=== PATIENT | male | born 1930 | race Caucasian/White ===

== ENCOUNTER 2017-04-10 03:25 | Observation (INO) | payer MEDICARE, OTHER ==
[2017-04-10] VITALS (13 sets, daily range): BP systolic 131–196; BP diastolic 67–93; PULSE 64–81; RESP 16–18; TEMP 97.5–98.6; O2SAT 95–99
[~2017-04-10] VITALS: Ht 165.1 cm; Wt 75.0 kg
[~2017-04-10 03:25] MED LIST: BISA5TAB5 PO; BYST10TA2 PO; CALC250 PO; DEXI60CA3 PO; DIOV320T PO; FISHCAP; HYDR-3580 PO; LEVO.1 PO; SINE25100 PO; TAB-TAB PO; WALKER ROLLING; WHEELCHAIR RENTAL RA
[2017-04-10] MEDS ORDERED: SODIUM CHLORIDE 0.9% FLUSH 10 ML FLUSH IVF PRN (03:45)
[2017-04-10] MEDS ORDERED: NITROGLYCERIN 0.4 MG SL 25 TABS/BTL SL ONE (03:45)
[2017-04-10] MEDS ORDERED: NITROGLYCERIN 2% OINT 1 GM PACKET TOP ONE (03:45)
[2017-04-10] MEDS ORDERED: ASPIRIN 81 MG CHEW TAB PO ONE (03:45)
[2017-04-10] MEDS ORDERED: DIOV320T PO (03:48)
[2017-04-10] MEDS ORDERED: BYST10TA2 PO (03:48)
--- NOTE | 2017-04-10 03:56 | PD ---
HPI Chief Complaint: Chest Pain Time Seen by Provider: 03:34 Travel History International Travel<30 days: No Contact w/Intl Traveler<30days: No Traveled to known affect area: No History of Present Illness HPI The patient is an 86 year old male who presents to the [facility] emergency department with a history of chest pain and dyspnea with exertion that began approximately 2 weeks ago. It became worse today. The chest pain occurs with exertion. The pain is in the left side of his chest. The pain is sharp in character. It was a 6/10 in severity. It radiated to the left arm. The patient denies ever having problems with chest pain in the past. He denies any prior history of coronary artery disease, however he does report having a history of a heart murmur. The patient reports that he last had a stress test done 2 years ago. He denies having any diaphoresis with the chest pain today. He reports that he has had some increased sweating when he rides a stationary bike , however he is newly recently riding a stationary bike. The patient denies having any nausea. On review of systems otherwise, the patient denies any recent fevers, cough, congestion, neck pain, abdominal pain, vomiting, diarrhea , urinary symptoms, or new neurologic symptoms. FOR[facility]LY [facility], [facility] Past Medical History Narrative Medical The patient's past medical history is significant forGERD- causes cough at time , hiatal hernia, hypertension, Parkinson's disease, chronic numbness to the left anterior thigh since having back surgery, and hypothyroid. PCP: Dr. Rena Craft. Arthritis: Yes Asthma: No Heart Rhythm Problems: No Cancer: Yes (SKIN CA) Cardiovascular Problems: No High Cholesterol: No Chest Pain: No Congestive Heart Failure: No COPD: No Cerebrovascular Accident: No Diabetes: No Diminished Hearing: Yes (BILAT HEARING AIDS) Endocrine: Yes GERD: Yes Genitourinary: No Hepatitis: No Hiatal Hernia: Yes Hypertension: Yes Immune Disorder: No Inguinal Hernia: Yes (left side) Implanted Vascular Access Dvce: Yes Kidney Stones: No Musculoskeletal: Yes (RIGHT SHOULDER ARTHRITIS) Neurologic: Yes (PARKINSONS) Parkinson's Disease: Yes Psychiatric: No Reproductive: No Respiratory: No Migraines: No Renal Failure: No Seizures: No Sleep Apnea: No Thyroid Disease: Yes (HYPO) Ulcer: No Tetanus Vaccination: < 5 Years Past Surgical History Narrative Surgical The patient's past surgical history is significant for right shoulder replacement, left inguinal hernia repair, eye surgery, skin cancer resection, bilateral hip replacement. Abdominal Surgery: Yes (LEFT INGUINAL HERNIA REPAIR) AICD: No Body Medical Devices: SCREW TO L3, PENILE IMPLANT, MESH TO LEFT GROIN Cardiac Surgery: No Ear Surgery: No Endocrine Surgery: No Eye Surgery: Yes (BILAT CATARACTS REMOVED & LENS IMPLANTS) Genitourinary Surgery: Yes (TURP) Gynecologic Surgery: No Joint Replacement: Yes (BILAT HIPS) Neurologic Surgery: Yes (L3,4,5 , SCREW IN L3) Oral Surgery: Yes (SKIN GRAFTING IN MOUTH) Pacemaker: No Thoracic Surgery: No Tonsillectomy: Yes Other Surgery: Yes Social History Alcohol Use: Yes (DAILY-1 GLASS OF WINE OR MARTINI) Tobacco Use: No (hx if cigars) Substance Use: No Allergies-Medications (Allergen,Severity, Reaction): Coded Allergies: No Known Allergies (Unverified , 04/10/17) Reported Meds & Prescriptions Reported Meds & Active Scripts Active Reported Synthroid (Levothyroxine Sodium) 100 Mcg Tab 100 Mcg PO DAILY Diovan (Valsartan) 320 Mg Tab 320 Mg PO DAILY Bystolic (Nebivolol) 10 Mg Tab 10 Mg PO BID Review of Systems Except as stated in HPI: all other systems reviewed are Neg General / Constitutional: No: Fever Eyes: No: Visual changes HENT: No: Headaches, Rhinorrhea, Congestion Cardiovascular: Positive: Chest Pain or Discomfort, Dyspnea on exertion Respiratory: Positive: Shortness of Breath, No: Cough Gastrointestinal: No: Nausea, Vomiting, Diarrhea, Abdominal Pain, Changes in Bowel Habits, Indigestion, Loss of Appetite Genitourinary: No: Dysuria Musculoskeletal: No: Pain Skin: No Rash Neurologic: No: Weakness, Focal Abnormalities, Change in Mentation, Slurred Speech, Sensory Disturbance Psychiatric: No: Depression Endocrine: No: Polydipsia Hematologic/Lymphatic: No: Easy Bruising Physical Exam Narrative General: The patient is a well-developed and nourished male in no acute distress. Head and Neck exam: Head is normocephalic atraumatic. Eyes: EOMI, pupils are equal round and reactive to light. Nose: Midline septum with pink mucous membranes Mouth: Dentition unremarkable. Moist mucus membranes. Posterior oropharynx is not erythematous. No tonsillar hypertrophy. Uvula midline. Airway patent. Neck: No palpable lymphadenopathy. No nuchal rigidity. No thyromegaly. Cardiovascular: Irregularly irregular with occasional premature supraventricular complexes noted on telemetry with a 2/6 systolic murmur audible. No murmur is best audible along the left lateral anterior axillary line. Lungs: Clear to auscultation bilaterally. No wheezes, rhonchi, or rales. Abdomen: Soft, without tenderness to palpation in all 4 quadrants of the abdomen. No guarding, rebound, or rigidity. Normal bowel sounds are audible. No tenderness on palpation of McBurney's point. Extremities: No clubbing, cyanosis, or edema. 2+ pulses in all 4 extremities. Back: No spinous process tenderness to palpation. No costovertebral angle tenderness to palpation. Neurologic Exam: Grossly nonfocal. Skin Exam: No rash noted. Intact skin that is warm and dry. Data Data Last Documented VS Vital Signs Date Time Temp Pulse Resp B/P (MAP) Pulse Ox O2 Delivery O2 Flow Rate FiO2 04/10/17 06:22 98.5 77 18 179/89 (119) 99 Nasal Cannula 2.00 Orders Orders Electrocardiogram (04/10/17 03:34) B-Type Natriuretic Peptide (04/10/17 03:34) Ckmb (Isoenzyme) Profile (04/10/17 03:34) Complete Blood Count With Diff (04/10/17 03:34) Comprehensive Metabolic Panel (04/10/17 03:34) Magnesium (Mg) (04/10/17 03:34) Prothrombin Time / Inr (Pt) (04/10/17 03:34) Act Partial Throm Time (Ptt) (04/10/17 03:34) Troponin I (04/10/17 03:34) Lipase (04/10/17 03:34) Chest, Single Ap (04/10/17 03:34) Ecg Monitoring (04/10/17 03:34) Bilateral Bp Monitoring (04/10/17 03:34) Iv Access Insert/Monitor (04/10/17 03:34) Oximetry (04/10/17 03:34) Oxygen Administration (04/10/17 03:34) Aspirin Chew (Aspirin Chew) (04/10/17 03:45) Nitroglycerin 2% Oint (Nitroglycerin 2% (04/10/17 03:45) Sodium Chloride 0.9% Flush (Ns Flush) (04/10/17 03:45) Nitroglycerin Sl (Nitrostat Sl) (04/10/17 03:45) Cta Thor Abd Aorta W Iv C W3d (04/10/17 06:20) CKMB (04/10/17 05:34) CKMB% (04/10/17 05:34) Labs Laboratory Tests Test 04/10/17 03:45 04/10/17 05:34 White Blood Count 7.3 TH/MM3 Red Blood Count 4.32 MIL/MM3 Hemoglobin 13.7 GM/DL Hematocrit 40.8 % Mean Corpuscular Volume 94.3 FL Mean Corpuscular Hemoglobin 31.8 PG Mean Corpuscular Hemoglobin Concent 33.7 % Red Cell Distribution Width 13.9 % Platelet Count 186 TH/MM3 Mean Platelet Volume 9.5 FL Neutrophils (%) (Auto) 70.9 % Lymphocytes (%) (Auto) 16.2 % Monocytes (%) (Auto) 9.4 % Eosinophils (%) (Auto) 2.8 % Basophils (%) (Auto) 0.7 % Neutrophils # (Auto) 5.2 TH/MM3 Lymphocytes # (Auto) 1.2 TH/MM3 Monocytes # (Auto) 0.7 TH/MM3 Eosinophils # (Auto) 0.2 TH/MM3 Basophils # (Auto) 0.1 TH/MM3 CBC Comment DIFF FINAL Differential Comment Prothrombin Time 10.8 SEC Prothromb Time International Ratio 1.0 RATIO Activated Partial Thromboplast Time 25.0 SEC B-Type Natriuretic Peptide 360 PG/ML Blood Urea Nitrogen 31 MG/DL Creatinine 1.17 MG/DL Random Glucose 98 MG/DL Total Protein 6.7 GM/DL Albumin 3.5 GM/DL Calcium Level 8.9 MG/DL Alkaline Phosphatase 84 U/L Aspartate Amino Transf (AST/SGOT) 26 U/L Alanine Aminotransferase (ALT/SGPT) 9 U/L Total Bilirubin 0.6 MG/DL Sodium Level 139 MEQ/L Potassium Level 4.2 MEQ/L Chloride Level 105 MEQ/L Carbon Dioxide Level 24.5 MEQ/L Anion Gap 10 MEQ/L Estimat Glomerular Filtration Rate 59 ML/MIN Total Creatine Kinase 147 U/L Troponin I 0.03 NG/ML Lipase 127 U/L [facility] Medical Decision Making Medical Screen Exam Complete: Yes Emergency Medical Condition: Yes Medical Record Reviewed: Yes Interpretation(s) Last Impressions Chest X-Ray 04/10/17 0334 Signed Impressions: Service Date/Time: Monday, April 10, 2017 03:40 - CONCLUSION: 1. Reticular nodular interstitial densities in the upper lobes. 2. Cardiomegaly and retrocardiac density. This could represent hiatal hernia but descending thoracic aortic aneurysm cannot be excluded. Contrasted CT chest recommended. Robbi Lobato MD Differential Diagnosis Aortic dissection, versus pneumonia, versus new-onset congestive heart failure, versus acute coronary syndrome Narrative Course During the course of the patients emergency department visit, the patients history, examination, and differential diagnosis were reviewed with the patient. The patient was placed on a barrel bung remover and dumper with oximetry and frequent blood pressure monitoring. The patient had [-] IV access obtained and blood work sent for analysis. The patient had an EKG done on arrival. The patient's ECG reveals a sinus rhythm with frequent supraventricular premature complexes, QRS duration is 107 ms, QTc is 433 ms. The patient has no acute ST segment elevation noted. The patient was given 162 mg of aspirin by mouth by ambulance services and nitroglycerin sublingual 1. The patient had written nitroglycerin sublingual by mouth 1 when necessary recurrent chest pain, nitroglycerin 1 inch to the chest wall. The patients laboratory studies were reviewed and remarkable for white count of 7.3, hemoglobin 13.7, platelets 186 with 70.9 neutrophils, 9.4 monocytes, CMP is remarkable for a GFR 59, ALT 9, CPK 147, troponin I 0.03, BNP 360, PT PTT within normal limits. Radiology studies were reviewed and remarkable for a chest x-ray that shows reticular nodular interstitial densities in the upper lobes, cardiomegaly and retrocardiac density. This could represent a hiatal hernia but descending thoracic aortic aneurysm cannot be excluded. Contrasted CT of the chest is recommended. This was ordered. The patient's results are pending at the conclusion of my shift. The patient was noted to be hypertensive. The patient had his hypertension treated with labetalol. Aparna Wan MD Apr 10, 2017 03:56
[2017-04-10 04:07] LABS: AUTOMATED NEUTROPHIL # 5.2 TH/MM3 (1.8-7.7); BASOPHIL # 0.1 TH/MM3 (0-0.2); BASOPHIL % 0.7 % (0.0-2.0); EOSINOPHIL # 0.2 TH/MM3 (0-0.4); EOSINOPHIL % 2.8 % (0.0-4.0); HEMATOCRIT 40.8 % (39.0-51.0); HEMOGLOBIN 13.7 GM/DL (13.0-17.0); LYMPH % 16.2 % (9.0-44.0); LYMPHOCYTE # 1.2 TH/MM3 (1.0-4.8); MEAN CELL VOLUME 94.3 FL (80.0-100.0); MEAN CORPUSCULAR HEMOGLOBIN 31.8 PG (27.0-34.0); MEAN CORPUSCULAR HGB CONC 33.7 % (32.0-36.0); MEAN PLATELET VOLUME 9.5 FL (7.0-11.0); MONO % 9.4 % (0.0-8.0); MONOCYTE # 0.7 TH/MM3 (0-0.9); NEUT % 70.9 % (16.0-70.0); PLATELET COUNT 186 TH/MM3 (150-450); RED BLOOD COUNT 4.32 MIL/MM3 (4.50-5.90); RED CELL DISTRIBUTION WIDTH 13.9 % (11.6-17.2); WHITE BLOOD COUNT 7.3 TH/MM3 (4.0-11.0)
[2017-04-10 04:17] LABS: PROTHROMBIN TIME - PATIENT 10.8 SEC (9.8-11.6)
[2017-04-10] MEDS ORDERED: LEVO.1 PO (04:40)
--- NOTE | 2017-04-10 06:13 | RADRPT ---
EXAM DATE/TIME: 04/10/2017 03:40 [facility] COMPARISON: CHEST PA & LAT, December 23, 2014, 14:36. INDICATIONS : Chest pain MEDICAL HISTORY : Hypertension. Gastroesophageal reflux disease. Parkinson's disease, hypothyroid, skin cancer SURGICAL HISTORY : Tonsillectomy. Pacemaker. Bilateral hip replacement, ENCOUNTER: Initial ACUITY: 1 day PAIN SCORE: 6/10 LOCATION: Bilateral chest FINDINGS: A single view of the chest demonstrates minimal left basilar density. Reticular nodular interstitial disease. No consolidation. Heart enlarged. Retrocardiac density. The cardiomediastinal contours are u nremarkable. Osseous structures are intact. CONCLUSION: 1. Reticular nodular interstitial densities in the upper lobes. 2. Cardiomegaly and retrocardiac density. This could represent hiatal hernia but descending thoracic aortic aneurysm cannot be excluded. Contrasted CT chest recommended. Robbi Lobato MD on April 10, 2017 at 6:09 Board Certified Radiologist. This report was verified electronically.
[2017-04-10 06:34] LABS: ALBUMIN 3.5 GM/DL (3.4-5.0); BLOOD UREA NITROGEN 31 MG/DL (7-18); CALCIUM 8.9 MG/DL (8.5-10.1); CREATININE 1.17 MG/DL (0.60-1.30); GLOMERULAR FILTRATION RATE 59 ML/MIN (>89); GLUCOSE,RANDOM 98 MG/DL (74-106); TOTAL PROTEIN 6.7 GM/DL (6.4-8.2)
[2017-04-10 06:35] LABS: ALKALINE PHOSPHATASE 84 U/L (45-117); ALT (GPT) 9 U/L (12-78); AST (GOT) 26 U/L (15-37); CHLORIDE 105 MEQ/L (98-107); SODIUM (NA) 139 MEQ/L (136-145); TOTAL BILIRUBIN ADULT 0.6 MG/DL (0.2-1.0)
[2017-04-10 06:36] LABS: BICARBONATE 24.5 MEQ/L (21.0-32.0); LIPASE 127 U/L (73-393); TROPONIN I 0.03 NG/ML (0.02-0.05)
[2017-04-10] MEDS ORDERED: LABETALOL HCL 100 MG/20 ML VIAL IV PUSH ONE (07:00)
[2017-04-10 07:21] LABS: MAGNESIUM 2.1 MG/DL (1.5-2.5)
[2017-04-10] MEDS ORDERED: IOHEXOL 350 MG/ML 10 ML VIAL (for RAD DIAG) IVCONTRAST ONE (08:34)
--- NOTE | 2017-04-10 09:26 | RADRPT ---
EXAM DATE/TIME: 04/10/2017 08:28 [facility] COMPARISON: CHEST SINGLE AP, April 10, 2017, 3:40. INDICATIONS : Chest pain and dyspnea on exertion for two weeks. IV CONTRAST: 90 cc Omnipaque 350 (iohexol) IV RADIATION DOSE: 16.25 CTDIvol (mGy) MEDICAL HISTORY : Gastroesophageal reflux disease. Hypertension. SURGICAL HISTORY : TURP, lumbar fusion ENCOUNTER: Initial ACUITY: 1 day PAIN SCALE: 5/10 LOCATION: chest TECHNIQUE: Volumetric scanning was performed using a multi-row detector CT scanner. The data was post processed with a variety of visualization algorithms including full volume maximum intensity projection, multi -planar sliding thin slab reformation, curved planar reformation, and surface rendering techniques. Using automated exposure control and adjustment of the mA and/or kV according to patient size, radiat ion dose was kept as low as reasonably achievable to obtain optimal diagnostic quality images. DICOM format image data is available electronically for review and comparison. FINDINGS: LUNGS: Intralobular septal thickening and patchy adjacent 3 mm and 4 mm nodules in the anterior right upper lobe. 6 mm nodule in the superior segment of the right lower lobe. groundglass opacities in the poste rior upper lobes and lower lobes bilaterally. MEDIASTINUM: Dense coronary artery calcifications. Right hilar nodes measuring up to 1.2 cm subcentimeter mediasti nal nodes are not meet CT size criteria. Heart is mildly enlarged without significant pericardial eff usion. ABDOMEN: Large hiatal hernia. The liver and spleen are free of focal defects. The gallbladder and pancreas dem onstrate no abnormality. Mild adreniform enlargement of the adrenal glands with 1.1 cm nodule in the right medial limb. The kidneys demonstrate no evidence of solid renal mass or hydronephrosis. No free fluid or abdominal masses are identified. No para-aortic adenopathy is seen. PELVIS: No evidence of free fluid or pelvic mass. No abnormally enlarged inguinal or retroperitoneal lymph no melisa are present. Prosthesis in place. The bladder is unremarkable. Bilateral hip arthroplasties in pl [place]. THORACIC AORTA: The ascending thoracic aorta is ectatic measuring up to 3.9 cm. There is stent a 3 vessel arch anatom y. Thoracic arch and descending thoracic aorta demonstrates scattered calcified plaque without eviden ce for aneurysm or dissection. There is no evidence of aneurysm or dissection. There is tortuosity of the distal blastic aorta at the hiatus. ABDOMINAL AORTA: The aorta is normal in caliber without aneurysm or dissection. The renal arteries are patent bilater ally. The proximal celiac and superior mesenteric arteries are patent and normal in diameter. PELVIC VESSELS: The internal iliac and external iliac vessels are patent without aneurysm or stenosis. CONCLUSION: 1. Ectatic ascending thoracic aorta measuring up to 3.9 cm. Otherwise, no evidence for aortic dissect ion or aneurysm. Abnormality on radiograph corresponds to large hiatal hernia. 2. Mild intralobular septal thickening and patchy groundglass opacities which may reflect mild positi ve fluid balance. 3. At least 3 distinct pulmonary nodules measuring up to 6 mm. Followup examination may be performed in 12 months particularly if patient is high risk, per 2017 Fleischner criteria. 4. 1.1 cm right adrenal mass. This is not fully characterized due to single phase contrast examinatio n. Further characterization may be performed with noncontrast CT or adrenal mass protocol CT/MRI exam if clinically warranted. 5. Dense coronary artery calcifications. 6. Nonspecific minimal right hilar adenopathy. Enmanuel Samson MD on April 10, 2017 at 9:02 Board Certified Radiologist. This report was verified electronically.
--- NOTE | 2017-04-10 10:09 | PD ---
Data Data Last Documented VS Vital Signs Date Time Temp Pulse Resp B/P (MAP) Pulse Ox O2 Delivery O2 Flow Rate FiO2 04/10/17 09:43 68 18 185/89 (121) 98 Nasal Cannula 2.00 04/10/17 06:22 98.5 Orders Orders Electrocardiogram (04/10/17 03:34) B-Type Natriuretic Peptide (04/10/17 03:34) Ckmb (Isoenzyme) Profile (04/10/17 03:34) Complete Blood Count With Diff (04/10/17 03:34) Comprehensive Metabolic Panel (04/10/17 03:34) Magnesium (Mg) (04/10/17 03:34) Prothrombin Time / Inr (Pt) (04/10/17 03:34) Act Partial Throm Time (Ptt) (04/10/17 03:34) Troponin I (04/10/17 03:34) Lipase (04/10/17 03:34) Chest, Single Ap (04/10/17 03:34) Ecg Monitoring (04/10/17 03:34) Bilateral Bp Monitoring (04/10/17 03:34) Iv Access Insert/Monitor (04/10/17 03:34) Oximetry (04/10/17 03:34) Oxygen Administration (04/10/17 03:34) Aspirin Chew (Aspirin Chew) (04/10/17 03:45) Nitroglycerin 2% Oint (Nitroglycerin 2% (04/10/17 03:45) Sodium Chloride 0.9% Flush (Ns Flush) (04/10/17 03:45) Nitroglycerin Sl (Nitrostat Sl) (04/10/17 03:45) Cta Thor Abd Aorta W Iv C W3d (04/10/17 06:20) CKMB (04/10/17 05:34) CKMB% (04/10/17 05:34) Labetalol Inj (Trandate Inj) (04/10/17 07:00) Iohexol 350 Inj (Omnipaque 350 Inj) (04/10/17 08:34) Furosemide Inj (Lasix Inj) (04/10/17 10:15) Admit Order (Ed Use Only) (04/10/17 ) Rehab Manager / Telemetry ALFONSO.Q8H (04/10/17 10:07) Vital Signs (Adult) Q4H (04/10/17 10:07) Diet Heart Healthy (04/10/17 Lunch) Activity Oob With Assistance (04/10/17 10:07) Notify Dr: Other (04/10/17 10:07) Labs Laboratory Tests Test 04/10/17 03:45 04/10/17 05:34 White Blood Count 7.3 TH/MM3 Red Blood Count 4.32 MIL/MM3 Hemoglobin 13.7 GM/DL Hematocrit 40.8 % Mean Corpuscular Volume 94.3 FL Mean Corpuscular Hemoglobin 31.8 PG Mean Corpuscular Hemoglobin Concent 33.7 % Red Cell Distribution Width 13.9 % Platelet Count 186 TH/MM3 Mean Platelet Volume 9.5 FL Neutrophils (%) (Auto) 70.9 % Lymphocytes (%) (Auto) 16.2 % Monocytes (%) (Auto) 9.4 % Eosinophils (%) (Auto) 2.8 % Basophils (%) (Auto) 0.7 % Neutrophils # (Auto) 5.2 TH/MM3 Lymphocytes # (Auto) 1.2 TH/MM3 Monocytes # (Auto) 0.7 TH/MM3 Eosinophils # (Auto) 0.2 TH/MM3 Basophils # (Auto) 0.1 TH/MM3 CBC Comment DIFF FINAL Differential Comment Prothrombin Time 10.8 SEC Prothromb Time International Ratio 1.0 RATIO Activated Partial Thromboplast Time 25.0 SEC B-Type Natriuretic Peptide 360 PG/ML Blood Urea Nitrogen 31 MG/DL Creatinine 1.17 MG/DL Random Glucose 98 MG/DL Total Protein 6.7 GM/DL Albumin 3.5 GM/DL Calcium Level 8.9 MG/DL Magnesium Level 2.1 MG/DL Alkaline Phosphatase 84 U/L Aspartate Amino Transf (AST/SGOT) 26 U/L Alanine Aminotransferase (ALT/SGPT) 9 U/L Total Bilirubin 0.6 MG/DL Sodium Level 139 MEQ/L Potassium Level 4.2 MEQ/L Chloride Level 105 MEQ/L Carbon Dioxide Level 24.5 MEQ/L Anion Gap 10 MEQ/L Estimat Glomerular Filtration Rate 59 ML/MIN Total Creatine Kinase 147 U/L Creatine Kinase MB 4.2 NG/ML Troponin I 0.03 NG/ML Lipase 127 U/L [facility] Medical Record Reviewed: Yes Supervised Visit with EBONY: No Narrative Course CBC & BMP Diagram 04/10/17 03:45 04/10/17 05:34 Total Protein 6.7, Albumin 3.5, Calcium Level 8.9, Magnesium Level 2.1, Alkaline Phosphatase 84, Aspartate Amino Transf (AST/SGOT) 26, Alanine Aminotransferase (ALT/SGPT) 9 L, Total Bilirubin 0.6 Troponin 0.03 BNP 360 Lasix given pain resolved after prior provided gave nitro d/w Dr [place] Diagnosis Primary Impression: Pulmonary edema Additional Impression: Chest pain Admitting Information Admitting Physician Requests: Observation Hiren Lion MD Apr 10, 2017 10:09
[2017-04-10] MEDS ORDERED: ONDANSETRON HCL 4 MG/2 ML VIAL IVP PRN (10:15)
[2017-04-10] MEDS ORDERED: FUROSEMIDE 40 MG/4 ML VIAL IV PUSH ONE (10:15)
[2017-04-10] MEDS ORDERED: SODIUM CHLORIDE 0.9% FLUSH 10 ML FLUSH IV FLUSH PRN (10:15)
[2017-04-10] MEDS ORDERED: NALOXONE HCL 0.4 MG/ML AMP IV PUSH PRN (10:15)
[2017-04-10] MEDS ORDERED: BISACODYL 10 MG SUPP RECTAL PRN (10:15)
[2017-04-10] MEDS ORDERED: MAGNESIUM HYDROXIDE SUSP 30 ML CUP PO PRN (10:15)
--- NOTE | 2017-04-10 10:31 | EKG ---
Date Performed: 04/10/2017 Time Performed: 03:35:14 PTAGE: 86 years EKG: Sinus rhythm WITH FREQUENT SUPRAVENTRICULAR PREMATURE COMPLEXES LEFT VENTRICULAR HYPERTROPHY AND ST-T CHANGE ABNO RMAL ECG Compared to PREVIOUS TRACING frequent ectopy is new PREVIOUS TRACIN03/07/2016 11.29 DOCTOR: Piter Truong Interpretating Date/Time 04/10/2017 10:29:01
[2017-04-10] MEDS: HEPARIN SODIUM - SQ 10,000 UNITS/ML VIAL SQ SCH ×2 (11:06→23:42)
[2017-04-10] MEDS: hydrALAZINE HCL 50 MG TAB PO PRN ×2 (11:39→15:41)
[2017-04-10 12:41] LABS: TROPONIN I 0.05 NG/ML (0.02-0.05)
[2017-04-10] MEDS ORDERED: SINE25TA PO (13:30)
--- NOTE | 2017-04-10 15:50 | MB ---
cc: DIMITRI POWELL DO DATE OF CONSULTATION: April 10, 2017 REASON FOR CONSULTATION Chest pain/shortness of breath. HISTORY OF PRESENT ILLNESS Bishop Ayala is a pleasant 86-year-old male who presented to [facility] Emergency Room on April 10, 2017 due to chest pain and shortness of breath. He states that the chest pain and shortness of breath started around 2 weeks ago but has been becoming worse over the past 2 days. Apparently, his chest pain occurs with exertion and is on the left side of his chest. Overall, it is sharp and stabbing in nature and seems to only last a few seconds when he does get it. His main concern is shortness of breath with any type of exertion. He denies any history of chest pain or shortness of breath. He previously had a stress test done around [id number] years ago by he believes Dr. Rodríguez in the office, although he is unsure. He denies any other symptoms at this time. In seeing him he is currently resting comfortably without chest pain or shortness of breath. PAST MEDICAL HISTORY 1. Gastroesophageal reflux disease. 2. Hiatal hernia. 3. Hypertension. 4. Parkinson's disease. 5. Chronic numbness of the left anterior thigh since back surgery. 6. Hypothyroidism. PAST SURGICAL HISTORY 1. Right shoulder replacement. 2. Left inguinal hernia repair. 3. Eye surgery. 4. Skin cancer resection. 5. Bilateral hip replacement. ALLERGIES NO KNOWN DRUG ALLERGIES. MEDICATIONS 1. Bystolic 10 mg b.i.d. 2. Diovan 320 mg daily. 3. Sinemet 25/100 every 8 hours. 4. Synthroid 100 mcg daily. FAMILY HISTORY Denies premature coronary artery disease or sudden cardiac within the family. SOCIAL HISTORY The patient drinks 1 glass of wine or a Martini at night. He denies current tobacco abuse but previously smoked cigars. Denies drug abuse. REVIEW OF SYSTEMS A 14-systems were reviewed including osteopathic pertinent positives and negatives above, otherwise negative. PHYSICAL EXAMINATION VITAL SIGNS: Temperature 97.6, heart rate 69, blood pressure 196/93, respirations 16, pulse ox 95% on 2 liters. GENERAL: The patient appears well, in no acute distress, alert awake and oriented x3. HEENT: Extraocular muscles intact. Mucous membranes moist. NECK: Supple. No JVD at 45 degrees. No carotid bruits heard bilaterally. Carotid upstroke is brisk in nature. HEART: Regular rate and rhythm. Positive first and second heart sounds with a 1/6 crescendo-decrescendo murmur to the right sternal border. LUNGS: Lungs have decreased breath sounds bilaterally but no overt wheezes, rales or rhonchi. ABDOMEN: Abdomen is soft, nontender, nondistended. No organomegaly noted. EXTREMITIES: Show no clubbing, cyanosis or edema. Femoral and distal pulses intact bilaterally. NEUROLOGIC: Neurologically no focal deficits. SKIN: Skin warm, dry and intact. OSTEOPATHIC: No kyphoscoliosis, lordosis or paraspinal tender points. LABORATORY FINDINGS Hemoglobin 13.7, hematocrit 40.8, platelets 186. Potassium 4.2, BUN 31, creatinine 1.17. Troponin 0.05. BNP 360. ELECTROCARDIOGRAM Electrocardiogram (April 10, 2017 at 0335) sinus rhythm with frequent supraventricular complexes, LVH with secondary ST-T wave changes. IMPRESSION 1. Acute heart failure, unsure at this time if systolic versus diastolic. 2. Atypical chest pain for coronary insufficiency. 3. Hypertension. 4. Most likely mild aortic stenosis. RECOMMENDATIONS 1. Mr. Ayala appears to be presenting with atypical chest pain which does not appear to be acute coronary syndrome. We will await echo results and then possibly further work this up with an ischemic evaluation. 2. He also appears to have acute heart failure and this may be due to his elevated hypertension and diastolic heart failure versus new-onset systolic heart failure. 3. Will check an echo to look at his overall left ventricular function, cardiac structure and possible valvulopathies. 4. He will need further blood pressure management and control. 5. He will need to be diuresed gently. 6. Further recommendations will be made based on the hospital course. Thank you for allowing me to see Bishop Ayala, if there are any questions, please do not hesitate to call. Dimitri Powell DO VGP/TLL /2:36 PM /3:25 PM
[2017-04-10] MEDS: VALSARTAN 160 MG TAB PO SCH (17:01)
[2017-04-10] MEDS: LEVOTHYROXINE SODIUM 100 MCG TAB PO SCH (17:02)
[2017-04-10] MEDS ORDERED: CARBIDOPA/LEVODOPA 25 MG/100 MG TAB PO SCH (18:00)
[2017-04-10] MEDS: CARBIDOPA/LEVODOPA 25 MG/100 MG TAB PO SCH ×2 (18:38→21:16)
[2017-04-10] MEDS: SPIRONOLACTONE 25 MG TAB PO SCH (18:38)
[2017-04-10] MEDS: FUROSEMIDE 40 MG/4 ML VIAL IV PUSH SCH (18:38)
[2017-04-10 19:41] LABS: TROPONIN I 0.03 NG/ML (0.02-0.05)
[2017-04-10] MEDS: DOCUSATE SODIUM 50 MG/SENNA 8.6 MG TAB PO SCH (21:16)
[2017-04-10] MEDS: NEBIVOLOL 10 MG TAB PO SCH (21:16)
[2017-04-10] MEDS: SODIUM CHLORIDE 0.9% FLUSH 10 ML FLUSH IV FLUSH SCH (21:16)
[2017-04-11] VITALS (15 sets, daily range): BP systolic 103–179; BP diastolic 55–81; PULSE 51–68; RESP 16–17; TEMP 97.6–98.8; O2SAT 97–100
[2017-04-11] MEDS: CARBIDOPA/LEVODOPA 25 MG/100 MG TAB PO SCH ×5 (05:27→22:09)
[2017-04-11] MEDS: LEVOTHYROXINE SODIUM 100 MCG TAB PO SCH (05:27)
[2017-04-11] MEDS: hydrALAZINE HCL 50 MG TAB PO PRN (05:52)
[2017-04-11] MEDS: SODIUM CHLORIDE 0.9% FLUSH 10 ML FLUSH IV FLUSH SCH ×2 (08:47→22:09)
[2017-04-11] MEDS: ASPIRIN 81 MG CHEW TAB CHEW SCH (08:47)
[2017-04-11] MEDS: DOCUSATE SODIUM 50 MG/SENNA 8.6 MG TAB PO SCH ×2 (08:48→22:09)
[2017-04-11] MEDS: FUROSEMIDE 40 MG/4 ML VIAL IV PUSH SCH (08:48)
[2017-04-11] MEDS: NEBIVOLOL 10 MG TAB PO SCH ×2 (08:48→22:09)
[2017-04-11] MEDS: VALSARTAN 160 MG TAB PO SCH (08:49)
[2017-04-11] MEDS: SPIRONOLACTONE 25 MG TAB PO SCH ×2 (08:49→18:11)
[2017-04-11 10:21] LABS: AUTOMATED NEUTROPHIL # 5.6 TH/MM3 (1.8-7.7); BASOPHIL % 0.6 % (0.0-2.0); EOSINOPHIL # 0.2 TH/MM3 (0-0.4); EOSINOPHIL % 2.2 % (0.0-4.0); LYMPH % 14.7 % (9.0-44.0); LYMPHOCYTE # 1.1 TH/MM3 (1.0-4.8); MEAN CELL VOLUME 93.9 FL (80.0-100.0); MEAN CORPUSCULAR HGB CONC 34.1 % (32.0-36.0); MEAN PLATELET VOLUME 9.4 FL (7.0-11.0); MONO % 7.3 % (0.0-8.0); MONOCYTE # 0.5 TH/MM3 (0-0.9); NEUT % 75.2 % (16.0-70.0); PLATELET COUNT 203 TH/MM3 (150-450); RED BLOOD COUNT 4.36 MIL/MM3 (4.50-5.90); RED CELL DISTRIBUTION WIDTH 13.8 % (11.6-17.2); WHITE BLOOD COUNT 7.4 TH/MM3 (4.0-11.0)
[2017-04-11 11:12] LABS: BICARBONATE 26.3 MEQ/L (21.0-32.0); CALCIUM 8.9 MG/DL (8.5-10.1); CREATININE 1.38 MG/DL (0.60-1.30)
[2017-04-11] MEDS: HEPARIN SODIUM - SQ 10,000 UNITS/ML VIAL SQ SCH ×2 (12:08→22:10)
--- NOTE | 2017-04-11 12:10 | HHI.HP ---
[facility] Rena Craft MD Admission Diagnosis Chest Pain; CHF Diagnoses: Travel History International Travel<30 Days: No Contact w/Intl Traveler <30 Da: No Traveled to Known Affected Are: No History of Present Illness This document reflects an encounter with this patient on 04/10/17, this is a belated dictation There is a very pleasant 86-year-old gentleman who unfortunately is a very poor historian secondary to poor memory. He was brought into the emergency department at [facility] In the early hours of 04/10/17 with chest pain and difficulty breathing. This apparently has been going on for 2 weeks. It became worse the day prior to the admission. The pain is sharp in character, substernal in location, 6/10 in intensity, radiated to the left upper extremity. The patient was seen by the undersigned in room 91 in the H Pod at the emergency department. He is alert oriented but having serious problems with recent events. He denied any syncope , no diaphoresis, he does have some swelling in the ankles, he also has been progressively less able to perform his activities of daily living because of exertional dyspnea. Chronic cough because of reflux disease. No fever. Review of Systems Other 10 systems reviewed and otherwise negative Past Family Social History Past Medical History Arthritis Skin cancer Cardiac murmur Coronary disease Hearing loss Hiatal hernia Hypertension Left inguinal hernia Right shoulder pain Parkinson's disease Hypothyroid Past Surgical History Left inguinal hernia repair Penile implant Left groin mesh Screw to L3 Bilateral cataract removal Bilateral lens implant TURP Bilateral hip replacement Had to receive some grafting in his mouth Tonsillectomy Right shoulder replacement Reported Medications Reported Meds & Active Scripts Active Reported Sinemet (Carbidopa-Levodopa) 25-100 Mg Tab 1 Tab PO 5 TIMES A DAY Synthroid (Levothyroxine Sodium) 100 Mcg Tab 100 Mcg PO DAILY Diovan (Valsartan) 320 Mg Tab 320 Mg PO DAILY Bystolic (Nebivolol) 10 Mg Tab 10 Mg PO BID Allergies: Coded Allergies: No Known Allergies (Unverified , 04/10/17) Family History Reviewed but noncontributory Social History No smoking, he drinks 1 alcoholic drink a day, mostly Martini, no illicit drug use Physical Exam Vital Signs Vital Signs Date Time Temp Pulse Resp B/P (MAP) Pulse Ox O2 Delivery O2 Flow Rate FiO2 04/11/17 08:43 98.6 57 16 125/60 (81) 98 04/11/17 08:27 97.9 54 16 103/55 (71) 97 04/11/17 08:00 54 04/11/17 06:36 165/79 (107) 97 04/11/17 05:51 68 04/11/17 05:24 52 179/81 (113) 04/11/17 04:09 98.6 58 17 174/77 (109) 97 04/11/17 03:58 60 04/11/17 00:00 60 04/10/17 23:39 98.4 81 17 134/71 (92) 96 04/10/17 20:07 98.3 79 17 131/69 (89) 04/10/17 20:04 76 04/10/17 16:57 98.6 73 16 135/67 (89) 96 04/10/17 16:05 97.5 73 16 153/70 (97) 98 04/10/17 15:20 73 04/10/17 12:13 97.6 69 16 196/93 (127) 95 Physical Exam GENERAL: This is a well-nourished, well-developed patient, in no apparent distress. SKIN: No rashes, ecchymoses or lesions. Cool and dry. HEAD: Atraumatic. Normocephalic. No temporal or scalp tenderness. EYES: Pupils equal round and reactive. Extraocular motions intact. No scleral icterus. No injection or drainage. ENT: Nose without bleeding, purulent drainage or septal hematoma. Throat without erythema, tonsillar hypertrophy or exudate. Uvula midline. Airway patent. NECK: Trachea midline. JVD at 6 cm, no lymphadenopathy. Supple, nontender, no meningeal signs. CARDIOVASCULAR: Regular rate and rhythm , systolic murmur present RESPIRATORY: Bilateral fine crackles GASTROINTESTINAL: Abdomen soft, non-tender, nondistended. No hepato-splenomegaly , or palpable masses. No guarding. MUSCULOSKELETAL: Extremities without clubbing, cyanosis, or edema. No joint tenderness, effusion, or edema noted. No calf tenderness. NEUROLOGICAL: Awake and alert. Cranial nerves II through XII intact. Motor and sensory grossly within normal limits. Normal speech. Laboratory Laboratory Tests Test 04/10/17 18:56 04/11/17 09:56 Total Creatine Kinase 219 Troponin I 0.03 White Blood Count 7.4 Red Blood Count 4.36 Hemoglobin 14.0 Hematocrit 41.0 Mean Corpuscular Volume 93.9 Mean Corpuscular Hemoglobin 32.0 Mean Corpuscular Hemoglobin Concent 34.1 Red Cell Distribution Width 13.8 Platelet Count 203 Mean Platelet Volume 9.4 Neutrophils (%) (Auto) 75.2 Lymphocytes (%) (Auto) 14.7 Monocytes (%) (Auto) 7.3 Eosinophils (%) (Auto) 2.2 Basophils (%) (Auto) 0.6 Neutrophils # (Auto) 5.6 Lymphocytes # (Auto) 1.1 Monocytes # (Auto) 0.5 Eosinophils # (Auto) 0.2 Basophils # (Auto) 0.0 CBC Comment DIFF FINAL Differential Comment Blood Urea Nitrogen 30 Creatinine 1.38 Random Glucose 138 Calcium Level 8.9 Sodium Level 139 Potassium Level 3.8 Chloride Level 105 Carbon Dioxide Level 26.3 Anion Gap 8 Estimat Glomerular Filtration Rate 49 Result Diagram: 04/11/17 0956 04/11/17 0956 Imaging Last Impressions Aorta CTA 04/10/17 0620 Signed Impressions: Service Date/Time: Monday, April 10, 2017 08:28 - CONCLUSION: 1. Ectatic ascending thoracic aorta measuring up to 3.9 cm. Otherwise, no evidence for aortic dissection or aneurysm. Abnormality on radiograph corresponds to large hiatal hernia. 2. Mild intralobular septal thickening and patchy groundglass opacities which may reflect mild positive fluid balance. 3. At least 3 distinct pulmonary nodules measuring up to 6 mm. Followup examination may be performed in 12 months particularly if patient is high risk, per 2017 Fleischner criteria. 4. 1.1 cm right adrenal mass. This is not fully characterized due to single phase contrast examination. Further characterization may be performed with noncontrast CT or adrenal mass protocol CT/MRI exam if clinically warranted. 5. Dense coronary artery calcifications. 6. Nonspecific minimal right hilar adenopathy. Enmanuel Samson MD Chest X-Ray 04/10/17 0334 Signed Impressions: Service Date/Time: Monday, April 10, 2017 03:40 - CONCLUSION: 1. Reticular nodular interstitial densities in the upper lobes. 2. Cardiomegaly and retrocardiac density. This could represent hiatal hernia but descending thoracic aortic aneurysm cannot be excluded. Contrasted CT chest recommended. MD Jessica Herring VTE Risk Assessment Caprinrena VTE Risk Assessment: Mod/High Risk (score >= 2) Caprini Risk Assessment Model Point Value = 1 Point Value = 2 Point Value = 3 Point Value = 5 Age 41-60 Minor surgery BMI > 25 kg/m2 Swollen legs Varicose veins or History of unexplained or recurrent spontaneous Oral contraceptives or hormone replacement Sepsis (< 1 month) Serious lung disease, including pneumonia (< 1 month) Abnormal pulmonary function Acute myocardial infarction Congestive heart failure (< 1 month) History of inflammatory bowel disease Medical patient at bed rest Age 61-74 Arthroscopic surgery Major open surgery (> 45 min) Laparoscopic surgery (> 45 min) Malignancy Confined to bed (> 72 hours) Immobilizing plaster cast Central venous access Age >= 75 History of VTE Family history of VTE Factor V Leiden Prothrombin [id number] Lupus anticoagulant Anticardiolipin antibodies Elevated serum homocysteine Heparin-induced thrombocytopenia Other congenital or acquired thrombophilia Stroke (< 1 month) Elective arthroplasty Hip, pelvis, or leg fracture Acute spinal cord injury (< 1 month) Prophylaxis Regimen Total Risk Factor Score Risk Level Prophylaxis Regimen 0-1 Low Early ambulation 2 Moderate Order ONE of the following: *Sequential Compression Device (SCD) *Heparin 5000 units SQ BID 3-4 Higher Order ONE of the following medications: *Heparin 5000 units SQ TID *Enoxaparin/Lovenox 40 mg SQ daily (WT < 150 kg, CrCl > 30 mL/min) *Enoxaparin/Lovenox 30 mg SQ daily (WT < 150 kg, CrCl > 10-29 mL/min) *Enoxaparin/Lovenox 30 mg SQ BID (WT < 150 kg, CrCl > 30 mL/min) AND/OR *Sequential Compression Device (SCD) 5 or more Highest Order ONE of the following medications: *Heparin 5000 units SQ TID (Preferred with Epidurals) *Enoxaparin/Lovenox 40 mg SQ daily (WT < 150 kg, CrCl > 30 mL/min) *Enoxaparin/Lovenox 30 mg SQ daily (WT < 150 kg, CrCl > 10-29 mL/min) *Enoxaparin/Lovenox 30 mg SQ BID (WT < 150 kg, CrCl > 30 mL/min) AND *Sequential Compression Device (SCD) Assessment and Plan Assessment and Plan Assessment Chest pain, rule out acute coronary event Possible heart failure, type unclear Poor memory 3.9 cm ascending aorta History pulmonary nodules 1.1 cm right adrenal mass Coronary calcification Right hilar lymphadenopathy Retrocardiac density Hiatal hernia Cardiac murmur Management The patient has been placed on observation Telemetry Serial CKs and troponin Continue home medications Cardiology consultation 2-D echocardiogram ordered Lasix 40 mg IV every 12 hours ordered Fasting lipid profile Discussed with patient Discussed with nurse Discussed with emergency physician 40 minutes This is a belated dictation, it reflects an encounter with this patient on 04/10 April Canada MD Apr 11, 2017 12:10
--- NOTE | 2017-04-11 12:28 | PD.CARD.PN ---
Subjective Subjective Remarks No events overnight No chest pain SOB is much better Objective Medications Current Medications Medications (Trade) Dose Ordered Sig/Ariel Route Start Time Stop Time Status Last Admin (NS Flush) 2 ml UNSCH PRN IV FLUSH 04/10/17 10:15 (NS Flush) 2 ml BID IV FLUSH 04/10/17 21:00 04/11/17 08:47 (Zofran Inj) 4 mg Q6H PRN IVP 04/10/17 10:15 (Heparin Inj) 5,000 units Q12H SQ 04/10/17 11:00 04/11/17 12:08 (Narcan Inj) 0.4 mg UNSCH PRN IV PUSH 04/10/17 10:15 (Taylor-Colace) 1 tab BID PO 04/10/17 21:00 04/11/17 08:48 (Milk Of Magnesia Liq) 30 ml Q12H PRN PO 04/10/17 10:15 (Dulcolax Supp) 10 mg DAILY PRN RECTAL 04/10/17 10:15 (Lasix Inj) 40 mg BID@18 IV PUSH 04/10/17 18:00 04/11/17 08:48 (Apresoline) 50 mg Q4H PRN PO 04/10/17 10:15 04/11/17 05:52 (Aldactone) 25 mg BID@18 PO 04/10/17 18:00 04/11/17 08:49 (Aspirin Chew) 81 mg DAILY CHEW 04/11/17 09:00 04/11/17 08:47 (Synthroid) 100 mcg DAILY@0600 PO 04/10/17 17:00 04/11/17 05:27 (Bystolic) 10 mg BID PO 04/10/17 21:00 04/11/17 08:48 (Diovan) 320 mg DAILY PO 04/10/17 16:30 04/11/17 08:49 (Sinemet 25-100 Mg) 2 tab BID@1630,2100 PO 04/10/17 16:30 04/10/17 21:16 (Sinemet 25-100 Mg) 1 tab DAILY@0600 PO 04/11/17 06:00 04/11/17 05:27 (Sinemet 25-100 Mg) 3 tab BID@0930,1300 PO 04/11/17 09:30 04/11/17 12:06 Vital Signs / I&O Vital Signs Date Time Temp Pulse Resp B/P (MAP) Pulse Ox O2 Delivery O2 Flow Rate FiO2 04/11/17 12:22 97.6 51 16 128/60 (82) 99 04/11/17 08:43 98.6 57 16 125/60 (81) 98 04/11/17 08:27 97.9 54 16 103/55 (71) 97 04/11/17 08:00 54 04/11/17 06:36 165/79 (107) 97 04/11/17 05:51 68 04/11/17 05:24 52 179/81 (113) 04/11/17 04:09 98.6 58 17 174/77 (109) 97 04/11/17 03:58 60 04/11/17 00:00 60 04/10/17 23:39 98.4 81 17 134/71 (92) 96 04/10/17 20:07 98.3 79 17 131/69 (89) 04/10/17 20:04 76 04/10/17 16:57 98.6 73 16 135/67 (89) 96 04/10/17 16:05 97.5 73 16 153/70 (97) 98 04/10/17 15:20 73 I/O 04/10/17 04/10/17 04/10/17 04/11/17 04/11/17 04/11/17 07:00 15:00 23:00 07:00 15:00 23:00 Intake Total 240 ml Output Total 200 ml 100 ml Balance -200 ml -100 ml 240 ml Intake Oral 240 ml Output Urine Total 200 ml 100 ml Physical Exam GENERAL: NAD, AAOx3 SKIN: Warm and dry. HEAD: Atraumatic. Normocephalic. EYES: Pupils equal and round. No scleral icterus. No injection or drainage. ENT: No nasal bleeding or discharge. Mucous membranes pink and moist. NECK: Trachea midline. No JVD. CARDIOVASCULAR: Regular rate and rhythm. RESPIRATORY: No accessory muscle use. Clear to auscultation. Breath sounds equal bilaterally. GASTROINTESTINAL: Abdomen soft, non-tender, nondistended. Hepatic and splenic margins not palpable. MUSCULOSKELETAL: Extremities without clubbing, cyanosis, or edema. No obvious deformities. NEUROLOGICAL: Awake and alert. No obvious cranial nerve deficits. Motor grossly within normal limits. Five out of 5 muscle strength in the arms and legs. Normal speech. PSYCHIATRIC: Appropriate mood and affect; insight and judgment normal. Laboratory Laboratory Tests Test 04/10/17 18:56 04/11/17 09:56 Total Creatine Kinase 219 U/L Troponin I 0.03 NG/ML White Blood Count 7.4 TH/MM3 Red Blood Count 4.36 MIL/MM3 Hemoglobin 14.0 GM/DL Hematocrit 41.0 % Mean Corpuscular Volume 93.9 FL Mean Corpuscular Hemoglobin 32.0 PG Mean Corpuscular Hemoglobin Concent 34.1 % Red Cell Distribution Width 13.8 % Platelet Count 203 TH/MM3 Mean Platelet Volume 9.4 FL Neutrophils (%) (Auto) 75.2 % Lymphocytes (%) (Auto) 14.7 % Monocytes (%) (Auto) 7.3 % Eosinophils (%) (Auto) 2.2 % Basophils (%) (Auto) 0.6 % Neutrophils # (Auto) 5.6 TH/MM3 Lymphocytes # (Auto) 1.1 TH/MM3 Monocytes # (Auto) 0.5 TH/MM3 Eosinophils # (Auto) 0.2 TH/MM3 Basophils # (Auto) 0.0 TH/MM3 CBC Comment DIFF FINAL Differential Comment Blood Urea Nitrogen 30 MG/DL Creatinine 1.38 MG/DL Random Glucose 138 MG/DL Calcium Level 8.9 MG/DL Sodium Level 139 MEQ/L Potassium Level 3.8 MEQ/L Chloride Level 105 MEQ/L Carbon Dioxide Level 26.3 MEQ/L Anion Gap 8 MEQ/L Estimat Glomerular Filtration Rate 49 ML/MIN Assessment and Plan Problem List: (1) CHF (congestive heart failure) ICD Codes: I50.9 - Heart failure, unspecified (2) SOB (shortness of breath) on exertion ICD Codes: R06.02 - Shortness of breath (3) Chest pain ICD Codes: R07.9 - Chest pain, unspecified Status: Acute Assessment and Plan 1) Acute CHF Appears better compensated Unsure if diastolic with accelerated HTN vs new onset systolic HF 2) 2D echo pending 3) Atypical chest pain Plan for stress test tomorrow morning Dimitri Lion DO Apr 11, 2017 12:27
--- NOTE | 2017-04-11 14:22 | HHI.PR ---
Subjective Interval History Alert, oriented, breathing better, wants to go home, no chest pain Review of Systems Constitutional Constitutional Remarks 10 systems reviewed and negative except for the above Vitals/Results Intake & Output 04/11/17 04/11/17 04/12/17 15:00 23:00 07:00 Intake Total 240 ml Balance 240 ml Intake Oral 240 ml Vital Signs Vital Signs Date Time Temp Pulse Resp B/P (MAP) Pulse Ox O2 Delivery O2 Flow Rate FiO2 04/11/17 12:22 97.6 51 16 128/60 (82) 99 04/11/17 08:43 98.6 57 16 125/60 (81) 98 04/11/17 08:27 97.9 54 16 103/55 (71) 97 04/11/17 08:00 54 04/11/17 06:36 165/79 (107) 97 04/11/17 05:51 68 04/11/17 05:24 52 179/81 (113) 04/11/17 04:09 98.6 58 17 174/77 (109) 97 04/11/17 03:58 60 04/11/17 00:00 60 04/10/17 23:39 98.4 81 17 134/71 (92) 96 04/10/17 20:07 98.3 79 17 131/69 (89) 04/10/17 20:04 76 04/10/17 16:57 98.6 73 16 135/67 (89) 96 04/10/17 16:05 97.5 73 16 153/70 (97) 98 04/10/17 15:20 73 CBC/BMP: 04/11/17 0956 04/11/17 0956 Lab Results Laboratory Tests Test 04/10/17 18:56 04/11/17 09:56 Total Creatine Kinase 219 U/L Troponin I 0.03 NG/ML White Blood Count 7.4 TH/MM3 Red Blood Count 4.36 MIL/MM3 Hemoglobin 14.0 GM/DL Hematocrit 41.0 % Mean Corpuscular Volume 93.9 FL Mean Corpuscular Hemoglobin 32.0 PG Mean Corpuscular Hemoglobin Concent 34.1 % Red Cell Distribution Width 13.8 % Platelet Count 203 TH/MM3 Mean Platelet Volume 9.4 FL Neutrophils (%) (Auto) 75.2 % Lymphocytes (%) (Auto) 14.7 % Monocytes (%) (Auto) 7.3 % Eosinophils (%) (Auto) 2.2 % Basophils (%) (Auto) 0.6 % Neutrophils # (Auto) 5.6 TH/MM3 Lymphocytes # (Auto) 1.1 TH/MM3 Monocytes # (Auto) 0.5 TH/MM3 Eosinophils # (Auto) 0.2 TH/MM3 Basophils # (Auto) 0.0 TH/MM3 CBC Comment DIFF FINAL Differential Comment Blood Urea Nitrogen 30 MG/DL Creatinine 1.38 MG/DL Random Glucose 138 MG/DL Calcium Level 8.9 MG/DL Sodium Level 139 MEQ/L Potassium Level 3.8 MEQ/L Chloride Level 105 MEQ/L Carbon Dioxide Level 26.3 MEQ/L Anion Gap 8 MEQ/L Estimat Glomerular Filtration Rate 49 ML/MIN Physical Exam General General Appearance: Well Developed, No Acute Distress, Comfortable Eyes Eye Exam: Pupils Reactive Ears & Nose Ears & Nose Exam: Nasal Mucosa [place] Throat Throat Exam: Oral Mucosa [place] & Moist Neck Neck Exam: Trachea Midline Pulmonary Resp Exam: Breath Sounds Equal Resp Remarks Occasional crackles Cardiology CV Exam: Irregular, Murmur Gastrointestinal/Abdomen GI Exam: Non-Tender, Bowel Sounds Present Musculoskeletal MS Exam: Normal Tone, Good Strength Integumentary Skin Exam: Warm, Dry Neurologic Neuro Exam: Alert, Awake, Speech Clear, Moving All Extremities, Portrait Painter Equal, No Focal Deficits Neuro Remarks Oriented 2 but forgetful Psychiatric Psych Exam: Appropriate Responses VTE Prophylaxis VTE Prophylaxis Meds: Heparin Assessment/Plan Assessment/Plan Assessment Chest pain, no evidence of acute coronary event Possible heart failure, type unclear, echo pending Poor memory 3.9 cm ascending aorta 3 pulmonary nodules 1.1 cm right adrenal mass Coronary calcification Right hilar lymphadenopathy Retrocardiac density Hiatal hernia Cardiac murmur Management Telemetry Stress test tomorrow Discussed with Cardiology Follow 2-D echocardiogram report Lasix 40 mg IV every 12 hours Fasting lipid profile Follow Renal indices Follow electrolytes and replace as needed Discussed with patient Discussed with nurse April Canada MD Apr 11, 2017 14:22
[2017-04-11] MEDS ORDERED: FUROSEMIDE 40 MG/4 ML VIAL IV PUSH SCH (18:00)
--- NOTE | 2017-04-11 18:39 | ECHRPT ---
Indication: hEART FAILURE CONCLUSIONS The left ventricular systolic function is phcoezlm-ap-jczesiy reduced with an estimated ejection fra ction in the range of 35-40%. Normal left ventricular size. Wall thickness is measured at the upper limits of normal. No regional wall motion abnormalities are present. Aortic valve sclerosis is present. Mild to moderate aortic valve regurgitation. There is mild tricuspid valve regurgitation. The estimated pulmonary arterial pressure is 49.4 mmHg. BP: 185 / 89 HR: 68 Rhythm: Sinus MEASUREMENTS (Male / Female) Normal Values Technical Quality:Good 2D ECHO LV Diastolic Diameter PLAX 4.4 cm 4.2 - 5.9 / 3.9 - 5.3 cm LV Systolic Diameter PLAX 3.8 cm IVS Diastolic Thickness 1.2 cm 0.6 - 1.0 / 0.6 - 0.9 cm LVPW Diastolic Thickness 1.2 cm 0.6 - 1.0 / 0.6 - 0.9 cm LV Relative Wall Thickness 0.5 LVOT Diameter 2.7 cm Aortic Root Diameter 3.8 cm LA Systolic Diameter LX 3.7 cm 3.0 - 4.0 / 2.7 - 3.8 cm DOPPLER AV Peak Velocity 247.0 cm/s AV Peak Gradient 24.4 mmHg AV Mean Gradient 13.0 mmHg AV Velocity Time Integral 52.1 cm AI Peak Velocity 398.0 cm/s AI Peak Gradient 63.4 mmHg AI Pressure Half Time 545.0 ms LVOT Peak Velocity 131.0 cm/s LVOT Peak Gradient 6.9 mmHg LVOT Velocity Time Integral 29.2 cm AV Area Cont Eq vti 3.2 cm AV Area Cont Eq pk 3.0 cm Mitral E Point Velocity 84.4 cm/s Mitral A Point Velocity 92.3 cm/s Mitral E to A Ratio 0.9 LV E' Lateral Velocity 4.3 cm/s Mitral E to LV E' Lateral Ratio 19.7 LV E' Septal Velocity 4.6 cm/s Mitral E to LV E' Septal Ratio 18.4 TR Peak Velocity 314.0 cm/s TR Peak Gradient 39.4 mmHg Right Atrial Pressure 10.0 mmHg Pulmonary Artery Systolic Pressu 49.4 mmHg Right Ventricular Systolic Press 49.4 mmHg PV Peak Velocity 69.9 cm/s PV Peak Gradient 2.0 mmHg FINDINGS LEFT VENTRICLE The left ventricular systolic function is enebaqhq-bh-zvxovmh reduced with an estimated ejection fra ction in the range of 35-40%. Normal left ventricular size. Wall thickness is measured at the upper limits of normal. No regional wall motion abnormalities are present. RIGHT VENTRICLE Normal right ventricular size and systolic function. LEFT ATRIUM The left atrial size is normal. RIGHT ATRIUM The right atrial size is normal. ATRIAL SEPTUM Normal atrial septal thickness without atrial level shunting by limited color doppler interrogation. AORTA The aortic root and proximal ascending aorta are normal in size on limited imaging. MITRAL VALVE Structurally normal mitral valve. No mitral valve stenosis or regurgitation. AORTIC VALVE Trileaflet aortic valve. Aortic valve sclerosis is present. Mild aortic valve regurgitation. TRICUSPID VALVE Structurally normal tricuspid valve. There is mild tricuspid valve regurgitation. The estimated pulmonary arterial pressure is 49.4 mmHg. PULMONARY VALVE No pulmonary valve regurgitation or stenosis. VESSELS The inferior vena cava is normal in size. PERICARDIUM No pericardial effusion. Antonio Pham MD, FACC, [facility] [place] (Electronically Signed) Final Date:11 April 2017 18:37
--- NOTE | 2017-04-11 18:39 | ECHRPT ---
Indication: hEART FAILURE CONCLUSIONS The left ventricular systolic function is zdoxfsvu-yv-znhjxes reduced with an estimated ejection fra ction in the range of 35-40%. Normal left ventricular size. Wall thickness is measured at the upper limits of normal. No regional wall motion abnormalities are present. Aortic valve sclerosis is present. Mild to moderate aortic valve regurgitation. There is mild tricuspid valve regurgitation. The estimated pulmonary arterial pressure is 49.4 mmHg. BP: 185 / 89 HR: 68 Rhythm: Sinus MEASUREMENTS (Male / Female) Normal Values Technical Quality:Good 2D ECHO LV Diastolic Diameter PLAX 4.4 cm 4.2 - 5.9 / 3.9 - 5.3 cm LV Systolic Diameter PLAX 3.8 cm IVS Diastolic Thickness 1.2 cm 0.6 - 1.0 / 0.6 - 0.9 cm LVPW Diastolic Thickness 1.2 cm 0.6 - 1.0 / 0.6 - 0.9 cm LV Relative Wall Thickness 0.5 LVOT Diameter 2.7 cm Aortic Root Diameter 3.8 cm LA Systolic Diameter LX 3.7 cm 3.0 - 4.0 / 2.7 - 3.8 cm DOPPLER AV Peak Velocity 247.0 cm/s AV Peak Gradient 24.4 mmHg AV Mean Gradient 13.0 mmHg AV Velocity Time Integral 52.1 cm AI Peak Velocity 398.0 cm/s AI Peak Gradient 63.4 mmHg AI Pressure Half Time 545.0 ms LVOT Peak Velocity 131.0 cm/s LVOT Peak Gradient 6.9 mmHg LVOT Velocity Time Integral 29.2 cm AV Area Cont Eq vti 3.2 cm AV Area Cont Eq pk 3.0 cm Mitral E Point Velocity 84.4 cm/s Mitral A Point Velocity 92.3 cm/s Mitral E to A Ratio 0.9 LV E' Lateral Velocity 4.3 cm/s Mitral E to LV E' Lateral Ratio 19.7 LV E' Septal Velocity 4.6 cm/s Mitral E to LV E' Septal Ratio 18.4 TR Peak Velocity 314.0 cm/s TR Peak Gradient 39.4 mmHg Right Atrial Pressure 10.0 mmHg Pulmonary Artery Systolic Pressu 49.4 mmHg Right Ventricular Systolic Press 49.4 mmHg PV Peak Velocity 69.9 cm/s PV Peak Gradient 2.0 mmHg FINDINGS LEFT VENTRICLE The left ventricular systolic function is avioquga-er-zibqycb reduced with an estimated ejection fra ction in the range of 35-40%. Normal left ventricular size. Wall thickness is measured at the upper limits of normal. No regional wall motion abnormalities are present. RIGHT VENTRICLE Normal right ventricular size and systolic function. LEFT ATRIUM The left atrial size is normal. RIGHT ATRIUM The right atrial size is normal. ATRIAL SEPTUM Normal atrial septal thickness without atrial level shunting by limited color doppler interrogation. AORTA The aortic root and proximal ascending aorta are normal in size on limited imaging. MITRAL VALVE Structurally normal mitral valve. No mitral valve stenosis or regurgitation. AORTIC VALVE Trileaflet aortic valve. Aortic valve sclerosis is present. Mild aortic valve regurgitation. TRICUSPID VALVE Structurally normal tricuspid valve. There is mild tricuspid valve regurgitation. The estimated pulmonary arterial pressure is 49.4 mmHg. PULMONARY VALVE No pulmonary valve regurgitation or stenosis. VESSELS The inferior vena cava is normal in size. PERICARDIUM No pericardial effusion. Antonio Pham MD, FACC, [facility] (Electronically Signed) Final Date:11 April 2017 18:37
--- NOTE | 2017-04-11 18:39 | ECHRPT ---
Indication: hEART FAILURE CONCLUSIONS The left ventricular systolic function is [id number] reduced with an estimated ejection fra ction in the range of 35-40%. Normal left ventricular size. Wall thickness is measured at the upper limits of normal. No regional wall motion abnormalities are present. Aortic valve sclerosis is present. Mild to moderate aortic valve regurgitation. There is mild tricuspid valve regurgitation. The estimated pulmonary arterial pressure is 49.4 mmHg. BP: 185 / 89 HR: 68 Rhythm: Sinus MEASUREMENTS (Male / Female) Normal Values Technical Quality:Good 2D ECHO LV Diastolic Diameter PLAX 4.4 cm 4.2 - 5.9 / 3.9 - 5.3 cm LV Systolic Diameter PLAX 3.8 cm IVS Diastolic Thickness 1.2 cm 0.6 - 1.0 / 0.6 - 0.9 cm LVPW Diastolic Thickness 1.2 cm 0.6 - 1.0 / 0.6 - 0.9 cm LV Relative Wall Thickness 0.5 LVOT Diameter 2.7 cm Aortic Root Diameter 3.8 cm LA Systolic Diameter LX 3.7 cm 3.0 - 4.0 / 2.7 - 3.8 cm DOPPLER AV Peak Velocity 247.0 cm/s AV Peak Gradient 24.4 mmHg AV Mean Gradient 13.0 mmHg AV Velocity Time Integral 52.1 cm AI Peak Velocity 398.0 cm/s AI Peak Gradient 63.4 mmHg AI Pressure Half Time 545.0 ms LVOT Peak Velocity 131.0 cm/s LVOT Peak Gradient 6.9 mmHg LVOT Velocity Time Integral 29.2 cm AV Area Cont Eq vti 3.2 cm AV Area Cont Eq pk 3.0 cm Mitral E Point Velocity 84.4 cm/s Mitral A Point Velocity 92.3 cm/s Mitral E to A Ratio 0.9 LV E' Lateral Velocity 4.3 cm/s Mitral E to LV E' Lateral Ratio 19.7 LV E' Septal Velocity 4.6 cm/s Mitral E to LV E' Septal Ratio 18.4 TR Peak Velocity 314.0 cm/s TR Peak Gradient 39.4 mmHg Right Atrial Pressure 10.0 mmHg Pulmonary Artery Systolic Pressu 49.4 mmHg Right Ventricular Systolic Press 49.4 mmHg PV Peak Velocity 69.9 cm/s PV Peak Gradient 2.0 mmHg FINDINGS LEFT VENTRICLE The left ventricular systolic function is uriokwxx-nu-hfofmsq reduced with an estimated ejection fra ction in the range of 35-40%. Normal left ventricular size. Wall thickness is measured at the upper limits of normal. No regional wall motion abnormalities are present. RIGHT VENTRICLE Normal right ventricular size and systolic function. LEFT ATRIUM The left atrial size is normal. RIGHT ATRIUM The right atrial size is normal. ATRIAL SEPTUM Normal atrial septal thickness without atrial level shunting by limited color doppler interrogation. AORTA The aortic root and proximal ascending aorta are normal in size on limited imaging. MITRAL VALVE Structurally normal mitral valve. No mitral valve stenosis or regurgitation. AORTIC VALVE Trileaflet aortic valve. Aortic valve sclerosis is present. Mild aortic valve regurgitation. TRICUSPID VALVE Structurally normal tricuspid valve. There is mild tricuspid valve regurgitation. The estimated pulmonary arterial pressure is 49.4 mmHg. PULMONARY VALVE No pulmonary valve regurgitation or stenosis. VESSELS The inferior vena cava is normal in size. PERICARDIUM No pericardial effusion. Antonio Pham MD, FACC, [facility] [place] (Electronically Signed) Final Date:11 April 2017 18:37
[2017-04-12] VITALS (8 sets, daily range): BP systolic 91–154; BP diastolic 53–72; PULSE 53–73; RESP 17–21; TEMP 97.7–98.5; O2SAT 95–100
[2017-04-12] MEDS: LEVOTHYROXINE SODIUM 100 MCG TAB PO SCH (05:41)
[2017-04-12] MEDS: CARBIDOPA/LEVODOPA 25 MG/100 MG TAB PO SCH ×5 (05:41→21:12)
--- NOTE | 2017-04-12 08:15 | HHI.PR ---
Subjective History of Present Illness Patient is seen and examined/chart reviewed Labs and images reviewed Resting in bed/feels well Denies chest pain No shortness of breath No Cough or sputum production No Fever or chills No nausea or vomiting Good appetite Offers no other complaint Vitals/Results Vital Signs Vital Signs Date Time Temp Pulse Resp B/P (MAP) Pulse Ox O2 Delivery O2 Flow Rate FiO2 04/12/17 07:58 98.5 60 20 116/61 (79) 95 04/12/17 03:45 65 04/12/17 03:38 98.4 57 17 135/72 (93) 100 04/12/17 00:23 98.5 54 17 138/61 (86) 97 04/12/17 00:00 58 04/11/17 22:07 65 152/70 (97) 04/11/17 20:31 98.8 63 17 137/60 (85) 100 04/11/17 20:00 66 04/11/17 16:19 98.0 59 16 129/58 (81) 99 04/11/17 15:04 64 04/11/17 12:22 97.6 51 16 128/60 (82) 99 04/11/17 08:43 98.6 57 16 125/60 (81) 98 04/11/17 08:27 97.9 54 16 103/55 (71) 97 CBC/BMP: 04/11/17 0956 04/11/17 0956 Lab Results Laboratory Tests Test 04/11/17 09:56 04/12/17 07:30 White Blood Count 7.4 TH/MM3 Red Blood Count 4.36 MIL/MM3 Hemoglobin 14.0 GM/DL Hematocrit 41.0 % Mean Corpuscular Volume 93.9 FL Mean Corpuscular Hemoglobin 32.0 PG Mean Corpuscular Hemoglobin Concent 34.1 % Red Cell Distribution Width 13.8 % Platelet Count 203 TH/MM3 Mean Platelet Volume 9.4 FL Neutrophils (%) (Auto) 75.2 % Lymphocytes (%) (Auto) 14.7 % Monocytes (%) (Auto) 7.3 % Eosinophils (%) (Auto) 2.2 % Basophils (%) (Auto) 0.6 % Neutrophils # (Auto) 5.6 TH/MM3 Lymphocytes # (Auto) 1.1 TH/MM3 Monocytes # (Auto) 0.5 TH/MM3 Eosinophils # (Auto) 0.2 TH/MM3 Basophils # (Auto) 0.0 TH/MM3 CBC Comment DIFF FINAL Differential Comment Blood Urea Nitrogen 30 MG/DL Creatinine 1.38 MG/DL Random Glucose 138 MG/DL Calcium Level 8.9 MG/DL Sodium Level 139 MEQ/L Potassium Level 3.8 MEQ/L Chloride Level 105 MEQ/L Carbon Dioxide Level 26.3 MEQ/L Anion Gap 8 MEQ/L Estimat Glomerular Filtration Rate 49 ML/MIN Physical Exam General General Appearance: Well Developed, No Acute Distress, Comfortable Appearance Remarks Elderly male, NAD Eyes Eye Exam: Pupils Reactive, Sclera White Ears & Nose Ears & Nose Exam: Nasal Mucosa [place] Throat Throat Exam: Oral Mucosa [place] & Moist Neck Neck Exam: Neck Supple, Trachea Midline Pulmonary Resp Exam: Clear Bilaterally, Breath Sounds Equal Cardiology CV Exam: Irregular, Murmur Gastrointestinal/Abdomen GI Exam: Non-Tender, Bowel Sounds Present Musculoskeletal MS Exam: Normal Tone, Good Strength Integumentary Skin Exam: Warm, Dry Neurologic Neuro Exam: Alert, Awake, Speech Clear, Moving All Extremities, No Focal Deficits Neuro Remarks Mild tremors/hard of hearing, no significant rigidity noted Psychiatric Psych Exam: Appropriate Responses VTE Prophylaxis VTE Prophylaxis Meds: Heparin Assessment/Plan Assessment/Plan Assessment Chest pain, no evidence of acute coronary syndrome Congestive heart failure, acute systolic 3.9 cm ascending aorta 3 pulmonary nodules ? Significance Right hilar adenopathy 1.1 cm right adrenal mass, incidental finding ? Adenoma Coronary calcification Hiatal hernia Cardiac murmur due to aortic regurgitation Hypertension CKD stage III Parkinsonism Dementia Degenerative joint disease Management Telemetry Oxygen Fluid restriction Continue Lasix, CHF is fully compensated at this time Beta anirudh Continue angiotensin receptor anirudh Continue Aldactone Follow up renal function slightly elevated due to overdiuresis Follow 2-D echocardiogram Decreased LV function, 35% Mild to moderate AR Aortic sclerosis For stress test Add low-dose statin Fasting lipid profile Continue Sinemet Follow electrolytes and replace as needed Patient ambulated outside of the room with a rolling walker short distance independently Discussed with patient, explained him his condition answered all his questions He verbalizes understanding. I also called and spoke with patient's daughter over the phone, discussed finding and the details Answered all of her questions also. If patient passed stress test will DC him home with home health care. He has a friend, who is a OPEN HEAR[employer] WORKER taking care of him on daily basis, his daughter also assist in his care. Patient may need long-term placement in near future Consider repeating CT chest in 6-9 months by PCP, the patient is frail and elderly and it but also be okay to not pursueit, If patient and his daughter desire. Discussed with nursing home social worker See Robert De La Torre MD Apr 12, 2017 08:15
[2017-04-12 08:34] LABS: AUTOMATED NEUTROPHIL # 5.3 TH/MM3 (1.8-7.7); BASOPHIL % 0.7 % (0.0-2.0); EOSINOPHIL # 0.2 TH/MM3 (0-0.4); EOSINOPHIL % 2.9 % (0.0-4.0); HEMATOCRIT 43.5 % (39.0-51.0); LYMPH % 17.2 % (9.0-44.0); LYMPHOCYTE # 1.3 TH/MM3 (1.0-4.8); MEAN CELL VOLUME 93.6 FL (80.0-100.0); MEAN CORPUSCULAR HEMOGLOBIN 32.2 PG (27.0-34.0); MEAN CORPUSCULAR HGB CONC 34.5 % (32.0-36.0); MEAN PLATELET VOLUME 9.3 FL (7.0-11.0); MONO % 8.6 % (0.0-8.0); MONOCYTE # 0.6 TH/MM3 (0-0.9); NEUT % 70.6 % (16.0-70.0); PLATELET COUNT 212 TH/MM3 (150-450); RED BLOOD COUNT 4.65 MIL/MM3 (4.50-5.90); RED CELL DISTRIBUTION WIDTH 13.9 % (11.6-17.2); WHITE BLOOD COUNT 7.5 TH/MM3 (4.0-11.0)
[2017-04-12 08:51] LABS: BICARBONATE 25.6 MEQ/L (21.0-32.0); CALCIUM 9.1 MG/DL (8.5-10.1); CREATININE 1.48 MG/DL (0.60-1.30); MAGNESIUM 2.2 MG/DL (1.5-2.5)
--- NOTE | 2017-04-12 08:57 | HHI.FF ---
Face to Face Verification Diagnosis: (1) Parkinson disease (2) Impaired mobility and activities of daily living (3) Hypertension (4) CHF (congestive heart failure) (5) SOB (shortness of breath) on exertion (6) Acquired spondylolisthesis (7) Osteoarthritis of right glenohumeral joint Physical Therapy Order: Evaluate and Treat, Improve ambulation, Strength and gait training Occupational Therapy Order: Evaluate and Treat, Gross motor coordination, Fine motor coordination Home Health Nursing Order: Medical education Signs/symptoms of disease process CHF education I have seen patient Bishop Franki Ayala on 04/12/17. My clinical findings support the need for the requested home health care services because: Ltd mobility - disease progression Patient has SOB Deconditioned w/ increased weakness Limited ability to care for self High risk of falls I certify that my clinical findings support that this patient is homebound because: Impaired cognitive ability/safety Unsafe to leave home unassisted Robert Rahman MD Apr 12, 2017 08:57
[2017-04-12] MEDS: NEBIVOLOL 10 MG TAB PO SCH ×2 (09:19→20:33)
[2017-04-12] MEDS: VALSARTAN 160 MG TAB PO SCH (09:19)
[2017-04-12] MEDS: SPIRONOLACTONE 25 MG TAB PO SCH ×2 (09:19→18:52)
[2017-04-12] MEDS: ASPIRIN 81 MG CHEW TAB CHEW SCH (09:20)
[2017-04-12] MEDS: DOCUSATE SODIUM 50 MG/SENNA 8.6 MG TAB PO SCH ×2 (09:20→20:33)
[2017-04-12] MEDS: SODIUM CHLORIDE 0.9% FLUSH 10 ML FLUSH IV FLUSH SCH ×2 (09:21→20:37)
[2017-04-12] MEDS ORDERED: PRAV10TA PO (11:08)
[2017-04-12] MEDS ORDERED: ASPI81CH25 CHEW (11:08)
[2017-04-12] MEDS ORDERED: REGADENOSON INJ 0.4 MG/5 ML SYR ONE (12:46)
--- NOTE | 2017-04-12 15:10 | RADRPT ---
EXAM DATE/TIME: 04/12/2017 12:18 [place] COMPARISON: No previous studies available for comparison. INDICATIONS : Chest pain for 1 day. Angina. Congestive heart failure. DOSE: 25.5 mCi Tc99m Myoview at stress. 8.5 mCi Tc99m Myoview at rest. 0.4 mg Lexiscan STRESS SYMPTOMS: None. EJECTION FRACTION: 52% MEDICAL HISTORY : Parkinson's. Hypertension. Hypothyroidism. Skin cancer. SURGICAL HISTORY : Back and hip surgery. ENCOUNTER: Initial ACUITY: 1 day PAIN SCALE: 4/10 LOCATION: Bilateral chest TECHNIQUE: The patient underwent pharmacologic stress with infusion of prescribed dose. Continuous ECG tracing was monitored during stress. Gated SPECT imaging was performed after stress and conventional SPECT i maging was performed at rest. The examination was performed on a SPECT/CT scanner, both attenuation and non-corrected datasets were reviewed. FINDINGS: DISTRIBUTION: The maximum perfused segment at stress is in the septal wall. There is attenuation artifact in the f ar lateral wall which appears different when reviewing the raw data between the stress and rest image s. The differential attenuation defects to create a apparent decrease in activity in the basal later al wall on stress images. PERFUSION STUDY: There is 50% decrease in activity in the posterior basal segment which demonstrates redistribution on the resting injection scan. This change in relative activity is also discernible on review of the r aw data images. Uptake throughout the remainder of the left ventricle is within normal limits withou t evidence of redistribution when taking into account attenuation effects. Summed stress score is 5 in the posterior basal region. GATED STUDY: There is intact wall motion and thickening without hypokinetic or dyskinetic segments. CONCLUSION: 1. Evidence of stress-induced ischemia involving the posterior basal wall with a small size, moderate severity reversible perfusion defects. 2. Intact wall motion with 50% ejection fraction. RISK CATEGORY: Intermediate (1-3% Annual Mortality Rate) Efrain Lay MD on April 12, 2017 at 14:51 Board Certified Radiologist. This report was verified electronically.
[2017-04-12] MEDS: HEPARIN SODIUM - SQ 10,000 UNITS/ML VIAL SQ SCH ×2 (15:37→22:43)
--- NOTE | 2017-04-12 17:41 | HHI.DS ---
Discharge Summary Admission Date Apr 10, 2017 at 10:09 Discharge Date: Apr 12, 2017 Admitting Diagnosis Chest Pain; CHF (1) Chest pain ICD Codes: R07.9 - Chest pain, unspecified Status: Acute (2) Parkinson disease ICD Codes: G20 - Parkinson's disease Status: Chronic (3) Hypertension ICD Codes: I10 - Hypertension Status: Chronic (4) BPH (benign prostatic hyperplasia) ICD Codes: N40.0 - Benign prostatic hyperplasia Status: Chronic (5) Hypothyroid ICD Codes: E03.9 - Hypothyroid Status: Chronic (6) Cardiomyopathy ICD Codes: I42.9 - Cardiomyopathy, unspecified Status: Chronic (7) CHF (congestive heart failure) ICD Codes: I50.9 - Heart failure, unspecified Status: Acute Brief History CBC/BMP: 04/12/17 0730 04/12/17 0730 Significant Findings Laboratory Tests Test 04/10/17 03:45 04/10/17 05:34 04/10/17 11:30 04/10/17 18:56 Red Blood Count 4.32 MIL/MM3 (4.50-5.90) Neutrophils (%) (Auto) 70.9 % (16.0-70.0) Monocytes (%) (Auto) 9.4 % (0.0-8.0) B-Type Natriuretic Peptide 360 PG/ML (0-100) Blood Urea Nitrogen 31 MG/DL (7-18) Alanine Aminotransferase (ALT/SGPT) 9 U/L (12-78) Estimat Glomerular Filtration Rate 59 ML/MIN (>89) Creatine Kinase MB 4.2 NG/ML (0.5-3.6) Test 04/11/17 09:56 04/12/17 07:30 Red Blood Count 4.36 MIL/MM3 (4.50-5.90) Neutrophils (%) (Auto) 75.2 % (16.0-70.0) 70.6 % (16.0-70.0) Blood Urea Nitrogen 30 MG/DL (7-18) 33 MG/DL (7-18) Creatinine 1.38 MG/DL (0.60-1.30) 1.48 MG/DL (0.60-1.30) Random Glucose 138 MG/DL (74-106) Estimat Glomerular Filtration Rate 49 ML/MIN (>89) 45 ML/MIN (>89) Monocytes (%) (Auto) 8.6 % (0.0-8.0) Imaging Last Impressions Myocardial Perfusion Scan Nuc Med 04/12/17 0000 Signed Impressions: Service Date/Time: Wednesday, April 12, 2017 12:18 - CONCLUSION: 1. Evidence of stress-induced ischemia involving the posterior basal wall with a small size , moderate severity reversible perfusion defects. 2. Intact wall motion with 50% % ejection fraction. RISK CATEGORY: Intermediate (1-3%% Annual Mortality Rate) Efrain Lay MD Aorta CTA 04/10/17 0620 Signed Impressions: Service Date/Time: Monday, April 10, 2017 08:28 - CONCLUSION: 1. Ectatic ascending thoracic aorta measuring up to 3.9 cm. Otherwise, no evidence for aortic dissection or aneurysm. Abnormality on radiograph corresponds to large hiatal hernia. 2. Mild intralobular septal thickening and patchy groundglass opacities which may reflect mild positive fluid balance. 3. At least 3 distinct pulmonary nodules measuring up to 6 mm. Followup examination may be performed in 12 months particularly if patient is high risk, per 2017 Fleischner criteria. 4. 1.1 cm right adrenal mass. This is not fully characterized due to single phase contrast examination. Further characterization may be performed with noncontrast CT or adrenal mass protocol CT/MRI exam if clinically warranted. 5. Dense coronary artery calcifications. 6. Nonspecific minimal right hilar adenopathy. Enmanuel Samson MD Chest X-Ray 04/10/17 0334 Signed Impressions: Service Date/Time: Monday, April 10, 2017 03:40 - CONCLUSION: 1. Reticular nodular interstitial densities in the upper lobes. 2. Cardiomegaly and retrocardiac density. This could represent hiatal hernia but descending thoracic aortic aneurysm cannot be excluded. Contrasted CT chest recommended. Robbi Lobato MD Hospital Course This is a very pleasant 86-year-old gentleman who unfortunately is a very poor historian secondary to poor memory. He was brought into the emergency department at [facility] In the early hours of 04/10/17 with chest pain and difficulty breathing. This apparently has been going on for 2 weeks. It became worse the day prior to the admission. The pain is sharp in character, substernal in location, 6/10 in intensity, radiated to the left upper extremity. The patient was seen by the undersigned in room 91 in the H Pod at the emergency department. He was alert oriented but having serious problems with recent events. He denied any syncope, no diaphoresis, he does have some swelling in the ankles, he also has been progressively less able to perform his activities of daily living because of exertional dyspnea. Chronic cough because of reflux disease. No fever. Pt. evaluated in the ED. Trop negative. Pt. was admitted for: Chest pain, no evidence of acute coronary syndrome Congestive heart failure, acute systolic 3.9 cm ascending aorta 3 pulmonary nodules ? Significance Right hilar adenopathy 1.1 cm right adrenal mass, incidental finding ? Adenoma Coronary calcification Hiatal hernia Cardiac murmur due to aortic regurgitation Hypertension CKD stage III Parkinsonism Dementia Degenerative joint disease During the course of the hospitalization, the following took place: Pt. admitted, serial trop ordered. Put on Telemetry Put on Oxygen and Fluid restriction Continue Lasix, CHF was fully compensated at this time Beta anirudh and angiotensin receptor anirudh continued Continued Aldactone Follow up renal function slightly elevated due to overdiuresis Follow 2-D echocardiogram -Decreased LV function, 35%/Mild to moderate AR/ Aortic sclerosis cardiology recommended STT. Completed, with results as noted above. Added low-dose statin Fasting lipid profile done Continued Sinemet Followed electrolytes and replace as needed Patient ambulated outside of the room with a rolling walker short distance independently Discussed with patient, explained him his condition answered all his questions He verbalizes understanding. Attending also called and spoke with patient's daughter over the phone, discussed finding and the details Answered all of her questions also. Pt. had a friend, who was a STEAMING MACHINE OPERATOR taking care of him on daily basis, his daughter also assisted in his care. Patient may need long-term placement in near future Consider repeating CT chest in 6-9 months by PCP, the patient is frail and elderly and it but also be okay to not pursuit If patient and his daughter desire. CM consult for [facility] Pt. stable, no cp Discharged home in stable condition F/U cardiology Diet-heart healthy Activity-as tolerated Pt Condition on Discharge: Stable Discharge Disposition: Disch w/ Home Health Serv Discharge Instructions DIET: Follow Instructions for: Heart Healthy Diet Fluid Restrictions: 1500cc/d Activities you can perform: Weight Bearing as Rigoberto Other Activity Instructions: Fall precautions Follow up Referrals: Cardiology - 2 Weeks PCP Follow-up - 1 Week New Medications: Pravastatin (Pravastatin) 10 Mg Tab 10 MG PO DAILY for Cholesterol Management, #30 TAB 0 Refills Aspirin (Aspirin Low Strength) 81 Mg Chew 81 MG CHEW DAILY for blood thinner for 30 Days, #30 EA Spironolactone (Aldactone) 25 Mg Tab 25 MG PO BID@09,18 for CHF for 30 Days, #60 TAB Continued Medications: Carbidopa-Levodopa (Sinemet) 25-100 Mg Tab 1 TAB PO 5 TIMES A DAY for Parkinson Disease Mgmt, #90 TAB 0 Refills Levothyroxine (Synthroid) 100 Mcg Tab 100 MCG PO DAILY for Thyroid, #30 TAB 0 Refills Nebivolol (Bystolic) 10 Mg Tab 10 MG PO BID for Blood Pressure Management, #30 TAB 0 Refills Valsartan (Diovan) 320 Mg Tab 320 MG PO DAILY, #30 TAB 0 Refills Narda Brandon Apr 12, 2017 17:41
--- NOTE | 2017-04-12 22:49 | PD.CARD.PN ---
Subjective Subjective Remarks Patient seen around 6pm No events overnight No chest pain SOB is much better Objective Medications Current Medications Medications (Trade) Dose Ordered Sig/Ariel Route Start Time Stop Time Status Last Admin (NS Flush) 2 ml UNSCH PRN IV FLUSH 04/10/17 10:15 (NS Flush) 2 ml BID IV FLUSH 04/10/17 21:00 04/12/17 20:37 (Zofran Inj) 4 mg Q6H PRN IVP 04/10/17 10:15 (Heparin Inj) 5,000 units Q12H SQ 04/10/17 11:00 04/12/17 22:43 (Narcan Inj) 0.4 mg UNSCH PRN IV PUSH 04/10/17 10:15 (Taylor-Colace) 1 tab BID PO 04/10/17 21:00 04/12/17 20:33 (Milk Of Magnesia Liq) 30 ml Q12H PRN PO 04/10/17 10:15 (Dulcolax Supp) 10 mg DAILY PRN RECTAL 04/10/17 10:15 (Apresoline) 50 mg Q4H PRN PO 04/10/17 10:15 04/11/17 05:52 (Aldactone) 25 mg BID@09,18 PO 04/10/17 18:00 04/12/17 18:52 (Aspirin Chew) 81 mg DAILY CHEW 04/11/17 09:00 04/12/17 09:20 (Synthroid) 100 mcg DAILY@0600 PO 04/10/17 17:00 04/12/17 05:41 (Bystolic) 10 mg BID PO 04/10/17 21:00 04/12/17 20:33 (Diovan) 320 mg DAILY PO 04/10/17 16:30 04/12/17 09:19 (Sinemet 25-100 Mg) 2 tab BID@1630,2100 PO 04/10/17 16:30 04/12/17 21:12 (Sinemet 25-100 Mg) 1 tab DAILY@0600 PO 04/11/17 06:00 04/12/17 05:41 (Sinemet 25-100 Mg) 3 tab BID@0930,1300 PO 04/11/17 09:30 04/12/17 09:20 Vital Signs / I&O Vital Signs Date Time Temp Pulse Resp B/P (MAP) Pulse Ox O2 Delivery O2 Flow Rate FiO2 04/12/17 21:15 97.9 67 18 126/58 (80) 99 04/12/17 16:14 97.7 73 21 154/67 (96) 98 04/12/17 11:23 97.7 53 20 91/53 (66) 95 04/12/17 07:58 98.5 60 20 116/61 (79) 95 04/12/17 03:45 65 04/12/17 03:38 98.4 57 17 135/72 (93) 100 04/12/17 00:23 98.5 54 17 138/61 (86) 97 04/12/17 00:00 58 I/O 04/11/17 04/11/17 04/11/17 04/12/17 04/12/17 04/12/17 07:00 15:00 23:00 07:00 15:00 23:00 Intake Total 240 ml Output Total 100 ml Balance 240 ml -100 ml Intake Oral 240 ml Output Urine Total 100 ml Physical Exam GENERAL: NAD, AAOx3 SKIN: Warm and dry. HEAD: Atraumatic. Normocephalic. EYES: Pupils equal and round. No scleral icterus. No injection or drainage. ENT: No nasal bleeding or discharge. Mucous membranes pink and moist. NECK: Trachea midline. No JVD. CARDIOVASCULAR: Regular rate and rhythm. RESPIRATORY: No accessory muscle use. Clear to auscultation. Breath sounds equal bilaterally. GASTROINTESTINAL: Abdomen soft, non-tender, nondistended. Hepatic and splenic margins not palpable. MUSCULOSKELETAL: Extremities without clubbing, cyanosis, or edema. No obvious deformities. NEUROLOGICAL: Awake and alert. No obvious cranial nerve deficits. Motor grossly within normal limits. Five out of 5 muscle strength in the arms and legs. Normal speech. PSYCHIATRIC: Appropriate mood and affect; insight and judgment normal. Laboratory Laboratory Tests Test 04/12/17 07:30 White Blood Count 7.5 TH/MM3 Red Blood Count 4.65 MIL/MM3 Hemoglobin 15.0 GM/DL Hematocrit 43.5 % Mean Corpuscular Volume 93.6 FL Mean Corpuscular Hemoglobin 32.2 PG Mean Corpuscular Hemoglobin Concent 34.5 % Red Cell Distribution Width 13.9 % Platelet Count 212 TH/MM3 Mean Platelet Volume 9.3 FL Neutrophils (%) (Auto) 70.6 % Lymphocytes (%) (Auto) 17.2 % Monocytes (%) (Auto) 8.6 % Eosinophils (%) (Auto) 2.9 % Basophils (%) (Auto) 0.7 % Neutrophils # (Auto) 5.3 TH/MM3 Lymphocytes # (Auto) 1.3 TH/MM3 Monocytes # (Auto) 0.6 TH/MM3 Eosinophils # (Auto) 0.2 TH/MM3 Basophils # (Auto) 0.0 TH/MM3 CBC Comment DIFF FINAL Differential Comment Blood Urea Nitrogen 33 MG/DL Creatinine 1.48 MG/DL Random Glucose 102 MG/DL Calcium Level 9.1 MG/DL Magnesium Level 2.2 MG/DL Sodium Level 138 MEQ/L Potassium Level 4.1 MEQ/L Chloride Level 104 MEQ/L Carbon Dioxide Level 25.6 MEQ/L Anion Gap 8 MEQ/L Estimat Glomerular Filtration Rate 45 ML/MIN Imaging Last 24 hours Impressions Myocardial Perfusion Scan Nuc Med 04/12/17 0000 Signed Impressions: Service Date/Time: Wednesday, April 12, 2017 12:18 - CONCLUSION: 1. Evidence of stress-induced ischemia involving the posterior basal wall with a small size , moderate severity reversible perfusion defects. 2. Intact wall motion with 50% % ejection fraction. RISK CATEGORY: Intermediate (1-3%% Annual Mortality Rate) Efrain Lay MD Assessment and Plan Problem List: (1) CHF (congestive heart failure) ICD Codes: I50.9 - Heart failure, unspecified Status: Acute (2) SOB (shortness of breath) on exertion ICD Codes: R06.02 - Shortness of breath (3) Chest pain ICD Codes: R07.9 - Chest pain, unspecified Status: Acute Assessment and Plan 1) Acute CHF Appears better compensated New onset systolic heart failure, EF 35-40%, mild to moderate AR Unable to tolerate metoprolol/Coreg due to heart rates in the 50-60s Con't Bystolic Con't Diovan, started on spirolactone Discussed salt intake and watching his weight 2) Atypical chest pain Abnormal stress test Discussed with the patient and his daughter, offered cardiac catheterization, at his age they would like to continue on medical management ASA/Statin therapy 3) Plan for discharge in the morning Dimitri Lion DO Apr 12, 2017 22:48
[2017-04-13 00:09] VITALS: BP 118/55; PULSE 70; RESP 15; TEMP 98; O2SAT 94
[2017-04-13 04:03] VITALS: BP 136/63; PULSE 63; RESP 17; TEMP 98.4; O2SAT 95
[2017-04-13] MEDS: LEVOTHYROXINE SODIUM 100 MCG TAB PO SCH (05:55)
[2017-04-13] MEDS: CARBIDOPA/LEVODOPA 25 MG/100 MG TAB PO SCH ×2 (05:55→10:13)
[2017-04-13 06:11] VITALS: PULSE 62
[2017-04-13 07:40] LABS: CALCIUM 8.9 MG/DL (8.5-10.1); CREATININE 1.6 MG/DL (0.60-1.30)
[2017-04-13 07:56] VITALS: BP 131/74; PULSE 57; RESP 24; TEMP 98.6; O2SAT 97
--- NOTE | 2017-04-13 08:27 | HHI.PR ---
Subjective History of Present Illness Patient had positive stress test yesterday Discharge was withheld Architectural Design Lecturer came and spoke with him late at night , offered him heart cardiac catheterization Patient refused cardiac catheterization Sitting up in bed all dressed up/ready to go home I should note stated last night I'm fine No chest pain or shortness of breath No Cough or sputum production No Fever or chills No nausea or vomiting Good appetite Offers no other complaint Vitals/Results Intake & Output 04/13/17 04/13/17 04/14/17 15:00 23:00 07:00 Output Total 200 ml Balance -200 ml Output Urine Total 200 ml Vital Signs Vital Signs Date Time Temp Pulse Resp B/P (MAP) Pulse Ox O2 Delivery O2 Flow Rate FiO2 04/13/17 07:56 98.6 57 24 131/74 (93) 97 04/13/17 06:11 62 04/13/17 04:03 98.4 63 17 136/63 (87) 95 04/13/17 00:09 98.0 70 15 118/55 (76) 94 04/12/17 21:15 97.9 67 18 126/58 (80) 99 04/12/17 16:14 97.7 73 21 154/67 (96) 98 04/12/17 11:23 97.7 53 20 91/53 (66) 95 CBC/BMP: 04/12/17 0730 04/13/17 0610 Lab Results Laboratory Tests Test 04/13/17 06:10 Blood Urea Nitrogen 43 MG/DL Creatinine 1.60 MG/DL Random Glucose 76 MG/DL Calcium Level 8.9 MG/DL Sodium Level 134 MEQ/L Potassium Level 4.7 MEQ/L Chloride Level 106 MEQ/L Carbon Dioxide Level 17.0 MEQ/L Anion Gap 11 MEQ/L Estimat Glomerular Filtration Rate 41 ML/MIN Physical Exam General General Appearance: Well Developed, No Acute Distress, Comfortable Appearance Remarks Elderly male, NAD Eyes Eye Exam: Pupils Reactive, Sclera White Ears & Nose Ears & Nose Exam: Nasal Mucosa Kittrell Throat Throat Exam: Oral Mucosa Kittrell & Moist Neck Neck Exam: Neck Supple, Trachea Midline Pulmonary Resp Exam: Clear Bilaterally, Breath Sounds Equal Cardiology CV Exam: Irregular, Murmur Gastrointestinal/Abdomen GI Exam: Non-Tender, Bowel Sounds Present Musculoskeletal MS Exam: Normal Tone, Good Strength Integumentary Skin Exam: Warm, Dry Neurologic Neuro Exam: Alert, Awake, Speech Clear, Moving All Extremities, No Focal Deficits Neuro Remarks Mild tremors/hard of hearing, no significant rigidity noted Psychiatric Psych Exam: Appropriate Responses VTE Prophylaxis VTE Prophylaxis Meds: Heparin Assessment/Plan Assessment/Plan Assessment s/p Chest pain, possible angina s/p acute Congestive heart failure, acute systolic, stable Positive stress test/suspect underlying coronary artery disease Mild AI 3.9 cm ascending aorta 3 pulmonary nodules ? Significance Right hilar adenopathy 1.1 cm right adrenal mass, incidental finding ? Adenoma Hiatal hernia Hypertension CKD stage III Parkinsonism Dementia Degenerative joint disease Management Telemetry Fluid restriction Discontinue Lasix, CHF is fully compensated at this time Beta anirudh Continue angiotensin receptor anirudh Continue Aldactone ASA statin Follow up renal function slightly elevated due to overdiuresis Follow 2-D echocardiogram Decreased LV function, 35% Mild to moderate AR Aortic sclerosis Cardiology input appreciated/patient refused cardiac intervention , risk and benefits explained to the patient He said "I am 86 years old and I am going to some day". Continue Sinemet Creatinine slightly higher, encourage by mouth fluids and food days Recommend repeat BMP in 1 week by PCP. She is refusing to stay in the hospital, adamant about going home today Patient may need long-term placement in near future Consider repeating CT chest in 6-9 months by PCP, the patient is frail and elderly and it but also be okay to not pursue it, If patient and his daughter desire. Discussed with social media project manager See Robert De La Torre MD Apr 13, 2017 08:27
[2017-04-13] MEDS ORDERED: SPIR25 PO (08:32)
[2017-04-13] MEDS: DOCUSATE SODIUM 50 MG/SENNA 8.6 MG TAB PO SCH (09:00)
[2017-04-13] MEDS: SPIRONOLACTONE 25 MG TAB PO SCH (10:12)
[2017-04-13] MEDS: SODIUM CHLORIDE 0.9% FLUSH 10 ML FLUSH IV FLUSH SCH (10:14)
[2017-04-13] MEDS: NEBIVOLOL 10 MG TAB PO SCH (10:14)
[2017-04-13] MEDS: VALSARTAN 160 MG TAB PO SCH (10:14)
[2017-04-13] MEDS: ASPIRIN 81 MG CHEW TAB CHEW SCH (10:14)
== END 2017-04-13 12:29 | disposition home or self-care (01) ==
LOC: NEPC 03:25 → NEDA 10:09 → NEPHCDU 11:53
PROVIDERS: ADMIT Specialist; ATTEND Specialist
DX: I50.21 Acute systolic (congestive) heart failure (principal); I13.0 Hypertensive heart and chronic kidney disease with heart failure and stage 1 through stage 4 chronic kidney disease, or unspecified chronic kidney disease; N18.3 Chronic kidney disease, stage 3 (moderate); E03.9 Hypothyroidism, unspecified; N40.0 Benign prostatic hyperplasia without lower urinary tract symptoms; G20 Parkinson's disease; I49.3 Ventricular premature depolarization; K21.9 Gastro-esophageal reflux disease without esophagitis; M19.011 Primary osteoarthritis, right shoulder; I42.9 Cardiomyopathy, unspecified; Z87.891 Personal history of nicotine dependence; Z85.828 Personal history of other malignant neoplasm of skin; Z79.899 Other long term (current) drug therapy; R07.89 Other chest pain; F03.90 Unspecified dementia, unspecified severity, without behavioral disturbance, psychotic disturbance, mood disturbance, and anxiety; E27.8 Other specified disorders of adrenal gland; K44.9 Diaphragmatic hernia without obstruction or gangrene; R91.8 Other nonspecific abnormal finding of lung field
CPT/HCPCS: 71010; 71275; 74174; 78452; 80048; 80053; 82550; 82552; 83690; 83735; 83880; 84484; 85025; 85610; 85730; 93005; 93017; 93306; 96372; 96374; 96375; 96376; 99285; A9502; G0378; J1644; J1940; J2785; Q9967

== ENCOUNTER 2017-05-01 20:03 | Inpatient (IN) | payer MEDICARE, OTHER ==
[2017-05-01] VITALS (8 sets, daily range): BP systolic 125–204; BP diastolic 64–111; PULSE 59–77; RESP 16–20; TEMP 98.2–98.6; O2SAT 94–100
[~2017-05-01] VITALS: Ht 165.1 cm; Wt 60.4 kg
[~2017-05-01 20:03] MED LIST changes: +ASPI81CH25 CHEW; -BISA5TAB5 PO; -CALC250 PO; -DEXI60CA3 PO; -FISHCAP; -HYDR-3580 PO; +PRAV10TA PO; -SINE25100 PO; +SINE25TA PO; +SPIR25 PO; -TAB-TAB PO; -WALKER ROLLING; -WHEELCHAIR RENTAL RA
[2017-05-01] MEDS ORDERED: SODIUM CHLORIDE 0.9% FLUSH 10 ML FLUSH IVF PRN (20:15)
--- NOTE | 2017-05-01 20:37 | PD ---
HPI Chief Complaint: Chest Pain Time Seen by Provider: 20:14 Travel History International Travel<30 days: No Contact w/Intl Traveler<30days: No Traveled to known affect area: No History of Present Illness HPI Patient is an 86-year-old male presenting to emergency for evaluation of chest pain. Chest pain started approximately 10 minutes prior to arrival. Patient was at home and took one nitroglycerin sublingually. Pain resolved after that. Patient states that he gets chest pain when he exerts himself, and is accompanied with shortness of breath. It resolves when he rests. He states that he saw his chicken and fish butcher Dr. Lion today and is scheduled for cardiac catheterization on Monday. Patient had a stress test last week. He states the pain is midsternal with radiation to the left anterior chest wall and shoulder. He currently denies any pain. He further denies any shortness of breath, headache, abdominal pain, dizziness, visual changes. PFSH Past Medical History Arthritis: Yes Asthma: No Blood Disorders: No Heart Rhythm Problems: No Cancer: Yes (SKIN CA) Cardiovascular Problems: Yes (angina) High Cholesterol: No Chest Pain: No Congestive Heart Failure: Yes COPD: Yes Cerebrovascular Accident: No Diabetes: No Diminished Hearing: Yes (BILAT HEARING AIDS) GERD: Yes Genitourinary: No Hepatitis: No Hiatal Hernia: Yes Hypertension: Yes Immune Disorder: No Inguinal Hernia: Yes (left side) Kidney Stones: No Musculoskeletal: Yes (RIGHT SHOULDER ARTHRITIS) Parkinson's Disease: Yes Psychiatric: No Respiratory: No Migraines: No Renal Failure: No Seizures: No Sleep Apnea: No Thyroid Disease: Yes (HYPO) Ulcer: No Tetanus Vaccination: < 5 Years Past Surgical History Abdominal Surgery: Yes (LEFT INGUINAL HERNIA REPAIR) AICD: No Body Medical Devices: SCREW TO L3, PENILE IMPLANT, MESH TO LEFT GROIN, BILATERAL HIPS, RT SHOULDE Cardiac Surgery: No Ear Surgery: No Endocrine Surgery: No Eye Surgery: Yes (BILAT CATARACTS REMOVED & LENS IMPLANTS) Genitourinary Surgery: Yes (TURP) Gynecologic Surgery: No Joint Replacement: Yes (BILAT HIPS) Neurologic Surgery: Yes (L3,4,5 , SCREW IN L3) Oral Surgery: Yes (SKIN GRAFTING IN MOUTH) Pacemaker: No Thoracic Surgery: No Tonsillectomy: Yes Social History Alcohol Use: Yes (DAILY-1 GLASS OF WINE OR MARTINI) Tobacco Use: No (hx if cigars) Substance Use: No Allergies-Medications (Allergen,Severity, Reaction): Coded Allergies: No Known Allergies (Unverified Adverse Reaction, Unknown, 05/01/17) Reported Meds & Prescriptions Reported Meds & Active Scripts Active Aldactone (Spironolactone) 25 Mg Tab 25 Mg PO DAILY Pravastatin 10 Mg Tab 10 Mg PO DAILY Aspirin Low Strength (Aspirin) 81 Mg Chew 81 Mg CHEW DAILY 30 Days Reported Isosorbide Mononitrate ER (Isosorbide Mononitrate) 30 Mg Mayra 30 Mg PO DAILY Nitroglycerin SL (Nitroglycerin) 0.4 Mg Subl 0.4 Mg SL DIRECTED PRN ONE TABLET UNDER THE TONGUE NEEDED FOR CHEST PAIN, MAY REPEAT EVERY FIVE MINUTES FOR A TOTAL OF 3 DOSES OR CALL 911 IF NO RELIEF Sinemet (Carbidopa-Levodopa) 25-100 Mg Tab 1 Tab PO 5 TIMES A DAY Synthroid (Levothyroxine Sodium) 100 Mcg Tab 100 Mcg PO DAILY Diovan (Valsartan) 320 Mg Tab 320 Mg PO DAILY Bystolic (Nebivolol) 10 Mg Tab 10 Mg PO BID Review of Systems Except as stated in HPI: all other systems reviewed are Neg General / Constitutional: No: Fever Eyes: No: Blurred Vision HENT: No: Headaches Cardiovascular: Positive: Chest Pain or Discomfort Respiratory: Positive: Shortness of Breath Gastrointestinal: No: Nausea, Abdominal Pain Musculoskeletal: No: Myalgias Physical Exam Narrative GENERAL: Well-developed, well-nourished, alert elderly male. Resting comfortably in no acute distress. SKIN: Warm and dry. HEAD: Atraumatic. Normocephalic. EYES: Pupils equal and round. No scleral icterus. No injection or drainage. ENT: No nasal bleeding or discharge. Mucous membranes pink and moist. NECK: Trachea midline. No JVD. CARDIOVASCULAR: Regular rate and rhythm. RESPIRATORY: No accessory muscle use. Clear to auscultation. Breath sounds equal bilaterally. GASTROINTESTINAL: Abdomen soft, non-tender, nondistended. Hepatic and splenic margins not palpable. MUSCULOSKELETAL: Extremities without clubbing, cyanosis, or edema. No obvious deformities. NEUROLOGICAL: Awake and alert. No obvious cranial nerve deficits. Motor grossly within normal limits. Five out of 5 muscle strength in the arms and legs. Normal speech. PSYCHIATRIC: Appropriate mood and affect; insight and judgment normal. Data Data Last Documented VS Vital Signs Date Time Temp Pulse Resp B/P (MAP) Pulse Ox O2 Delivery O2 Flow Rate FiO2 05/01/17 21:28 20 05/01/17 21:28 71 125/65 (85) 94 Room Air 05/01/17 20:07 98.2 Orders Orders Ckmb (Isoenzyme) Profile (05/01/17 20:15) Complete Blood Count With Diff (05/01/17 20:15) Comprehensive Metabolic Panel (05/01/17 20:15) Magnesium (Mg) (05/01/17 20:15) Prothrombin Time / Inr (Pt) (05/01/17 20:15) Act Partial Throm Time (Ptt) (05/01/17 20:15) Troponin I (05/01/17 20:15) Chest, Single Ap (05/01/17 20:15) Ecg Monitoring (05/01/17 20:15) Bilateral Bp Monitoring (05/01/17 20:15) Iv Access Insert/Monitor (05/01/17 20:15) Oximetry (05/01/17 20:15) Oxygen Administration (05/01/17 20:15) Sodium Chloride 0.9% Flush (Ns Flush) (05/01/17 20:15) Nitroglycerin Sl (Nitrostat Sl) (05/01/17 21:15) CKMB (05/01/17 20:15) CKMB% (05/01/17 20:15) Aspirin Chew (Aspirin Chew) (05/01/17 21:45) Heparin Infusion ALFONSO.Q1H (05/01/17 21:34) Heparin Inj (Heparin Inj) (05/01/17 21:45) Heparin-D5w 25,000 U/250 Ml (Heparin-D5w (05/01/17 21:45) Cbc No Diff, Includes Plts (05/04/17 06:00) Act Partial Throm Time (Ptt) (05/02/17 04:34) Admit Order (Ed Use Only) (05/01/17 21:41) Labs Laboratory Tests Test 05/01/17 20:15 White Blood Count 7.8 TH/MM3 Red Blood Count 3.98 MIL/MM3 Hemoglobin 12.8 GM/DL Hematocrit 37.4 % Mean Corpuscular Volume 94.0 FL Mean Corpuscular Hemoglobin 32.3 PG Mean Corpuscular Hemoglobin Concent 34.3 % Red Cell Distribution Width 13.4 % Platelet Count 156 TH/MM3 Mean Platelet Volume 9.1 FL Neutrophils (%) (Auto) 76.1 % Lymphocytes (%) (Auto) 15.3 % Monocytes (%) (Auto) 6.4 % Eosinophils (%) (Auto) 1.7 % Basophils (%) (Auto) 0.5 % Neutrophils # (Auto) 6.0 TH/MM3 Lymphocytes # (Auto) 1.2 TH/MM3 Monocytes # (Auto) 0.5 TH/MM3 Eosinophils # (Auto) 0.1 TH/MM3 Basophils # (Auto) 0.0 TH/MM3 CBC Comment DIFF FINAL Differential Comment Prothrombin Time 10.6 SEC Prothromb Time International Ratio 1.0 RATIO Activated Partial Thromboplast Time 26.0 SEC Blood Urea Nitrogen 24 MG/DL Creatinine 1.48 MG/DL Random Glucose 93 MG/DL Total Protein 7.3 GM/DL Albumin 3.7 GM/DL Calcium Level 9.0 MG/DL Magnesium Level 2.0 MG/DL Alkaline Phosphatase 88 U/L Aspartate Amino Transf (AST/SGOT) 24 U/L Alanine Aminotransferase (ALT/SGPT) 10 U/L Total Bilirubin 0.4 MG/DL Sodium Level 140 MEQ/L Potassium Level 4.1 MEQ/L Chloride Level 106 MEQ/L Carbon Dioxide Level 23.9 MEQ/L Anion Gap 10 MEQ/L Estimat Glomerular Filtration Rate 45 ML/MIN Total Creatine Kinase 156 U/L Creatine Kinase MB 5.4 NG/ML Troponin I 0.13 NG/ML MDM Medical Decision Making Medical Screen Exam Complete: Yes Emergency Medical Condition: Yes Interpretation(s) Laboratory Tests Test 05/01/17 20:15 White Blood Count 7.8 TH/MM3 Red Blood Count 3.98 MIL/MM3 Hemoglobin 12.8 GM/DL Hematocrit 37.4 % Mean Corpuscular Volume 94.0 FL Mean Corpuscular Hemoglobin 32.3 PG Mean Corpuscular Hemoglobin Concent 34.3 % Red Cell Distribution Width 13.4 % Platelet Count 156 TH/MM3 Mean Platelet Volume 9.1 FL Neutrophils (%) (Auto) 76.1 % Lymphocytes (%) (Auto) 15.3 % Monocytes (%) (Auto) 6.4 % Eosinophils (%) (Auto) 1.7 % Basophils (%) (Auto) 0.5 % Neutrophils # (Auto) 6.0 TH/MM3 Lymphocytes # (Auto) 1.2 TH/MM3 Monocytes # (Auto) 0.5 TH/MM3 Eosinophils # (Auto) 0.1 TH/MM3 Basophils # (Auto) 0.0 TH/MM3 CBC Comment DIFF FINAL Differential Comment Prothrombin Time 10.6 SEC Prothromb Time International Ratio 1.0 RATIO Activated Partial Thromboplast Time 26.0 SEC Blood Urea Nitrogen 24 MG/DL Creatinine 1.48 MG/DL Random Glucose 93 MG/DL Total Protein 7.3 GM/DL Albumin 3.7 GM/DL Calcium Level 9.0 MG/DL Magnesium Level 2.0 MG/DL Alkaline Phosphatase 88 U/L Aspartate Amino Transf (AST/SGOT) 24 U/L Alanine Aminotransferase (ALT/SGPT) 10 U/L Total Bilirubin 0.4 MG/DL Sodium Level 140 MEQ/L Potassium Level 4.1 MEQ/L Chloride Level 106 MEQ/L Carbon Dioxide Level 23.9 MEQ/L Anion Gap 10 MEQ/L Estimat Glomerular Filtration Rate 45 ML/MIN Total Creatine Kinase 156 U/L Creatine Kinase MB 5.4 NG/ML Troponin I 0.13 NG/ML Vital Signs Date Time Temp Pulse Resp B/P (MAP) Pulse Ox O2 Delivery O2 Flow Rate FiO2 05/01/17 20:24 77 20 204/90 (128) 96 Room Air 05/01/17 20:20 69 96 Room Air 05/01/17 20:19 20 95 Room Air 05/01/17 20:19 95 Room Air 05/01/17 20:07 98.2 77 20 186/111 (136) 95 Differential Diagnosis ACS vs NSTEMI vs USA vs pleuritic pain vs GERD vs metabolic abnormality Narrative Course Patient presented with complaint of chest pain is midsternal with radiation to the left shoulder, this started 10 minutes prior to arrival and was resolved after one nitroglycerin sublingually at home. Patient was hypertensive on arrival, labs and imaging ordered and pending. Initial EKG shows sinus rhythm with frequent supraventricular PVCs. 2109 patient complained of chest pain similar to when he experienced earlier, nitroglycerin ordered. After 2 sublingual nitroglycerin patient reported resolution in his chest pain once again. Patient's troponin is elevated at 0.13, patient placed on heparin drip and was given 243 mg of chewable aspirin. Patient currently takes a baby aspirin daily. Findings discussed with my attending physician. Patient will be admitted, hospitalist paged for admission. Discussed with Dr. Watson who accepted admission for NSTEMI. CBC with no acute abnormalities. Chemistry with elevated BUN/creatinine /1.48, this is improved from prior results. Patient and family informed of results and findings. Admission orders placed. 1" NITRO paste ordered to chest wall. Diagnosis Primary Impression: NSTEMI (non-ST elevated myocardial infarction) Admitting Information Admitting Physician Requests: Admit Condition: Stable Stacey Joshua [facility] May 01, 2017 20:37
[2017-05-01 20:46] LABS: BASOPHIL % 0.5 % (0.0-2.0); EOSINOPHIL # 0.1 TH/MM3 (0-0.4); EOSINOPHIL % 1.7 % (0.0-4.0); HEMATOCRIT 37.4 % (39.0-51.0); HEMO FLAGS DIFF FINAL; LYMPH % 15.3 % (9.0-44.0); LYMPHOCYTE # 1.2 TH/MM3 (1.0-4.8); MEAN CORPUSCULAR HEMOGLOBIN 32.3 PG (27.0-34.0); MEAN CORPUSCULAR HGB CONC 34.3 % (32.0-36.0); MONO % 6.4 % (0.0-8.0); NEUT % 76.1 % (16.0-70.0); PLATELET COUNT 156 TH/MM3 (150-450); RED BLOOD COUNT 3.98 MIL/MM3 (4.50-5.90); RED CELL DISTRIBUTION WIDTH 13.4 % (11.6-17.2); WHITE BLOOD COUNT 7.8 TH/MM3 (4.0-11.0)
[2017-05-01] MEDS ORDERED: ISOS30TA3 PO (20:52)
[2017-05-01] MEDS ORDERED: NITR1SUB3 SL (20:52)
[2017-05-01 20:57] LABS: PROTHROMBIN TIME - PATIENT 10.6 SEC (9.8-11.6)
[2017-05-01 21:03] LABS: ANION GAP 10 MEQ/L (5-15); AST (GOT) 24 U/L (15-37); BICARBONATE 23.9 MEQ/L (21.0-32.0); BLOOD UREA NITROGEN 24 MG/DL (7-18); CHLORIDE 106 MEQ/L (98-107); GLOMERULAR FILTRATION RATE 45 ML/MIN (>89); POTASSIUM 4.1 MEQ/L (3.5-5.1); SODIUM (NA) 140 MEQ/L (136-145)
[2017-05-01 21:09] LABS: ALKALINE PHOSPHATASE 88 U/L (45-117); ALT (GPT) 10 U/L (12-78); CREATINE KINASE 156 U/L (39-308); TOTAL BILIRUBIN ADULT 0.4 MG/DL (0.2-1.0)
[2017-05-01] MEDS: NITROGLYCERIN 0.4 MG SL 25 TABS/BTL SL PRN ×2 (21:12→21:20)
[2017-05-01 21:21] LABS: CKMB 5.4 NG/ML (0.5-3.6)
[2017-05-01] MEDS ORDERED: ASPIRIN 81 MG CHEW TAB CHEW ONE (21:45)
[2017-05-01] MEDS ORDERED: HEPARIN SODIUM - IV 10,000 UNITS/10 ML VIAL IV ONE (21:45)
--- NOTE | 2017-05-01 21:49 | RADRPT ---
EXAM DATE/TIME: 05/01/2017 20:29 [place] COMPARISON: CTA THORACIC ABDOMINAL AORTA W 3D RECON, April 10, 2017, 8:28. CHEST SINGLE AP, April 10, 2017, 3:40. INDICATIONS : Chest pain MEDICAL HISTORY : Cardiovascular disease. Parkinson's. hypertension. hypothyroidism. skin cancer SURGICAL HISTORY : Back and hip surgery. right shoulder arthroplasty ENCOUNTER: Initial ACUITY: 1 day PAIN SCORE: 4/10 LOCATION: chest FINDINGS: The heart size is enlarged. The lungs demonstrate mild prominence of the interstitium. There is furt her increased density at the left base. There some air seen over the heart region which suggests a hi atal hernia. There is a right shoulder prosthesis in place. CONCLUSION: 1. Diffuse interstitial process likely representing pulmonary venous hypertension versus mild edema. 2. Moderate hiatal hernia. 3. Left lower lobe superimposed atelectasis or consolidation. Jose Francisco Chambers MD on May 01, 2017 at 21:46 Board Certified Radiologist. This report was verified electronically.
--- NOTE | 2017-05-01 22:05 | PD ---
Physical Exam Date Seen by Provider: May 01, 2017 Time Seen by Provider: 21:00 Narrative I am seeing this patient with NAVIN Aly. 86-year-old male with history of coronary artery disease, angina, presents here with complaints of chest pain started tonight. The patient was seen by his case maker today who arranged to catheter him on Monday. He was told if his pain returned and not relieved by nitroglycerin he should come to the emergency department for evaluation. Patient was given one nitroglycerin at home that nearly resolved his pain. When [facility] arrived they stated he was comfortable and pain-free. The patient arrived here, he started having recurrent pain. He was given another nitroglycerin tablet. EKG showed no acute ST elevation or depression. Cardiac enzymes were elevated. The patient is pain-free at this time. Initially we tried to call Dr. Lion as he was on for STEMI. Unfortunate, the light rail train operator directed us to Dr. Pablo. Dr. Pablo agreed the patient should be admitted to the hospital. She did not need to come see the patient as there was no acute issue that she needed to deal with at this point. The patient will be admitted to the [facility] Hospitalist service. OB consultation for Dr. Lion. The patient was started on heparin per protocol. He be given a baby aspirin which was increased to 324. Data Data Last Documented VS Vital Signs Date Time Temp Pulse Resp B/P (MAP) Pulse Ox O2 Delivery O2 Flow Rate FiO2 05/01/17 21:28 20 05/01/17 21:28 71 125/65 (85) 94 Room Air 05/01/17 20:07 98.2 Orders Orders Ckmb (Isoenzyme) Profile (05/01/17 20:15) Complete Blood Count With Diff (05/01/17 20:15) Comprehensive Metabolic Panel (05/01/17 20:15) Magnesium (Mg) (05/01/17 20:15) Prothrombin Time / Inr (Pt) (05/01/17 20:15) Act Partial Throm Time (Ptt) (05/01/17 20:15) Troponin I (05/01/17 20:15) Chest, Single Ap (05/01/17 20:15) Ecg Monitoring (05/01/17 20:15) Bilateral Bp Monitoring (05/01/17 20:15) Iv Access Insert/Monitor (05/01/17 20:15) Oximetry (05/01/17 20:15) Oxygen Administration (05/01/17 20:15) Sodium Chloride 0.9% Flush (Ns Flush) (05/01/17 20:15) Nitroglycerin Sl (Nitrostat Sl) (05/01/17 21:15) CKMB (05/01/17 20:15) CKMB% (05/01/17 20:15) Aspirin Chew (Aspirin Chew) (05/01/17 21:45) Heparin Infusion ALFONSO.Q1H (05/01/17 21:34) Heparin Inj (Heparin Inj) (05/01/17 21:45) Heparin-D5w 25,000 U/250 Ml (Heparin-D5w (05/01/17 21:45) Cbc No Diff, Includes Plts (05/04/17 06:00) Act Partial Throm Time (Ptt) (05/02/17 04:34) Admit Order (Ed Use Only) (05/01/17 21:41) Labs Laboratory Tests Test 05/01/17 20:15 White Blood Count 7.8 TH/MM3 Red Blood Count 3.98 MIL/MM3 Hemoglobin 12.8 GM/DL Hematocrit 37.4 % Mean Corpuscular Volume 94.0 FL Mean Corpuscular Hemoglobin 32.3 PG Mean Corpuscular Hemoglobin Concent 34.3 % Red Cell Distribution Width 13.4 % Platelet Count 156 TH/MM3 Mean Platelet Volume 9.1 FL Neutrophils (%) (Auto) 76.1 % Lymphocytes (%) (Auto) 15.3 % Monocytes (%) (Auto) 6.4 % Eosinophils (%) (Auto) 1.7 % Basophils (%) (Auto) 0.5 % Neutrophils # (Auto) 6.0 TH/MM3 Lymphocytes # (Auto) 1.2 TH/MM3 Monocytes # (Auto) 0.5 TH/MM3 Eosinophils # (Auto) 0.1 TH/MM3 Basophils # (Auto) 0.0 TH/MM3 CBC Comment DIFF FINAL Differential Comment Prothrombin Time 10.6 SEC Prothromb Time International Ratio 1.0 RATIO Activated Partial Thromboplast Time 26.0 SEC Blood Urea Nitrogen 24 MG/DL Creatinine 1.48 MG/DL Random Glucose 93 MG/DL Total Protein 7.3 GM/DL Albumin 3.7 GM/DL Calcium Level 9.0 MG/DL Magnesium Level 2.0 MG/DL Alkaline Phosphatase 88 U/L Aspartate Amino Transf (AST/SGOT) 24 U/L Alanine Aminotransferase (ALT/SGPT) 10 U/L Total Bilirubin 0.4 MG/DL Sodium Level 140 MEQ/L Potassium Level 4.1 MEQ/L Chloride Level 106 MEQ/L Carbon Dioxide Level 23.9 MEQ/L Anion Gap 10 MEQ/L Estimat Glomerular Filtration Rate 45 ML/MIN Total Creatine Kinase 156 U/L Creatine Kinase MB 5.4 NG/ML Troponin I 0.13 NG/ML [facility] Medical Record Reviewed: Yes Supervised Visit with EBONY: Yes Differential Diagnosis Unstable angina versus ACS versus musculoskeletal pain Narrative Course 86-year-old male with history of angina who is scheduled for a catheter on Monday of next week, presents here with complaints of chest pain. The patient was given one nitroglycerin at home which relieved his pain. The patient had recurrent pain here again and was given a further nitroglycerin tablet. His pain is now resolved. His EKG showed no evidence of acute ST elevation or depression. Cardiac enzymes showed a troponin that was elevated at 0.13. Given this, it appears that he is having a non-ST elevation NE. The patient was started on heparin given further 240 mg of aspirin. There is also given an inch of nitroglycerin placed on the anterior chest wall. The patient be admitted to the [facility] hospitalist service. The beta consult with Dr. Lion for the morning. Diagnosis Primary Impression: Non-ST elevation NE (NSTEMI) Additional Impressions: Hypertension Cardiomyopathy history of congestive heart failure Admitting Information Admitting Physician Requests: Admit Dwayne Trejo MD May 01, 2017 22:05
[2017-05-01] MEDS ORDERED: NITROGLYCERIN 2% OINT 1 GM PACKET TOPICAL ONE (22:15)
[2017-05-01] MEDS: HEPARIN-D5W 25,000 U/250 ML 250 ML IV PRN (23:22)
[2017-05-02] VITALS (8 sets, daily range): BP systolic 140–173; BP diastolic 63–82; PULSE 57–76; RESP 16–19; TEMP 97.6–98.3; O2SAT 91–100
[2017-05-02] MEDS ORDERED: ONDANSETRON HCL 4 MG/2 ML VIAL IV PUSH PRN (00:30)
[2017-05-02] MEDS ORDERED: SODIUM CHLORIDE 0.9% FLUSH 10 ML FLUSH IV FLUSH PRN (00:30)
--- NOTE | 2017-05-02 00:40 | HHI.HP ---
[facility] Service [facility] Primary Care Physician Rena Craft MD Admission Diagnosis [place], ELEVATED TROPONIN Diagnoses: Travel History International Travel<30 Days: No Contact w/Intl Traveler <30 Da: No Traveled to Known Affected Are: No History of Present Illness 86-year-old male with a past medical history significant for coronary artery disease, hypertension, hyperlipidemia and Parkinson's disease presents to the emergency department with chest pain. 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 Lion, this afternoon and a cardiac catheterization was scheduled for Monday. Upon returning to home, the patient started to have severe substernal, crushing chest pain and called EMS. He states the pain was relieved with nitroglycerin and by the time EMS arrived he was pain-free. He also reports shortness of breath, worse with exertion. He was taken to the emergency department where his pain returned, again relieved with topical nitroglycerin. The patient had elevated troponin of 0.13, most recent troponin, on 04/10/17 was 0.03. EKG showed T-wave inversions in V5 and V6, no ST segment elevations or depressions. Review of Systems Denies fever or chills Denies blurry vision, otorrhea, rhinorrhea Denies sore throat and cough Chest pain and shortness of breath No abdominal pain Denies constipation/diarrhea/nausea/vomiting Denies muscle pain/weakness No rashes Past Family Social History Past Medical History Hypertension Hyperlipidemia Parkinson's disease Hiatal hernia GERD Past Surgical History Bilateral hip replacements Right shoulder surgery Left inguinal hernia repair Tonsillectomy Allergies: Coded Allergies: No Known Allergies (Unverified Allergy, Unknown, 05/01/17) Family History Parents without coronary artery disease or diabetes mellitus Social History Denies tobacco. Has 1 drink daily. Denies marijuana or illicit drugs. Physical Exam Vital Signs Vital Signs Date Time Temp Pulse Resp B/P (MAP) Pulse Ox O2 Delivery O2 Flow Rate FiO2 05/01/17 22:39 98.6 59 16 155/76 (102) 100 05/01/17 22:37 05/01/17 21:28 20 11/13/17 21:28 71 20 125/65 (85) 94 Room Air 05/01/17 21:17 73 20 128/64 (85) 95 Room Air 05/01/17 21:12 71 16 164/95 (118) 95 Room Air 05/01/17 20:24 77 20 204/90 (128) 96 Room Air 05/01/17 20:20 69 96 Room Air 05/01/17 20:19 20 95 Room Air 05/01/17 20:19 95 Room Air 05/01/17 20:07 98.2 77 20 186/111 (136) 95 Physical Exam GENERAL: Elderly male lying in bed SKIN: No rashes, ecchymoses or lesions. Cool and dry. HEAD: Atraumatic. Normocephalic. No temporal or scalp tenderness. EYES: Pupils equal round and reactive. Extraocular motions intact. No scleral icterus. No injection or drainage. ENT: Nose without bleeding, purulent drainage or septal hematoma. Throat without erythema, tonsillar hypertrophy or exudate. Uvula midline. Airway patent. NECK: Trachea midline. No JVD or lymphadenopathy. Supple, nontender, no meningeal signs. CARDIOVASCULAR: Regular rate and rhythm without murmurs, gallops, or rubs. RESPIRATORY: Clear to auscultation. Breath sounds equal bilaterally. No wheezes , rales, or rhonchi. GASTROINTESTINAL: Abdomen soft, non-tender, nondistended. No hepato-splenomegaly , or palpable masses. No guarding. MUSCULOSKELETAL: Extremities without clubbing, cyanosis, or edema. No joint tenderness, effusion, or edema noted. No calf tenderness. Negative Homans sign bilaterally. NEUROLOGICAL: Awake and alert. Cranial nerves II through XII intact. Motor and sensory grossly within normal limits. Normal speech. Laboratory Laboratory Tests Test 05/01/17 20:15 White Blood Count 7.8 Red Blood Count 3.98 Hemoglobin 12.8 Hematocrit 37.4 Mean Corpuscular Volume 94.0 Mean Corpuscular Hemoglobin 32.3 Mean Corpuscular Hemoglobin Concent 34.3 Red Cell Distribution Width 13.4 Platelet Count 156 Mean Platelet Volume 9.1 Neutrophils (%) (Auto) 76.1 Lymphocytes (%) (Auto) 15.3 Monocytes (%) (Auto) 6.4 Eosinophils (%) (Auto) 1.7 Basophils (%) (Auto) 0.5 Neutrophils # (Auto) 6.0 Lymphocytes # (Auto) 1.2 Monocytes # (Auto) 0.5 Eosinophils # (Auto) 0.1 Basophils # (Auto) 0.0 CBC Comment DIFF FINAL Differential Comment Prothrombin Time 10.6 Prothromb Time International Ratio 1.0 Activated Partial Thromboplast Time 26.0 Blood Urea Nitrogen 24 Creatinine 1.48 Random Glucose 93 Total Protein 7.3 Albumin 3.7 Calcium Level 9.0 Magnesium Level 2.0 Alkaline Phosphatase 88 Aspartate Amino Transf (AST/SGOT) 24 Alanine Aminotransferase (ALT/SGPT) 10 Total Bilirubin 0.4 Sodium Level 140 Potassium Level 4.1 Chloride Level 106 Carbon Dioxide Level 23.9 Anion Gap 10 Estimat Glomerular Filtration Rate 45 Total Creatine Kinase 156 Creatine Kinase MB 5.4 Troponin I 0.13 Result Diagram: 05/01/17201405/01/172014 Jessica VTE Risk Assessment Mazinrinrnea VTE Risk Assessment: Mod/High Risk (score >= 2) Caprini Risk Assessment Model Point Value = 1 Point Value = 2 Point Value = 3 Point Value = 5 Age 41-60 Minor surgery BMI > 25 kg/m2 Swollen legs Varicose veins or History of unexplained or recurrent spontaneous Oral contraceptives or hormone replacement Sepsis (< 1 month) Serious lung disease, including pneumonia (< 1 month) Abnormal pulmonary function Acute myocardial infarction Congestive heart failure (< 1 month) History of inflammatory bowel disease Medical patient at bed rest Age 61-74 Arthroscopic surgery Major open surgery (> 45 min) Laparoscopic surgery (> 45 min) Malignancy Confined to bed (> 72 hours) Immobilizing plaster cast Central venous access Age >= 75 History of VTE Family history of VTE Factor V Leiden Prothrombin [id number] Lupus anticoagulant Anticardiolipin antibodies Elevated serum homocysteine Heparin-induced thrombocytopenia Other congenital or acquired thrombophilia Stroke (< 1 month) Elective arthroplasty Hip, pelvis, or leg fracture Acute spinal cord injury (< 1 month) Prophylaxis Regimen Total Risk Factor Score Risk Level Prophylaxis Regimen 0-1 Low Early ambulation 2 Moderate Order ONE of the following: *Sequential Compression Device (SCD) *Heparin 5000 units SQ BID 3-4 Higher Order ONE of the following medications: *Heparin 5000 units SQ TID *Enoxaparin/Lovenox 40 mg SQ daily (WT < 150 kg, CrCl > 30 mL/min) *Enoxaparin/Lovenox 30 mg SQ daily (WT < 150 kg, CrCl > 10-29 mL/min) *Enoxaparin/Lovenox 30 mg SQ BID (WT < 150 kg, CrCl > 30 mL/min) AND/OR *Sequential Compression Device (SCD) 5 or more Highest Order ONE of the following medications: *Heparin 5000 units SQ TID (Preferred with Epidurals) *Enoxaparin/Lovenox 40 mg SQ daily (WT < 150 kg, CrCl > 30 mL/min) *Enoxaparin/Lovenox 30 mg SQ daily (WT < 150 kg, CrCl > 10-29 mL/min) *Enoxaparin/Lovenox 30 mg SQ BID (WT < 150 kg, CrCl > 30 mL/min) AND *Sequential Compression Device (SCD) Assessment and Plan Assessment and Plan 86-year-old male with past medical history for coronary artery disease, hypertension, hyperlipidemia and Parkinson's disease presents the emergency department with chest pain. 1. 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 Hypertension Continue home medications 3. Parkinson's disease Continue home medications 4. Hyperlipidemia Continue home statin 5. GERD Continue PPI FEN: NPO Electrolytes: monitor and replete prn Heparin ggt Physician Certification 2 Midnight Certification Type: Admission for Inpatient Services Order for Inpatient Services The services are ordered in accordance with Medicare regulations or non- Medicare payer requirements, as applicable. In the case of services not specified as inpatient-only, they are appropriately provided as inpatient services in accordance with the 2-midnight benchmark. Estimated LOS (days): 2 2 days is the estimated time the patient will need to remain in the hospital, assuming treatment plan goals are met and no additional complications. Post-Hospital Plan: Not yet determined Gela Watson MD May 02, 2017 00:40
[2017-05-02 02:41] LABS: AUTOMATED NEUTROPHIL # 5.8 TH/MM3 (1.8-7.7); BASOPHIL % 0.6 % (0.0-2.0); EOSINOPHIL # 0.2 TH/MM3 (0-0.4); EOSINOPHIL % 2.8 % (0.0-4.0); HEMATOCRIT 35.7 % (39.0-51.0); HEMO FLAGS DIFF FINAL; LYMPH % 16.6 % (9.0-44.0); LYMPHOCYTE # 1.4 TH/MM3 (1.0-4.8); MEAN CELL VOLUME 94.2 FL (80.0-100.0); MEAN CORPUSCULAR HEMOGLOBIN 32.5 PG (27.0-34.0); MEAN CORPUSCULAR HGB CONC 34.5 % (32.0-36.0); MONO % 8.6 % (0.0-8.0); NEUT % 71.4 % (16.0-70.0); PLATELET COUNT 149 TH/MM3 (150-450); RED BLOOD COUNT 3.79 MIL/MM3 (4.50-5.90); RED CELL DISTRIBUTION WIDTH 13.4 % (11.6-17.2); WHITE BLOOD COUNT 8.2 TH/MM3 (4.0-11.0)
[2017-05-02 02:58] LABS: ANION GAP 8 MEQ/L (5-15); BICARBONATE 25.2 MEQ/L (21.0-32.0); BLOOD UREA NITROGEN 26 MG/DL (7-18); CHLORIDE 107 MEQ/L (98-107); GLOMERULAR FILTRATION RATE 49 ML/MIN (>89); POTASSIUM 4.4 MEQ/L (3.5-5.1); SODIUM (NA) 140 MEQ/L (136-145)
[2017-05-02 03:01] LABS: CREATINE KINASE 123 U/L (39-308); LDL CHOLESTEROL 55 MG/DL (0-99)
[2017-05-02] MEDS: LEVOTHYROXINE SODIUM 100 MCG TAB PO SCH (05:40)
[2017-05-02] MEDS: CARBIDOPA/LEVODOPA 25 MG/100 MG TAB PO SCH ×5 (05:40→21:21)
[2017-05-02 07:26] LABS: APTT (PATIENT) 41.3 SEC (24.3-30.1)
[2017-05-02] MEDS ORDERED: SPIRONOLACTONE 25 MG TAB PO SCH (09:00)
[2017-05-02] MEDS: SODIUM CHLORIDE 0.9% FLUSH 10 ML FLUSH IV FLUSH SCH ×2 (09:00→21:00)
[2017-05-02] MEDS: VALSARTAN 160 MG TAB PO SCH (09:01)
[2017-05-02] MEDS: PRAVASTATIN SOD 10 MG TAB PO SCH (09:01)
[2017-05-02] MEDS: NEBIVOLOL 10 MG TAB PO SCH ×2 (09:27→21:21)
[2017-05-02 09:56] LABS: CREATINE KINASE 134 U/L (39-308)
[2017-05-02 10:14] LABS: CKMB 4.2 NG/ML (0.5-3.6)
[2017-05-02] MEDS: SODIUM CHLOR 0.9% 1000 ML INJ 1,000 ML IV SCH (12:49)
--- NOTE | 2017-05-02 14:02 | EKG ---
Date Performed: 05/02/2017 Time Performed: 07:45:42 PTAGE: 86 years EKG: Sinus bradycardia with PVC(s) with PAC(s). Possible right atrial abnormality Possible left ventricular hypertrophy Inferior/lateral ST-T changes are probably due to ventricular hypertrophy Abn ormal ECG PREVIOUS TRACING : 05/02/2017 02.42 Compared to prior tracing no significant change DOCTOR: Rolando Chong Interpretating Date/Time 05/02/2017 13:59:32
--- NOTE | 2017-05-02 14:08 | EKG ---
Date Performed: 05/02/2017 Time Performed: 02:42:12 PTAGE: 86 years EKG: Sinus rhythm with PAC(s) Right axis deviation Lateral infarct - age undetermined Inferior infarct - age undetermi andrzej Tall R V1/V2 probably reflect the infarct Septal ST-T changes are nonspecific Abnormal ECG PREVIOUS TRACING : 04/10/2017 03.35 Compared to prior tracing no significant change DOCTOR: Rolando Chong Interpretating Date/Time 05/02/2017 14:04:04
[2017-05-02 16:39] LABS: APTT (PATIENT) 39.7 SEC (24.3-30.1)
--- NOTE | 2017-05-02 21:59 | MB ---
cc: DIMITRI POWELL DO DATE OF CONSULTATION: 05/02/2017 REASON FOR CONSULTATION: Chest pain, elevated troponin. HISTORY OF PRESENT ILLNESS Bishop Ayala is a pleasant 86-year-old male whom I saw in the office yesterday for continued chest pain. He was originally seen in the late portion of March and at that time underwent stress testing. It was found that he had a small area of ischemia and so I discussed with him and his daughter the options, and at that time based on his age and comorbidities they decided that they would like to treat him medically. He was then to see me in the office and started noticing the chest pain was coming back. I called him in [employer] and Nitro after trying to refer him to the hospital but he wanted to see me in the office before deciding. I did see him yesterday and during that we had decided that he would undergo invasive management of his coronary artery disease and planned for next week. He went home and started having more significant crushing chest pain, and so he called EMS. He ended up taking a nitroglycerin and by the time EMS arrived, he was chest pain free. He also states that he has been significantly short of breath with any exertion. Upon arrival to the ER, he noted that he had some chest pain and this was relieved by topical nitroglycerin. In seeing him, he is currently hemodynamically stable without chest pain or shortness of breath. PAST MEDICAL HISTORY 1. Hypertension. 2. Hyperlipidemia. 3. Parkinson's disease. 4. Hiatal hernia. 5. GERD PAST SURGICAL HISTORY 1. Bilateral hip replacement. 2. Right shoulder surgery. 3. Left inguinal hernia repair 4. Tonsillectomy. ALLERGIES NO KNOWN DRUG ALLERGIES. MEDICATIONS 1. Pravastatin 10 mg daily 2. Isosorbide mononitrate 30 mg daily. 3. Nitro sublingual as needed 4. Bystolic 10 mg b.i.d. 5. Diovan 320 mg daily 6. Aldactone 25 mg daily 7. Aspirin 81 mg daily 8. Sinemet 25/100 5x a day 9. Synthroid 100 mcg daily. FAMILY HISTORY Denies premature coronary artery disease or sudden cardiac within the family. SOCIAL HISTORY The patient denies tobacco. He does drink occasionally. Denies drug abuse. REVIEW OF SYSTEMS 14-systems were reviewed including osteopathic, pertinent positives and negatives above otherwise negative. PHYSICAL EXAMINATION Vital signs: Temperature 98.0, heart rate 64, blood pressure 148/72, respirations 19, pulse ox 96% on 2 liters. In general the patient appears well. No acute distress, alert awake and oriented x3. Extraocular muscles intact. Mucous membranes moist. Neck is supple. No JVD at 45 degrees. No carotid bruits heard bilaterally. Carotid upstroke is brisk in nature. Heart: Regular rate and rhythm. Positive first and second heart sounds with a 1/6 crescendo-decrescendo murmur to the right sternal border. Lungs: Relatively clear bilaterally with no overt rales or rhonchi. Abdomen: Soft, nontender, nondistended, no organomegaly noted. Extremities: Show no clubbing, cyanosis or edema. Femoral and distal pulses intact bilaterally. Neurologically: No focal deficits. Skin: Warm, dry and intact. Osteopathic: Mild kyphoscoliosis, no lordosis or paraspinal tender points. LABORATORY WORK: Hemoglobin 12.3, hematocrit 35.7, platelets 149. Potassium 4.4, BUN 26, creatinine 1.37, troponin 0.15. Electrocardiogram (May 02, 2017 at 07:45) sinus rhythm with occasional PACs, probable LVH, ST-T wave changes may be due to LVH versus ischemia. IMPRESSION 1. Chest pain concerning for unstable angina. 2. Elevated troponin secondary to angina. 3. History of hypertension 4. History of hyperlipidemia 5. Parkinson's disease. RECOMMENDATIONS 1. Mr. Ayala presented with chest pain concerning for coronary insufficiency. He has since been placed on a heparin drip with nitroglycerin topical and is chest pain free. 2. I have discussed with him cardiac catheterization, risks, benefits and alternatives and he consents as such. 3. We will plan on doing this tomorrow morning from a right radial standpoint. Further recommendations will be made based on coronary visualization. Thank you for allowing me to see Bishop Ayala. If there are any questions, please do not hesitate to call. Dimitri Powell DO VGP/CHRISTY /9:28 PM /9:41 PM
[2017-05-02] MEDS: HEPARIN-D5W 25,000 U/250 ML 250 ML IV PRN (23:23)
[2017-05-03] VITALS (14 sets, daily range): BP systolic 93–177; BP diastolic 51–80; PULSE 50–86; RESP 16–20; TEMP 97–98.2; O2SAT 70–99
[2017-05-03] MEDS: LEVOTHYROXINE SODIUM 100 MCG TAB PO SCH (05:15)
[2017-05-03] MEDS: CARBIDOPA/LEVODOPA 25 MG/100 MG TAB PO SCH ×5 (05:15→21:04)
[2017-05-03 07:32] LABS: APTT (PATIENT) 42.9 SEC (24.3-30.1)
[2017-05-03 07:51] LABS: BICARBONATE 22.8 MEQ/L (21.0-32.0)
[2017-05-03] MEDS: VALSARTAN 160 MG TAB PO SCH (08:41)
[2017-05-03] MEDS: PRAVASTATIN SOD 10 MG TAB PO SCH (08:41)
[2017-05-03] MEDS: NEBIVOLOL 10 MG TAB PO SCH ×2 (08:41→21:04)
[2017-05-03] MEDS: ASPIRIN 81 MG CHEW TAB CHEW SCH (08:41)
[2017-05-03] MEDS: SODIUM CHLOR 0.9% 1000 ML INJ 1,000 ML IV SCH (10:49)
--- NOTE | 2017-05-03 11:19 | HHI.PR ---
Subjective Remarks did not sleep well last evening- usually takes a sleeping pill "Belsamra" daughters states he took Restoril in the past and helped no nausea or vomiting or chest pains Objective Vitals Vital Signs Date Time Temp Pulse Resp B/P (MAP) Pulse Ox O2 Delivery O2 Flow Rate FiO2 05/03/17 09:47 96 21 05/03/17 08:08 97.3 58 20 158/70 (99) 96 05/03/17 04:03 98.2 57 16 160/69 (99) 96 05/03/17 04:03 Room Air 05/02/17 23:22 Room Air 05/02/17 23:22 98.0 58 16 157/71 (99) 93 05/02/17 20:05 57 05/02/17 19:35 98.3 59 16 146/65 (92) 91 05/02/17 19:35 Room Air 05/02/17 17:57 97 21 05/02/17 16:05 97.7 69 18 173/79 (110) 97 05/02/17 12:08 98.3 76 18 148/82 (104) 96 05/02/17 12:08 97.6 62 19 140/63 (88) 100 I/O 05/02/17 05/02/17 05/02/17 05/03/17 05/03/17 05/03/17 07:00 15:00 23:00 07:00 15:00 23:00 Intake Total 0 ml 380 ml 1233 ml Output Total 250 ml 1000 ml 950 ml Balance -250 ml -620 ml 283 ml Intake Oral 0 ml 380 ml 630 ml IV Total 603 ml Output Urine Total 250 ml 1000 ml 950 ml # Bowel Movements 0 1 0 Result Diagram: 05/02/17 0216 05/03/17 0710 Imaging Last Impressions Chest X-Ray 05/01/172014 Signed Impressions: Service Date/Time: Monday, May 01, 2017 20:29 - CONCLUSION: 1. Diffuse interstitial process likely representing pulmonary venous hypertension versus mild edema. 2. Moderate hiatal hernia. 3. Left lower lobe superimposed atelectasis or consolidation. Jose Francisco Chambers MD Procedures awake and alert, oriented x 3 anicteric lungs- no rales regular rhythm abdomen soft, nontender extremities no edema neuro exam - unremarkable A/P Assessment and Plan 86-year-old male with past medical history for coronary artery disease, hypertension, hyperlipidemia and Parkinson's disease presents the emergency department with chest pain. 1. NSTEMI Initial troponin 0.13, EKG showed T-wave inversions in V5 through V6 without ST segment elevations or depressions, reviewed by me Cardiology - plan for cath today Heparin drip Nitroglycerin/morphine for pain BB/ARB 2. Hypertension Continue home medications on ARB/BB 3. Parkinson's disease Continue home medications - patient will bring bottle to confirm dose 4. Hyperlipidemia Continue home statin 5. GERD Continue PPI 6. CKD stage gentle hydration- creatinine improve will ff bMP in am- post cath 7. 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 hypothyroidism- on synhtroids DC planning- depending on cath results Leon Buckner MD May 03, 2017 11:19
[2017-05-03] MEDS ORDERED: TEMAZEPAM 15 MG CAP PO PRN (11:30)
[2017-05-03] MEDS: NITROGLYCERIN 0.4 MG SL 25 TABS/BTL SL PRN ×2 (15:55→20:46)
[2017-05-03] MEDS ORDERED: IOHEXOL 350 MG/ML 50 ML BTL (for Cath Lab) OTHER ONE (16:09)
[2017-05-03] MEDS ORDERED: HEPARIN-NS/PF INJ 500 ML ONE (16:17)
[2017-05-03] MEDS ORDERED: NITROGLYCERIN INJ 5 ML ONE (16:17)
[2017-05-03] MEDS ORDERED: HEPARIN SODIUM - IV 10,000 UNITS/10 ML VIAL ONE (16:17)
[2017-05-03] MEDS ORDERED: MIDAZOLAM HCL 2 MG/2 ML VIAL ONE (16:31)
[2017-05-03] MEDS ORDERED: hydrALAZINE HCL 20 MG/ML VIAL ONE (16:59)
--- NOTE | 2017-05-03 17:25 | CATHPROC ---
[employer] HIS Report Study Information Study Number Admission Scheduled Start Study Start [id number] May 01 2017 9:43PM 05/02/2017 May 03 2017 3:48PM [facility] Cardiac Catheterization Admit Source Facility Department Emergency department [facility] - Unit Trust Manager Physician and Clinical Staff Initial Diimtri Valdivia Mounter Automatic Hayde Bennett RN Mounter Automatic Juan Carlos Moyer,AMARILIS Recorder Mary Ann Adames,RT(R) (BS) Scrub Rachael AppiahRT(R) Procedures Performed Procedure Location (Site) Vessel Name Coronary Angiograms LCA Left Coronary Coronary Angiograms RCA Right Coronary L Heart Cath Equipment Time Metal Tile Lather Description Size Mfg Part Number Used/Scraped TRANSDUCER, TRStreakAVE [id number] 16:20 RUTLEDGE FIGUEROA * Used W/STOCKCOCK *[id number] INTRODUCER SET, 16:22 [employer]. FR 5 [id number] *[id number] Used MICROPUNCTURE, STIFFENED [id number] *[id number] 16:20 [employer] PACK, CCL CUSTOM * Used *[id number] 16:20 [employer] SUPPORT, ARTERIAL ADULT [id number] *[id number] Used 16:37 MEDTRONIC JL 4.0 DXTERITY CATHETER FR 5 [id number] Used [id number] 16:53 Tessella MEDICAL PIGTAIL ANG. CATHETER FR 5 Used *[id number] 16:20 MERIT MEDICAL WIRE, 3MMJ .035 180CM 180CM Used *[id number] 16:20 [employer] WIRE, EXCHANGE 260CM 3MMJ 260CM Used *[id number] 16:20 NAMIC MANIFOLD, 4 PORT * Used *[id number] 16:20 NYCOMED OMNIPAQUE, 350 MG, 150ML 150ML [id number] Used 16:20 NYCOMED OMNIPAQUE, 350 MG, 150ML 150ML [id number] Used [id number] 16:20 FLORES MEDICAL BLANKET,WARM AIR CCL * Used *[id number] 16:22 TERUMO MEDICAL SHEATH, FR5 TERUMO (10CM) FR 5 Used *[id number] SHEATH, FR6 TRANSRADIAL [id number] 16:20 TERUMO MEDICAL FR 6 Used SLENDER 10CM *[id number] Equipment Model, Serial, Lot Number and Expiration Data Description Model Number Serial Number Lot Number Expiration Date INTRODUCER SET, [id number] 03-20-2020 MICROPUNCTURE, STIFFENED History: Current Medications Medication Dosage/Unit Route Frequency Last Date/Time Taken Statins (any) Beta Will ASA History: Allergies Allergy Reaction No Known Allergies History: Risk Factors Family History of Hypertension Dyslipidemia Previous [place] Previous Heart Failure Premature CAD Yes Yes No No Yes Prior Valve Prior PCI Prior CABG Surgery No No No Cerebrovascular Peripheral Artery Chronic Lung On Dialysis Diabetes Disease Disease Disease No No No No No History: Stress Tests Stress or Imaging Studies Performed Yes Standard Exercise Stress Test No Stress Echo No Stress Test SPECT Stress Test SPECT Result Yes Positive Stress Test CMR No Cardiac CTA Coronary Calcium Score No No History: Other Current Smoker No Labs Hgb (g/dl) Hct (%) WBC (l/cumm) Platelets (thousands) 11.60-17.00 35.00-51.00 4.00-11.00 150.00-450.00 12.3 35.7 8.2 149 Glucose (mg/dl) BUN (mg/dl) Creatinine (mg/dl) BUN:Creatinine (1:x) 74.00-106.00 7.00-18.00 0.50-1.30 10.00-20.00 101 26 1.3 20 Na (meq/l) K (meq/l) 136.00-145.00 3.50-5.10 140 4.4 INR (PTT:PT) 0.90-1.10 1 Troponin I (ng/ml) CPK (u/l) CPK-MB (ng/ML) 0.02-0.05 26.00-308.00 0.50-3.60 0.11 134 4.2 Medication Medication Total Dose (Bolus/Oral) Medication Total Dosage/Unit 1% XYLOCAINE 20 mL FENTANYL 25 mcg HYDRALAZINE 10 mg VERSED 0.5 mg Medications (Bolus/Oral) Medication Time Given Dosage/Unit Administered By Reason 1% XYLOCAINE 05/03/2017 4:32:31 PM 20 mL Dimitri Lion 20 mL 1% XYLOCAINE given in lab by Dimitri Lion in Right Groin via Subcutaneous. VERSED 05/03/2017 4:33:37 PM 0.5 mg Hayde Bennett 0.5 mg VERSED given in lab by Hayde Bennett RN in Left Forearm via Peripheral IV. FENTANYL 05/03/2017 4:34:53 PM 25 mcg Hayde Bennett 25 mcg FENTANYL given in lab by Hayde Bennett RN in Left Forearm via Peripheral IV. HYDRALAZINE 05/03/2017 5:05:21 PM 10 mg Hayde Bennett 10 mg HYDRALAZINE given in lab by Hayde Bennett RN in Left Forearm via Peripheral IV. Medication (Drip) Medication Time Given Dosage/Unit Concentration/Unit Diluent (ml) Solutio n IV Solutions 05/03/2017 4:09:37 PM 0 mL (IV) 500 NaCl .9 IV Solutions given in lab by Hayde Bennett RN in Left Hand via Peripheral IV. Pump/Drip Flow = 20 ml/hr using NaCl .9. Initial Case Assessment Cardiovascular HR Rhythm NIBP Chest Pain 62 afib 178/91 0 Edema Present Skin color Skin None Normal Warm Dry Circulatory - Right Pulses Dorsalis Pedis Femoral d 3 Scale (0,1,2,3,4,d) Circulatory - Left Pulses Dorsalis Pedis Femoral d 3 Scale (0,1,2,3,4,d) Circulatory - Lower Extremities Color Lower Right Color Lower Left Normal Normal Neurological State Oriented to time-place- Alert Moves all extremities person Respiration - General Respiration Rate SpO2 (%) (B/min) 20 96 Chronological Log Time Study Chronological Log 16:09:15 Patient arrived via Bed. 16:09:16 Patient Name, D.O.B, / Armband Verified By R.N. 16:09:17 Consent signed by the physician and the patient and verified by the Unit Trust Manager staff. 16:09:18 Pre-op and post- op instructions given; patient acknowledges understanding of instructions. 16:09:19 Verbal Stimulation=2 Physical Stimulation=2 Airway=2 Respiration=2 TOTAL=8. (0=absent, 1=li mited, 2=present) 16:09:20 Presedation assessment performed by Unit Trust Manager RN. 16:09:32 Patient has been NPO for More than 6Hrs. 16:09:32 Skin Breakdown none per pt 16:09:34 Patient Warmer Placed on the Table. 16:09:36 Laura Prominences Protected 16:09:37 A # 20 IV was noted in the Forearm (left). Grade = 0 IV Solutions given in lab by Kenmare, Hayde, RN in Left Hand via Peripheral IV. Pump/Drip Flow = 20 ml/hr using NaCl 16:09:37 .9. 16:09:38 History and physical on the chart or being dictated. Assessment: Initial Case, HR=62 BPM, Rhythm=afib, KBJX=578/91 mmhg, Chest Pain=0, Edema=None, Color=Normal, Skin = Warm, Dry Right Pulses: Johnathon Ped=d, Femoral=3 Left Pulses: Johnathon Ped=d, Femoral=3 16:09:39 Lower Right Extremities: Color=Normal Lower Left Extremities: Color=Normal Neurological: State=Alert, Ox3, HERNANDEZ Respiration: Resp=20 B/min, SpO2=96 % Vitals capture started with the following parameters, Patient=Adult, Interval=5 min, Initial Pr rxtbok=244 mmHg, 16:16:00 Deflation Rate=5 mmHg, Cuff placed on Left Arm 16:17:14 HR=62 bpm, TWIW=341/91 mmhg, SpO2=96.0 %, Resp=19 B/min, Pain=0, Nayely=10, Galaviz=2 16:21:13 Bilateral groins prepped with 2% chlorhexidine, and draped after a 3 minute waiting time. 16:22:20 HR=59 bpm, UGZD=301/93 mmhg, SpO2=97.0 %, Resp=23 B/min, Pain=0, Nayely=10, Galaviz=2 16:25:18 Reference ECG taken 16:26:50 Pressure channel 1 zeroed. 16:26:52 HR=53 bpm, YEQK=374/81 mmhg, SpO2=95.0 %, Resp=12 B/min, Pain=0, Nayely=10, Galaviz=2 Time Out. Correct patient, correct procedure, correct physician, power injector not loaded with contrast with surgical 16:30:52 team present. Time Out Concurred by MD and individual staff in procedure. 16:30:59 Case Start 16:31:49 HR=57 bpm, JVMA=380/85 mmhg, SpO2=96.0 %, Resp=22 B/min, Pain=0, Nayely=10, Galaviz=2 16:32:31 20 mL 1% XYLOCAINE given in lab by Dimitri Lion in Right Groin via Subcutaneous. 16:33:37 0.5 mg VERSED given in lab by Hayde Bennett, RN in Left Forearm via Peripheral IV. 16:34:07 Access site was Right Femoral Artery. A INTRODUCER SET, MICROPUNCTURE, STIFFENED FR 5 was advanced into the Fem Art (right) using the 16:34:13 Percutaneous technique. A SHEATH, FR5 TERUMO (10CM) FR 5 was exchanged in the Fem Art (right). This was necessary in or filomena to 16:34:20 accomodate a larger catheter. 16:34:53 25 mcg FENTANYL given in lab by Hayde Bennett, RN in Left Forearm via Peripheral IV. 16:35:52 An injection in the Fem Art (right) was made through the SHEATH, FR5 TERUMO (10CM) FR 5. A JR 4.0 INFINITI CATHETER FR 5 was advanced over a wire. OMNIPAQUE, 350 MG, 150ML 150ML was us ed for 16:36:05 injections. 16:37:21 HR=57 bpm, AHEB=800/77 mmhg, SpO2=93.0 %, Resp=16 B/min, Pain=0, Nayely=10, Galaviz=2 16:39:50 The RCA was injected and visualized at various angles. OMNIPAQUE, 350 MG, 150ML 150ML used . 16:41:45 HR=61 bpm, OUHM=417/66 mmhg, SpO2=91.0 %, Resp=15 B/min, Pain=0, Nayely=10, Galaviz=2 After removing the current catheter a JL 4.0 DXTERITY CATHETER FR 5 was advanced over a WIRE, 3 MMJ .035 180CM 16:42:05 180CM. 16:43:44 The LCA was injected and visualized at various angles. OMNIPAQUE, 350 MG, 150ML 150ML used . 16:47:31 HR=58 bpm, WEKM=726/80 mmhg, SpO2=92.0 %, Resp=15 B/min, Pain=0, Nayely=10, Galaviz=2 16:51:41 HR=69 bpm, ONLW=678/90 mmhg, SpO2=92.0 %, Resp=17 B/min, Pain=0, Nayely=10, Galaviz=2 After removing the current catheter a PIGTAIL ANG. CATHETER FR 5 was advanced over a WIRE, 3MMJ .035 180CM 16:52:17 180CM. Recorded Pressure: LV, HR=68, Condition=Condition 1 16:54:26 (Left Ventricle) LV 199/9/13 Recorded Pressure: LV, Ao, HR=68, Condition=Condition 1 16:54:43 (Left Ventricle) LV 194/11/15, (Aorta) Ao 204/64/128 16:55:42 Catheter was removed 16:55:45 Case End 16:56:25 Activated Clotting Time Drawn 16:57:31 HR=69 bpm, MCSN=740/85 mmhg, SpO2=96.0 %, Resp=19 B/min, Pain=0, Nayely=10, Galaviz=2 17:00:46 ACT (Normal Range 90-180) = 124 17:01:45 HR=67 bpm, OOUL=433/80 mmhg, SpO2=96.0 %, Resp=28 B/min, Pain=0, Nayely=10, Galaviz=2 17:02:16 Catheter(s) removed without difficulty 17:02:40 Sterile dressing applied to site 17:02:42 No case complications noted. 17:02:43 Cine recording checked. 17:03:07 Bedside Report will be given. 17:03:12 A Left Heart Cath was performed. 17:05:21 10 mg HYDRALAZINE given in lab by Hayde Bennett RN in Left Forearm via Peripheral IV. 17:09:[facility] - Contrast Media Used In Study Contrast Total Opened (mL) Total Used (mL) Total Wasted (mL) Omnipaque 50 50 0 End Study - Maximum Contrast Load Max Contrast Load (mL) 233.0 End Study - Radiation Exposure Fluoro Time (minutes) 5.5 End Study - Patient Disposition Complications Transferred To Interventional Outcome No Unit Trust Manager Holding No attempt made
[2017-05-03] MEDS ORDERED: MISC INFORMATION XX ONE (17:30)
[2017-05-03] MEDS: MORPHINE SULFATE 4 MG/ML INJ IV PUSH PRN ×2 (18:42→21:15)
[2017-05-03] MEDS ORDERED: ISOSORBIDE MONONITRATE 30 MG TAB PO ONE (18:45)
--- NOTE | 2017-05-03 21:02 | PD.CARD.PN ---
Subjective Subjective Remarks Patient seen earlier around 6pm post-catheterization Doing well, mild chest pain, given nitro SL and Imdur as he did not receive it this morning Objective Medications Current Medications Medications (Trade) Dose Ordered Sig/Ariel Route Start Time Stop Time Status Last Admin (Nitrostat Sl) 0.4 mg Q5M PRN SL 05/01/17 21:15 05/03/17 20:46 (NS Flush) 2 ml BID IV FLUSH 05/02/17 09:00 (NS Flush) 2 ml UNSCH PRN IV FLUSH 05/02/17 00:30 (Morphine Inj) 2 mg Q30M PRN IV PUSH 05/02/17 00:30 05/03/17 18:42 (Zofran Inj) 4 mg Q6H PRN IV PUSH 05/02/17 00:30 (Sinemet 25-100 Mg) 1 tab 5 TIMES A DAY PO 05/02/17 06:00 05/03/17 18:43 (Synthroid) 100 mcg DAILY@0600 PO 05/02/17 06:00 05/03/17 05:15 (Bystolic) 10 mg BID PO 05/02/17 09:00 05/03/17 08:41 (Pravachol) 10 mg DAILY PO 05/02/17 09:00 05/03/17 08:41 (Aldactone) 25 mg DAILY PO 05/02/17 09:00 Future Hold 05/02/17 09:01 (Diovan) 320 mg DAILY PO 05/02/17 09:00 05/03/17 08:41 Sodium Chloride 1,000 ml @ 42 mls/hr [id number] IV 05/02/17 11:00 05/02/17 12:49 (Aspirin Chew) 81 mg DAILY CHEW 05/03/17 09:00 05/03/17 08:41 (Restoril) 15 mg HS PRN PO 05/03/17 11:30 (Norvasc) 5 mg DAILY PO 05/04/17 09:00 (Imdur) 60 mg DAILY@07 PO 05/04/17 07:00 Vital Signs / I&O Vital Signs Date Time Temp Pulse Resp B/P (MAP) Pulse Ox O2 Delivery O2 Flow Rate FiO2 05/03/17 20:55 Nasal Cannula 2.00 05/03/17 20:55 97.0 74 18 105/58 (74) 96 05/03/17 18:50 126/67 (86) 05/03/17 17:20 96 Room Air 05/03/17 12:08 98.1 62 20 177/75 (109) 98 05/03/17 09:47 96 21 05/03/17 08:08 97.3 58 20 158/70 (99) 96 05/03/17 08:00 Room Air 05/03/17 08:00 50 05/03/17 04:03 98.2 57 16 160/69 (99) 96 05/03/17 04:03 Room Air 05/02/17 23:22 Room Air 05/02/17 23:22 98.0 58 16 157/71 (99) 93 I/O 05/02/17 05/02/17 05/02/17 05/03/17 05/03/17 05/03/17 07:00 15:00 23:00 07:00 15:00 23:00 Intake Total 0 ml 380 ml 1233 ml 0 ml Output Total 250 ml 1000 ml 950 ml 800 ml Balance -250 ml -620 ml 283 ml -800 ml Intake Oral 0 ml 380 ml 630 ml 0 ml IV Total 603 ml Output Urine Total 250 ml 1000 ml 950 ml 800 ml # Bowel Movements 0 1 0 0 Physical Exam GENERAL: NAD, AAOx3 SKIN: Warm and dry. HEAD: Atraumatic. Normocephalic. EYES: Pupils equal and round. No scleral icterus. No injection or drainage. ENT: No nasal bleeding or discharge. Mucous membranes pink and moist. NECK: Trachea midline. No JVD. CARDIOVASCULAR: Regular rate and rhythm. RESPIRATORY: No accessory muscle use. Clear to auscultation. Breath sounds equal bilaterally. GASTROINTESTINAL: Abdomen soft, non-tender, nondistended. Hepatic and splenic margins not palpable. MUSCULOSKELETAL: Extremities without clubbing, cyanosis, or edema. No obvious deformities. NEUROLOGICAL: Awake and alert. No obvious cranial nerve deficits. Motor grossly within normal limits. Five out of 5 muscle strength in the arms and legs. Normal speech. PSYCHIATRIC: Appropriate mood and affect; insight and judgment normal. Laboratory Laboratory Tests Test 05/03/17 07:10 Activated Partial Thromboplast Time 42.9 SEC Blood Urea Nitrogen 21 MG/DL Creatinine 1.27 MG/DL Random Glucose 97 MG/DL Calcium Level 8.8 MG/DL Sodium Level 137 MEQ/L Potassium Level 4.0 MEQ/L Chloride Level 105 MEQ/L Carbon Dioxide Level 22.8 MEQ/L Anion Gap 9 MEQ/L Estimat Glomerular Filtration Rate 54 ML/MIN Assessment and Plan Problem List: (1) CAD (coronary artery disease) ICD Codes: I25.10 - Atherosclerotic heart disease of [place] coronary artery without angina pectoris (2) NSTEMI (non-ST elevated myocardial infarction) ICD Codes: I21.4 - Non-ST elevation (NSTEMI) myocardial infarction Status: Acute (3) Cardiomyopathy ICD Codes: I42.9 - Cardiomyopathy, unspecified Status: Chronic (4) Hypertension ICD Codes: I10 - Hypertension Status: Chronic (5) CHF (congestive heart failure) ICD Codes: I50.9 - Heart failure, unspecified Status: Acute Assessment and Plan 1) NSTEMI/MVCAD Extensive disease of the RCA with long area of calcification, as well as LAD disease Will have CT surgery see him for consideration of 2 vessel CABG 2) If turned down for surgery, discussed with him about attempting further medical management due to the extent of disease Add Imdur 60mg daily and Norvasc 5mg daily Can decrease Valsartan and Spirolactone for further anti-anginal medications No Metoprolol due to baseline bradycardia 3) Needs further blood pressure control Dimitri Lion DO May 03, 2017 21:01
[2017-05-03] MEDS: SODIUM CHLORIDE 0.9% FLUSH 10 ML FLUSH IV FLUSH SCH (21:06)
[2017-05-04] VITALS (9 sets, daily range): BP systolic 81–106; BP diastolic 46–59; PULSE 58–69; RESP 16–20; TEMP 97.1–98; O2SAT 95–100
[2017-05-04] MEDS: SODIUM CHLOR 0.9% 1000 ML INJ 1,000 ML IV SCH (02:27)
[2017-05-04] MEDS: CARBIDOPA/LEVODOPA 25 MG/100 MG TAB PO SCH ×3 (06:01→14:28)
[2017-05-04] MEDS: LEVOTHYROXINE SODIUM 100 MCG TAB PO SCH (06:01)
[2017-05-04] MEDS: ISOSORBIDE MONONITRATE 60 MG TAB PO SCH (06:01)
--- NOTE | 2017-05-04 07:29 | MA ---
cc: DIMITRI POWELL DO DATE OF PROCEDURE May 03, 2017 PROCEDURE Left heart catheterization, coronary angiogram, moderate sedation 22 minutes. PREPROCEDURE DIAGNOSES Unstable angina, elevated troponin, accelerated hypertension. POSTPROCEDURE DIAGNOSIS Multivessel CAD. MEDICATIONS 1. Versed 0.5 mg. 2. Fentanyl 25 mcg. 3. Hydralazine 10 mg. CONTRAST USED 50 cc. FLUOROSCOPY 5.5 minutes. MODERATE SEDATION 22 minutes. ESTIMATED BLOOD LOSS 10 cc. PROCEDURAL SUMMARY Bishop Ayala is a pleasant 86-year-old male whom I see in the office and presented to [facility] due to chest pain. He was found to have a mildly elevated troponin and along with his symptoms it was felt necessary that he needed to undergo cardiac catheterization. The risks, benefits and alternatives were explained to him and he consented as such. He was brought to the lab and prepped in the usual sterile fashion. The right femoral artery was accessed using a modified Seldinger technique and placement of a 5-Malay sheath. This was easily aspirated and flushed. A JR-4 was advanced over a J-wire to the ascending aorta and used for selective angiography of the right coronary artery system. This was exchanged out for a JL-4 which was used for selective angiography of the left coronary artery system. The JL-4 was exchanged out for a pigtail which was used across the aortic valve for measurement of left ventricular pressure. This was pulled back across the aortic valve showing no significant gradient of aortic stenosis. The pigtail was removed. The sheath was sutured in place and the patient was sent to the DOC unit for a plan to pull the sheath and pressure held for hemostasis. The patient left the cardiac cath lab manager cardiovascularly stable. FINDINGS LEFT MAIN: Normal-sized vessel with adequate reflux and bifurcates into an LAD and circumflex. LAD: Normal-sized vessel with a 50% stenosis in the proximal portion and 70% stenosis of the midportion and a 50% stenosis of the [id number] portion. It gives off two diagonals with the first having 30% ostial stenosis and the second being a small vessel with no disease. LEFT CIRCUMFLEX: Normal-sized vessel with a 50% lesion in the proximal portion. It gives off three obtuse marginals with no significant disease. RCA: Normal-sized vessel with extensive disease throughout the proximal mid and distal portion with extensive calcification. LVEDP 15. IMPRESSIONS 1. Chest pain concerning for coronary insufficiency. 2. Elevated troponin. 3. Accelerated hypertension. 4. 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 RECOMMENDATIONS 1. Mr. Ayala presented with angina and a mildly elevated troponin and was found to have multivessel coronary artery disease. 2. Due to the extent of the disease in the RCA as well as the amount of calcification, I feel that overall this would be a higher risk coronary intervention. 3. This was discussed with him and we will have Surgery see him for consideration of two-vessel bypass. 4. If turned down for surgery, I discussed with him further about high-risk PCI and that we should attempt as best we can medical management before even considering it. 5. We will add Norvasc and Imdur to his current regimen as well as nitro sublingual. 6. If the blood pressure is unable to tolerate all these medications, spironolactone and valsartan can be decreased. 7. He is unable to be on a chronotropic beta-anirudh due to his baseline bradycardia and so he will continue on Bystolic for blood pressure management. 8. Further recommendations will be made based on the hospital course. This was discussed with the patient and his caregivers and they are in agreement. Thank you for allowing me to see Bishop Ayala. If there are any questions, please do not hesitate to call. Dimitri Powell DO VGP/SSB /9:45 PM /7:24 AM
[2017-05-04] MEDS: amLODIPine BESYLATE 5 MG TAB PO SCH (09:00)
[2017-05-04] MEDS: VALSARTAN 160 MG TAB PO SCH (09:00)
[2017-05-04] MEDS: SODIUM CHLORIDE 0.9% FLUSH 10 ML FLUSH IV FLUSH SCH ×2 (09:00→20:45)
[2017-05-04] MEDS: NEBIVOLOL 10 MG TAB PO SCH (09:00)
[2017-05-04] MEDS: NITROGLYCERIN 0.4 MG SL 25 TABS/BTL SL PRN (09:09)
[2017-05-04] MEDS: ASPIRIN 81 MG CHEW TAB CHEW SCH (09:10)
[2017-05-04] MEDS: PRAVASTATIN SOD 10 MG TAB PO SCH (09:11)
[2017-05-04 10:28] LABS: HEMATOCRIT 35.3 % (39.0-51.0); MEAN CELL VOLUME 94.1 FL (80.0-100.0); MEAN CORPUSCULAR HEMOGLOBIN 32.3 PG (27.0-34.0); MEAN CORPUSCULAR HGB CONC 34.4 % (32.0-36.0); PLATELET COUNT 182 TH/MM3 (150-450); RED BLOOD COUNT 3.75 MIL/MM3 (4.50-5.90); RED CELL DISTRIBUTION WIDTH 13.6 % (11.6-17.2); REVIEW FLAG FINAL; WHITE BLOOD COUNT 12.4 TH/MM3 (4.0-11.0)
[2017-05-04 10:53] LABS: BICARBONATE 25.2 MEQ/L (21.0-32.0); POTASSIUM 4.1 MEQ/L (3.5-5.1)
--- NOTE | 2017-05-04 12:54 | HHI.PR ---
Subjective Remarks Follow-up for nstemi Elissa stated that he had chest pain yesterday that resolved. He stated that he does have some chest pain type is very mild. Deny nausea vomiting. He has no other complaints. His granddaughter is at the bedside during the interview. Patient blood pressure has been running low with a systolic blood pressure in the 80s. he denied any SOB, palpitations, lightheadedness or dizziness. Objective Vitals Vital Signs Date Time Temp Pulse Resp B/P (MAP) Pulse Ox O2 Delivery O2 Flow Rate FiO2 05/04/17 12:00 97.6 67 20 89/52 (64) 95 81/46 (58) 05/04/17 11:55 100 Nasal Cannula 2.00 05/04/17 11:53 62 05/04/17 08:00 97.9 58 20 106/59 (75) 100 95/51 (66) 05/04/17 03:50 97.4 61 16 104/52 (69) 100 05/04/17 03:50 Nasal Cannula 2.00 05/03/17 23:35 97.3 57 16 93/51 (65) 98 05/03/17 23:35 Nasal Cannula 2.00 05/03/17 21:18 Nasal Cannula 2.00 05/03/17 21:18 66 18 136/68 (90) 97 05/03/17 21:09 77 102/55 (71) 05/03/17 20:55 Nasal Cannula 2.00 05/03/17 20:55 97.0 74 18 105/58 (74) 96 05/03/17 20:43 79 121/63 (82) 05/03/17 20:28 96 21 05/03/17 20:07 86 05/03/17 20:00 97.6 85 20 168/80 (109) 99 05/03/17 18:50 126/67 (86) 05/03/17 17:20 96 Room Air I/O 05/03/17 05/03/17 05/03/17 05/04/17 05/04/17 05/04/17 07:00 15:00 23:00 07:00 15:00 23:00 Intake Total 1233 ml 0 ml 742 ml Output Total 950 ml 800 ml 350 ml 100 ml Balance 283 ml -800 ml 392 ml -100 ml Intake Oral 630 ml 0 ml 240 ml IV Total 603 ml 502 ml Output Urine Total 950 ml 800 ml 350 ml 100 ml # Bowel Movements 0 0 0 Result Diagram: 05/04/1794605/04/17946 Objective Remarks GENERAL: in NAD CARDIOVASCULAR: Regular rate and rhythm without murmurs, gallops, or rubs. RESPIRATORY: Breath sounds equal bilaterally. No accessory muscle use. GASTROINTESTINAL: Abdomen soft, non-tender, nondistended. MUSCULOSKELETAL: No cyanosis, or edema. BACK: Nontender without obvious deformity. No CVA tenderness. Procedures awake and alert, oriented x 3 anicteric lungs- no rales regular rhythm abdomen soft, nontender extremities no edema neuro exam - unremarkable Medications and IVs Current Medications Sodium Chloride (NS Flush) 2 ml UNSCH PRN IVF FLUSH AFTER USING IV ACCESS; Start 05/01/17 at 20:15; Stop 05/02/17 at 11:01; Status DC Nitroglycerin (Nitrostat Sl) 0.4 mg Q5M PRN SL CHEST PAIN Last administered on 05/04/17 09:09; Start 05/01/17 at 21:15 Aspirin (Aspirin Chew) 243 mg ONCE ONCE CHEW Last administered on 05/01/17 21:48; Start 05/01/17 at 21:45; Stop 05/01/17 at 21:46; Status DC Heparin Sodium (Porcine) (Heparin Inj) 4,000 units ONCE ONCE IV Last administered on 05/01/17 21:49; Start 05/01/17 at 21:45; Stop 05/01/17 at 21 :46; Status DC Heparin Sodium/ Dextrose 250 ml @ 9 mls/hr TITRATE PRN IV Coagulation Management Last administered on 05/02/17 23:23; Start 05/01/17 at 22:00; Stop 05/03/17 at 17:40; Status DC Nitroglycerin (Nitroglycerin 2% Oint) 1 inch ONCE ONCE TOPICAL Last administered on 05/01/17 22:19; Start 05/01/17 at 22:15; Stop 05/01/17 at 22 :16; Status DC Sodium Chloride (NS Flush) 2 ml BID IV FLUSH Last administered on 05/03/17 21 :06; Start 05/02/17 at 09:00 Sodium Chloride (NS Flush) 2 ml UNSCH PRN IV FLUSH FLUSH AFTER USING IV ACCESS ; Start 05/02/17 at 00:30 Morphine Sulfate (Morphine Inj) 2 mg Q30M PRN IV PUSH CHEST PAIN Last administered on 05/03/17 21:15; Start 05/02/17 at 00:30 Ondansetron HCl (Zofran Inj) 4 mg Q6H PRN IV PUSH NAUSEA OR VOMITING Last administered on 05/03/17 21:03; Start 05/02/17 at 00:30 Carbidopa/Levodopa (Sinemet 25-100 Mg) 1 tab 5 TIMES A DAY PO Last administered on 05/04/17 09:11; Start 05/02/17 at 06:00; Stop 05/04/17 at 12 :14; Status DC Levothyroxine Sodium (Synthroid) 100 mcg DAILY@0600 PO Last administered on 06:01; Start 05/02/17 at 06:00 Nebivolol (Bystolic) 10 mg BID PO Last administered on 05/03/17 21:04; Start 05/02/17 at 09:00 Pravastatin Sodium (Pravachol) 10 mg DAILY PO Last administered on 05/04/17 09:11; Start 05/02/17 at 09:00 Spironolactone (Aldactone) 25 mg DAILY PO Last administered on 05/02/17 09:01 ; Start 05/02/17 at 09:00; Status Future Hold Valsartan (Diovan) 320 mg DAILY PO Last administered on 05/03/17 08:41; Start 05/02/17 at 09:00 Sodium Chloride 1,000 ml @ 42 mls/hr [id number] IV Last administered on 02:27; Start 05/02/17 at 11:00 Aspirin (Aspirin Chew) 81 mg DAILY CHEW Last administered on 05/04/17 09:10; Start 05/03/17 at 09:00 Temazepam (Restoril) 15 mg HS PRN PO SLEEP; Start 05/03/17 at 11:30 Heparin Sodium/ Sodium Chloride 500 ml @ As Directed STK-MED ONCE .ROUTE Last administered on 05/03/17 16:17; Start 05/03/17 at 16:17; Stop 05/03/17 at 16 :18; Status DC Heparin Sodium (Porcine) (Heparin Inj) 10,000 units STK-MED ONCE .ROUTE ; Start 05/03/17 at 16:17; Stop 05/03/17 at 16:18; Status DC Nitroglycerin 5 ml @ As Directed STK-MED ONCE .ROUTE ; Start 05/03/17 at 16:17 ; Stop 05/03/17 at 16:18; Status DC Midazolam HCl (Versed Inj) 2 mg STK-MED ONCE .ROUTE Last administered on 16:33; Start 05/03/17 at 16:31; Stop 05/03/17 at 16:32; Status DC Fentanyl Citrate (fentaNYL INJ) 100 mcg STK-MED ONCE .ROUTE Last administered on 05/03/17 16:34; Start 05/03/17 at 16:31; Stop 05/03/17 at 16:32; Status DC Hydralazine HCl (Apresoline Inj) 20 mg STK-MED ONCE .ROUTE Last administered on 05/03/17 17:05; Start 05/03/17 at 16:59; Stop 05/03/17 at 17:00; Status DC Miscellaneous Information 1 ONCE ONCE XX ; Start 05/03/17 at 17:30; Stop at 17:42; Status DC Amlodipine Besylate (Norvasc) 5 mg DAILY PO ; Start 05/04/17 at 09:00 Isosorbide Mononitrate (Imdur) 60 mg DAILY@07 PO Last administered on 06:01; Start 05/04/17 at 07:00 Isosorbide Mononitrate (Imdur) 30 mg ONCE ONCE PO Last administered on 18:55; Start 05/03/17 at 18:45; Stop 05/03/17 at 18:46; Status DC Iohexol (OMNIPAQUE 350 INJ (Plastic Extrusion Operator)) 50 ml STK-MED ONCE OTHER ; Start at 16:09; Stop 05/04/17 at 08:06; Status DC Carbidopa/Levodopa (Sinemet 25-100 Mg) 1 tab DAILY PO ; Start 05/05/17 at 07:00 ; Status UNV Carbidopa/Levodopa (Sinemet 25-100 Mg) 3 tab DAILY PO ; Start 05/05/17 at 11:30 ; Status UNV Carbidopa/Levodopa (Sinemet 25-100 Mg) 3 tab DAILY PO ; Start 05/04/17 at 14:00 ; Status UNV Carbidopa/Levodopa (Sinemet 25-100 Mg) 2 tab Q12HR PO ; Start 05/04/17 at 17:30 ; Status UNV Carbidopa/Levodopa (Sinemet 25-100 Mg) 2 tab Q12HR PO ; Start 05/04/17 at 21:00 ; Status UNV A/P Assessment and Plan 86-year-old male with past medical history for coronary artery disease, hypertension, hyperlipidemia and Parkinson's disease presents the emergency department with chest pain. 1. NSTEMI -Initial troponin 0.13, EKG showed T-wave inversions in V5 through V6 without ST segment elevations or depressions. -Cardiac catheterization or multivessel disease. Multivessel surgeon was consulted patient on a candidate for surgery. -Discussed with Dr. Lion who stated that patient is also not a good candidate for high risk PCI. Recommend medical management. -Per Dr. Lion will adjust his blood pressure medication since he is hypotensive at the moment. Hypertension -Now hypotensive. See treatment as above. Parkinson's disease -Corrected patient home dosage per nurse. -I spoke to the pharmacist to also confirm patient's dose of Sinemet. Hyperlipidemia -Continue home statin GERD -Continue PPI CKD stage -Continue current regimen. [facility]omin[facility] - Belsamra not available- -daughter states on Resoril in the past and helped- hypothyroidism- on synthroid Discharge Planning If patient is medically stable and improvement in blood pressure possible discharge tomorrow. Jessica Green MD May 04, 2017 12:54
--- NOTE | 2017-05-04 13:50 | PD.CARD.PN ---
Subjective Subjective Remarks Doing better today Small episode of short chest pain this morning Last night long episode of chest pain after catheterization Objective Medications Current Medications Medications (Trade) Dose Ordered Sig/Ariel Route Start Time Stop Time Status Last Admin (Nitrostat Sl) 0.4 mg Q5M PRN SL 05/01/17 21:15 05/04/17 09:09 (NS Flush) 2 ml BID IV FLUSH 05/02/17 09:00 05/03/17 21:06 (NS Flush) 2 ml UNSCH PRN IV FLUSH 05/02/17 00:30 (Morphine Inj) 2 mg Q30M PRN IV PUSH 05/02/17 00:30 05/03/17 21:15 (Zofran Inj) 4 mg Q6H PRN IV PUSH 05/02/17 00:30 05/03/17 21:03 (Synthroid) 100 mcg DAILY@0600 PO 05/02/17 06:00 05/04/17 06:01 (Bystolic) 10 mg BID PO 05/02/17 09:00 05/03/17 21:04 (Pravachol) 10 mg DAILY PO 05/02/17 09:00 05/04/17 09:11 (Aldactone) 25 mg DAILY PO 05/02/17 09:00 Future Hold 05/02/17 09:01 (Diovan) 320 mg DAILY PO 05/02/17 09:00 05/03/17 08:41 Sodium Chloride 1,000 ml @ 42 mls/hr [id number] IV 05/02/17 11:00 05/04/17 02:27 (Aspirin Chew) 81 mg DAILY CHEW 05/03/17 09:00 05/04/17 09:10 (Restoril) 15 mg HS PRN PO 05/03/17 11:30 (Norvasc) 5 mg DAILY PO 05/04/17 09:00 (Imdur) 60 mg DAILY@07 PO 05/04/17 07:00 05/04/17 06:01 (Sinemet 25-100 Mg) 1 tab DAILY@0700 PO 05/05/17 07:00 (Sinemet 25-100 Mg) 3 tab DAILY@1130 PO 05/05/17 11:30 (Sinemet 25-100 Mg) 3 tab DAILY@1400 PO 05/04/17 14:00 (Sinemet 25-100 Mg) 2 tab DAILY@1730 PO 05/04/17 17:30 (Sinemet 25-100 Mg) 2 tab DAILY@2100 PO 05/04/17 21:00 Vital Signs / I&O Vital Signs Date Time Temp Pulse Resp B/P (MAP) Pulse Ox O2 Delivery O2 Flow Rate FiO2 05/04/17 12:00 97.6 67 20 89/52 (64) 95 81/46 (58) 05/04/17 11:55 100 Nasal Cannula 2.00 05/04/17 11:53 62 05/04/17 08:00 97.9 58 20 106/59 (75) 100 95/51 (66) 05/04/17 03:50 97.4 61 16 104/52 (69) 100 05/04/17 03:50 Nasal Cannula 2.00 05/03/17 23:35 97.3 57 16 93/51 (65) 98 05/03/17 23:35 Nasal Cannula 2.00 05/03/17 21:18 Nasal Cannula 2.00 05/03/17 21:18 66 18 136/68 (90) 97 05/03/17 21:09 77 102/55 (71) 05/03/17 20:55 Nasal Cannula 2.00 05/03/17 20:55 97.0 74 18 105/58 (74) 96 05/03/17 20:43 79 121/63 (82) 05/03/17 20:28 96 21 05/03/17 20:07 86 05/03/17 20:00 97.6 85 20 168/80 (109) 99 05/03/17 18:50 126/67 (86) 05/03/17 17:20 96 Room Air I/O 05/03/17 05/03/17 05/03/17 05/04/17 05/04/17 05/04/17 07:00 15:00 23:00 07:00 15:00 23:00 Intake Total 1233 ml 0 ml 742 ml Output Total 950 ml 800 ml 350 ml 100 ml Balance 283 ml -800 ml 392 ml -100 ml Intake Oral 630 ml 0 ml 240 ml IV Total 603 ml 502 ml Output Urine Total 950 ml 800 ml 350 ml 100 ml # Bowel Movements 0 0 0 Physical Exam GENERAL: NAD, AAOx3 SKIN: Warm and dry. HEAD: Atraumatic. Normocephalic. EYES: Pupils equal and round. No scleral icterus. No injection or drainage. ENT: No nasal bleeding or discharge. Mucous membranes pink and moist. NECK: Trachea midline. No JVD. CARDIOVASCULAR: Regular rate and rhythm. RESPIRATORY: No accessory muscle use. Clear to auscultation. Breath sounds equal bilaterally. GASTROINTESTINAL: Abdomen soft, non-tender, nondistended. Hepatic and splenic margins not palpable. MUSCULOSKELETAL: Extremities without clubbing, cyanosis, or edema. No obvious deformities. Right femoral no hematoma/bruit. NEUROLOGICAL: Awake and alert. No obvious cranial nerve deficits. Motor grossly within normal limits. Five out of 5 muscle strength in the arms and legs. Normal speech. PSYCHIATRIC: Appropriate mood and affect; insight and judgment normal. Laboratory Laboratory Tests Test 05/04/17 09:47 White Blood Count 12.4 TH/MM3 Red Blood Count 3.75 MIL/MM3 Hemoglobin 12.1 GM/DL Hematocrit 35.3 % Mean Corpuscular Volume 94.1 FL Mean Corpuscular Hemoglobin 32.3 PG Mean Corpuscular Hemoglobin Concent 34.4 % Red Cell Distribution Width 13.6 % Platelet Count 182 TH/MM3 Mean Platelet Volume 9.8 FL Blood Urea Nitrogen 25 MG/DL Creatinine 1.63 MG/DL Random Glucose 116 MG/DL Calcium Level 8.2 MG/DL Sodium Level 139 MEQ/L Potassium Level 4.1 MEQ/L Chloride Level 105 MEQ/L Carbon Dioxide Level 25.2 MEQ/L Anion Gap 9 MEQ/L Estimat Glomerular Filtration Rate 40 ML/MIN Assessment and Plan Problem List: (1) CAD (coronary artery disease) ICD Codes: I25.10 - Atherosclerotic heart disease of [place] coronary artery without angina pectoris (2) NSTEMI (non-ST elevated myocardial infarction) ICD Codes: I21.4 - Non-ST elevation (NSTEMI) myocardial infarction Status: Acute (3) Cardiomyopathy ICD Codes: I42.9 - Cardiomyopathy, unspecified Status: Chronic (4) Hypertension ICD Codes: I10 - Hypertension Status: Chronic (5) CHF (congestive heart failure) ICD Codes: I50.9 - Heart failure, unspecified Status: Acute Assessment and Plan 1) NSTEMI/MVCAD Extensive disease of the RCA with long area of calcification, as well as LAD disease CT surgery saw him for consideration of 2 vessel CABG, extremely high risk 2) If turned down for surgery, discussed with him about attempting further medical management due to the extent of disease Add Imdur 60mg daily and Norvasc 5mg daily Stopped Valsartan and Spirolactone for further anti-anginal medications No Metoprolol due to baseline bradycardia 3) Overall needs blood pressure control Dimitri Lion DO May 04, 2017 13:50
--- NOTE | 2017-05-04 13:51 | PD.CAR.PN ---
CVT Progress Note Subjective/Hospital Course: RISK SCORES About the STS Risk Calculator Procedure: CAB Only Risk of Mortality: 7.551% Morbidity or Mortality: 32.697% Long Length of Stay: 18.011% Short Length of Stay: 15.197% Permanent Stroke: 1.939% Prolonged Ventilation: 21.1% DSW Infection: 0.518% Renal Failure: 12.381% Reoperation: 11.961% Objective: Vital Signs Date Time Temp Pulse Resp B/P (MAP) Pulse Ox O2 Delivery O2 Flow Rate FiO2 05/04/17 12:00 97.6 67 20 89/52 (64) 95 81/46 (58) 05/04/17 11:55 100 Nasal Cannula 2.00 05/04/17 11:53 62 05/04/17 08:00 97.9 58 20 106/59 (75) 100 95/51 (66) 05/04/17 03:50 97.4 61 16 104/52 (69) 100 05/04/17 03:50 Nasal Cannula 2.00 05/03/17 23:35 97.3 57 16 93/51 (65) 98 05/03/17 23:35 Nasal Cannula 2.00 05/03/17 21:18 Nasal Cannula 2.00 05/03/17 21:18 66 18 136/68 (90) 97 05/03/17 21:09 77 102/55 (71) 05/03/17 20:55 Nasal Cannula 2.00 05/03/17 20:55 97.0 74 18 105/58 (74) 96 05/03/17 20:43 79 121/63 (82) 05/03/17 20:28 96 21 05/03/17 20:07 86 05/03/17 20:00 97.6 85 20 168/80 (109) 99 05/03/17 18:50 126/67 (86) 05/03/17 17:20 96 Room Air Labs: Laboratory Tests Test 05/04/17 09:47 White Blood Count 12.4 TH/MM3 (4.0-11.0) Red Blood Count 3.75 MIL/MM3 (4.50-5.90) Hemoglobin 12.1 GM/DL (13.0-17.0) Hematocrit 35.3 % (39.0-51.0) Mean Corpuscular Volume 94.1 FL (80.0-100.0) Mean Corpuscular Hemoglobin 32.3 PG (27.0-34.0) Mean Corpuscular Hemoglobin Concent 34.4 % (32.0-36.0) Red Cell Distribution Width 13.6 % (11.6-17.2) Platelet Count 182 TH/MM3 (150-450) Mean Platelet Volume 9.8 FL (7.0-11.0) Blood Urea Nitrogen 25 MG/DL (7-18) Creatinine 1.63 MG/DL (0.60-1.30) Random Glucose 116 MG/DL (74-106) Calcium Level 8.2 MG/DL (8.5-10.1) Sodium Level 139 MEQ/L (136-145) Potassium Level 4.1 MEQ/L (3.5-5.1) Chloride Level 105 MEQ/L (98-107) Carbon Dioxide Level 25.2 MEQ/L (21.0-32.0) Anion Gap 9 MEQ/L (5-15) Estimat Glomerular Filtration Rate 40 ML/MIN (>89) Result Diagram: 05/04/17 0947 05/04/17 0947 (1) CAD (coronary artery disease) (2) NSTEMI (non-ST elevated myocardial infarction) (3) Cardiomyopathy (4) Hypertension (5) CHF (congestive heart failure) Sanjuanita Shi May 04, 2017 13:51
[2017-05-04] MEDS ORDERED: CARBIDOPA/LEVODOPA 25 MG/100 MG TAB PO SCH ×2 (17:30→21:00)
[2017-05-05] MEDS: SODIUM CHLOR 0.9% 1000 ML INJ 1,000 ML IV SCH (02:54)
[2017-05-05 03:45] VITALS: BP 144/70; PULSE 63; RESP 18; TEMP 98.3; O2SAT 99
[2017-05-05] MEDS: NITROGLYCERIN 0.4 MG SL 25 TABS/BTL SL PRN ×2 (04:00→05:45)
[2017-05-05 06:10] LABS: HEMATOCRIT 39.7 % (39.0-51.0); MEAN CELL VOLUME 95.1 FL (80.0-100.0); MEAN CORPUSCULAR HEMOGLOBIN 33.2 PG (27.0-34.0); MEAN CORPUSCULAR HGB CONC 34.9 % (32.0-36.0); PLATELET COUNT 160 TH/MM3 (150-450); RED BLOOD COUNT 4.18 MIL/MM3 (4.50-5.90); RED CELL DISTRIBUTION WIDTH 13.8 % (11.6-17.2); REVIEW FLAG FINAL; WHITE BLOOD COUNT 10.8 TH/MM3 (4.0-11.0)
[2017-05-05] MEDS: ISOSORBIDE MONONITRATE 60 MG TAB PO SCH (06:17)
[2017-05-05] MEDS: LEVOTHYROXINE SODIUM 100 MCG TAB PO SCH (06:17)
[2017-05-05 06:37] LABS: BICARBONATE 24.4 MEQ/L (21.0-32.0); POTASSIUM 4.2 MEQ/L (3.5-5.1)
[2017-05-05] MEDS ORDERED: CARBIDOPA/LEVODOPA 25 MG/100 MG TAB PO SCH ×2 (07:00→11:30)
--- NOTE | 2017-05-05 07:43 | MB ---
cc: CLARENCE LESTER DATE OF CONSULTATION: 05/04/2017 1928 HISTORY OF PRESENT ILLNESS A 86-year-old male, patient of Dr. Lion, who was known to his office, was originally seen in March as per Dr. Lion's note for chest discomfort, underwent stress testing which showed small area of ischemia and apparently they discussed the options with the patient and his daughter and felt like based on his age and comorbidities, they decided to treat him medically. He has noticed having increasing pain, was recently called in some nitro and Imdur. He was seen by Dr. Lion yesterday and they decided the patient agreed to undergo cardiac catheterization. Apparently he went home and started having some more significant discomfort and he called EMS. His lab work did show a troponin highest at 0.15. His EKG showed sinus rhythm with PACs, nonspecific ST changes. We were consulted to evaluate for coronary artery bypass grafting. PAST MEDICAL HISTORY 1. Hypertension. 2. Hyperlipidemia. 3. Parkinson's disease. 4. Hiatal hernia. 5. Gastroesophageal reflux disease. PAST SURGICAL HISTORY 1. Bilateral hip replacement. 2. Right shoulder surgery. 3. Left inguinal hernia repair. 4. Tonsillectomy. ALLERGIES No known allergies. MEDICATIONS Home medications include: 1. Pravastatin. 2. Imdur. 3. Nitro. 4. Bystolic. 5. Diovan. 6. Aldactone. 7. Aspirin. 8. Sinemet. 9. Synthroid. FAMILY HISTORY Noncontributory. SOCIAL HISTORY The patient apparently lives alone. He uses a walker to ambulate. He no longer drives. REVIEW OF SYSTEMS As above in HPI, otherwise 12 systems unremarkable. PHYSICAL EXAMINATION VITAL SIGNS: Blood pressure 100/60, heart rate 68, temperature max 97.6, O2 sat 95 on 2 liters. GENERAL: The patient is awake, alert, in no acute distress. HEENT: Head is normocephalic, atraumatic. Pupils equal and reactive. Oral mucosa pink, moist. NECK: Supple. No JVD. HEART: Heart sounds S1-S2, grade 1/6 systolic murmur best noted on the right sternal border. LUNGS: Relatively clear to auscultation and equal bilaterally. No wheezes, rales or rhonchi. ABDOMEN: Abdomen is soft, nontender. No masses, organomegaly. EXTREMITIES: No cyanosis, clubbing or edema. LABORATORY DATA Lab work shows hemoglobin 12, hematocrit 35, white cell count 12, platelet count of 182, sodium 139, potassium 4.1, BUN 25, creatinine 1.63. Troponins as above. RADIOLOGICAL EXAM Chest x-ray that shows some mild edema, some left lower lobe atelectasis. IMPRESSION This is a very pleasant 86-year-old male with multiple comorbidities, admitted with a non-STEMI, however, I did do the STS calculation which showed a risk mortality of 7.5, morbidity mortality of 32%. He also has history of Parkinson's. He does live alone. However, uses a walker to ambulate. Recommend maximizing medical therapy at this time. No surgical intervention planned at this time. Dictated by: NAVIN Samuel MD SHO Funez/CORIE /1:58 PM /7:39 AM
[2017-05-05 07:56] VITALS: PULSE 77
[2017-05-05 08:00] VITALS: BP 131/61; PULSE 61; RESP 18; TEMP 98; O2SAT 94
[2017-05-05] MEDS: SODIUM CHLORIDE 0.9% FLUSH 10 ML FLUSH IV FLUSH SCH (08:39)
[2017-05-05] MEDS: amLODIPine BESYLATE 5 MG TAB PO SCH (08:39)
[2017-05-05] MEDS: ASPIRIN 81 MG CHEW TAB CHEW SCH (08:39)
[2017-05-05] MEDS: PRAVASTATIN SOD 10 MG TAB PO SCH (08:39)
[2017-05-05 10:49] VITALS: O2SAT 94
[2017-05-05] MEDS ORDERED: CALCIUM CARBONATE 500 MG CHEWABLE TAB CHEW PRN (11:45)
[2017-05-05 12:05] VITALS: BP 127/68; PULSE 68; RESP 18; TEMP 98.2; O2SAT 94
[2017-05-05] MEDS ORDERED: ISOS60TA PO (13:05)
[2017-05-05] MEDS ORDERED: AMLO5 PO (13:05)
--- NOTE | 2017-05-05 13:12 | HHI.DS ---
Discharge Summary Admission Date May 01, 2017 at 21:43 Discharge Date: May 05, 2017 Admitting Diagnosis [place], ELEVATED TROPONIN (1) Parkinson disease ICD Code: G20 - Parkinson's disease Status: Chronic (2) Non-ST elevation PR (NSTEMI) ICD Code: I21.4 - Non-ST elevation (NSTEMI) myocardial infarction Status: Acute Procedures awake and alert, oriented x 3 anicteric lungs- no rales regular rhythm abdomen soft, nontender extremities no edema neuro exam - unremarkable Brief History - From Admission 86-year-old male with a past medical history significant for coronary artery disease, hypertension, hyperlipidemia and Parkinson's disease presents to the emergency department with chest pain. Patient was seen by his veneer matcher, Dr. Lion, this afternoon and a cardiac catheterization was scheduled for Monday. Upon returning to home, the patient started to have severe substernal, crushing chest pain and called EMS. He states the pain was relieved with nitroglycerin and by the time EMS arrived he was pain-free. He also reports shortness of breath, worse with exertion. He was taken to the emergency department where his pain returned, again relieved with topical nitroglycerin. The patient had elevated troponin of 0.13, most recent troponin, on 04/10/17 was 0.03. EKG showed T-wave inversions in V5 and V6, no ST segment elevations or depressions. CBC/BMP: 05/05/17 0454 05/05/17 0454 Significant Findings Laboratory Tests Test 05/02/17 16:00 05/03/17 07:10 05/04/17 09:47 05/05/17 04:54 Activated Partial Thromboplast Time 39.7 SEC (24.3-30.1) 42.9 SEC (24.3-30.1) Blood Urea Nitrogen 21 MG/DL (7-18) 25 MG/DL (7-18) 30 MG/DL (7-18) Estimat Glomerular Filtration Rate 54 ML/MIN (>89) 40 ML/MIN (>89) 38 ML/MIN (>89) White Blood Count 12.4 TH/MM3 (4.0-11.0) Red Blood Count 3.75 MIL/MM3 (4.50-5.90) 4.18 MIL/MM3 (4.50-5.90) Hemoglobin 12.1 GM/DL (13.0-17.0) Hematocrit 35.3 % (39.0-51.0) Creatinine 1.63 MG/DL (0.60-1.30) 1.72 MG/DL (0.60-1.30) Random Glucose 116 MG/DL (74-106) Calcium Level 8.2 MG/DL (8.5-10.1) Imaging Last Impressions Chest X-Ray 05/01/172014 Signed Impressions: Service Date/Time: Monday, May 01, 2017 20:29 - CONCLUSION: 1. Diffuse interstitial process likely representing pulmonary venous hypertension versus mild edema. 2. Moderate hiatal hernia. 3. Left lower lobe superimposed atelectasis or consolidation. Jose Francisco Chambers MD PE at Discharge GENERAL: in NAD CARDIOVASCULAR: Regular rate and rhythm without murmurs, gallops, or rubs. RESPIRATORY: Breath sounds equal bilaterally. No accessory muscle use. GASTROINTESTINAL: Abdomen soft, non-tender, nondistended. MUSCULOSKELETAL: No cyanosis, or edema. BACK: Nontender without obvious deformity. No CVA tenderness. Hospital Course 86-year-old male with past medical history for coronary artery disease, hypertension, hyperlipidemia and Parkinson's disease presents the emergency department with chest pain. 1. NSTEMI -Initial troponin 0.13, EKG showed T-wave inversions in V5 through V6 without ST segment elevations or depressions. -Cardiac catheterization or multivessel disease. Multivessel surgeon was consulted patient not a candidate for surgery. -Discussed with Dr. Lion who stated that patient is also not a good candidate for high risk PCI. Recommend medical management. -Dr. Lion adjusted medication Add Imdur 60mg daily and Norvasc 5mg daily Stopped Valsartan and Spirolactone for further anti-anginal medications No Metoprolol due to baseline bradycardia -discussed with Dr. Lion patient cleared for DC from cardiology standpoint. Follow up in 1 week Hypertension -Now hypotensive. See treatment as above. - Add Imdur 60mg daily and Norvasc 5mg daily Stopped Valsartan and Spirolactone for further anti-anginal medications No Metoprolol due to baseline bradycardia Parkinson's disease -Corrected patient home dosage per nurse. -I spoke to the pharmacist to also confirm patient's dose of Sinemet. Hyperlipidemia -Continue home statin GERD -Continue PPI ENOC on CKD recheck BMP in 3 days with results to PCP Patient has had recent cardiac cath and hypotensive episode continues to produce good amounts of urine discussed with patient the need for continued monitoring of renal function also discussed with Dr. Green recommending DC with Follow up BMP in 3 days results to PCP [facility]- while in hospital - Belsamra not available- -daughter states on Resoril in the past and helped- hypothyroidism- on synthroid Pt Condition on Discharge: Stable Discharge Disposition: Discharge Home Discharge Time: > 30 minutes Discharge Instructions DIET: Follow Instructions for: Heart Healthy Diet Activities you can perform: Regular-No Restrictions Follow up Referrals: Cardiology - [address] Lion PCP Follow-up - [address] Rosales New Medications: Amlodipine (Norvasc) 5 Mg Tab 5 MG PO DAILY for blood pressure, #30 TAB 0 Refills Isosorbide Mononitrate ER (Isosorbide Mononitrate ER) 60 Mg Tab 60 MG PO DAILY@07 for heart, #30 TAB 0 Refills Continued Medications: Aspirin (Aspirin Low Strength) 81 Mg Chew 81 MG CHEW DAILY for blood thinner for 30 Days, #30 EA Carbidopa-Levodopa (Sinemet) 25-100 Mg Tab 1 TAB PO 5 TIMES A DAY for Parkinson Disease Mgmt, #90 TAB 0 Refills Levothyroxine (Synthroid) 100 Mcg Tab 100 MCG PO DAILY for Thyroid, #30 TAB 0 Refills Nitroglycerin SL (Nitroglycerin SL) 0.4 Mg Subl 0.4 MG SL DIRECTED PRN for CHEST PAIN, #100 TAB.SL 0 Refills ONE TABLET UNDER THE TONGUE NEEDED FOR CHEST PAIN, MAY REPEAT EVERY FIVE MINUTES FOR A TOTAL OF 3 DOSES OR CALL 911 IF NO RELIEF Pravastatin (Pravastatin) 10 Mg Tab 10 MG PO DAILY for Cholesterol Management, #30 TAB 0 Refills Discontinued Medications: Isosorbide Mononitrate ER (Isosorbide Mononitrate ER) 30 Mg Mayra 30 MG PO DAILY for Prevent Chest Pain, #30 TAB 0 Refills Nebivolol (Bystolic) 10 Mg Tab 10 MG PO BID for Blood Pressure Management, #30 TAB 0 Refills Spironolactone (Aldactone) 25 Mg Tab 25 MG PO DAILY for CHF, #30 TAB 0 Refills Valsartan (Diovan) 320 Mg Tab 320 MG PO DAILY, #30 TAB 0 Refills Romana Bxo May 05, 2017 13:12
[2017-05-05] MEDS: CARBIDOPA/LEVODOPA 25 MG/100 MG TAB PO SCH (13:54)
--- NOTE | 2017-05-05 18:38 | PD.CARD.PN ---
Subjective Subjective Remarks Doing great today No chest pain Up to the chair, moving around the room Objective Medications Current Medications Sodium Chloride (NS Flush) 2 ml UNSCH PRN IVF FLUSH AFTER USING IV ACCESS; Start 05/01/17 at 20:15; Stop 05/02/17 at 11:01; Status DC Nitroglycerin (Nitrostat Sl) 0.4 mg Q5M PRN SL CHEST PAIN Last administered on 05/05/17 05:45; Start 05/01/17 at 21:15; Stop 05/05/17 at 15:33; Status DC Aspirin (Aspirin Chew) 243 mg ONCE ONCE CHEW Last administered on 05/01/17 21:48; Start 05/01/17 at 21:45; Stop 05/01/17 at 21:46; Status DC Heparin Sodium (Porcine) (Heparin Inj) 4,000 units ONCE ONCE IV Last administered on 05/01/17 21:49; Start 05/01/17 at 21:45; Stop 05/01/17 at 21 :46; Status DC Heparin Sodium/ Dextrose 250 ml @ 9 mls/hr TITRATE PRN IV Coagulation Management Last administered on 05/02/17 23:23; Start 05/01/17 at 22:00; Stop 05/03/17 at 17:40; Status DC Nitroglycerin (Nitroglycerin 2% Oint) 1 inch ONCE ONCE TOPICAL Last administered on 05/01/17 22:19; Start 05/01/17 at 22:15; Stop 05/01/17 at 22 :16; Status DC Sodium Chloride (NS Flush) 2 ml BID IV FLUSH Last administered on 05/04/17 20 :45; Start 05/02/17 at 09:00; Stop 05/05/17 at 15:33; Status DC Sodium Chloride (NS Flush) 2 ml UNSCH PRN IV FLUSH FLUSH AFTER USING IV ACCESS ; Start 05/02/17 at 00:30; Stop 05/05/17 at 15:33; Status DC Morphine Sulfate (Morphine Inj) 2 mg Q30M PRN IV PUSH CHEST PAIN Last administered on 05/03/17 21:15; Start 05/02/17 at 00:30; Stop 05/05/17 at 15 :33; Status DC Ondansetron HCl (Zofran Inj) 4 mg Q6H PRN IV PUSH NAUSEA OR VOMITING Last administered on 05/03/17 21:03; Start 05/02/17 at 00:30; Stop 05/05/17 at 15 :33; Status DC Carbidopa/Levodopa (Sinemet 25-100 Mg) 1 tab 5 TIMES A DAY PO Last administered on 05/04/17 09:11; Start 05/02/17 at 06:00; Stop 05/04/17 at 12 :14; Status DC Levothyroxine Sodium (Synthroid) 100 mcg DAILY@0600 PO Last administered on 06:17; Start 05/02/17 at 06:00; Stop 05/05/17 at 15:33; Status DC Nebivolol (Bystolic) 10 mg BID PO Last administered on 05/03/17 21:04; Start 05/02/17 at 09:00; Stop 05/04/17 at 13:49; Status DC Pravastatin Sodium (Pravachol) 10 mg DAILY PO Last administered on 05/05/17 08:39; Start 05/02/17 at 09:00; Stop 05/05/17 at 15:33; Status DC Spironolactone (Aldactone) 25 mg DAILY PO Last administered on 05/02/17 09:01 ; Start 05/02/17 at 09:00; Stop 05/04/17 at 13:49; Status DC Valsartan (Diovan) 320 mg DAILY PO Last administered on 05/03/17 08:41; Start 05/02/17 at 09:00; Stop 05/04/17 at 13:49; Status DC Sodium Chloride 1,000 ml @ 42 mls/hr [id number] IV Last administered on 02:54; Start 05/02/17 at 11:00; Stop 05/05/17 at 08:33; Status DC Aspirin (Aspirin Chew) 81 mg DAILY CHEW Last administered on 05/05/17 08:39; Start 05/03/17 at 09:00; Stop 05/05/17 at 15:33; Status DC Temazepam (Restoril) 15 mg HS PRN PO SLEEP; Start 05/03/17 at 11:30; Stop at 15:33; Status DC Heparin Sodium/ Sodium Chloride 500 ml @ As Directed STK-MED ONCE .ROUTE Last administered on 05/03/17 16:17; Start 05/03/17 at 16:17; Stop 05/03/17 at 16 :18; Status DC Heparin Sodium (Porcine) (Heparin Inj) 10,000 units STK-MED ONCE .ROUTE ; Start 05/03/17 at 16:17; Stop 05/03/17 at 16:18; Status DC Nitroglycerin 5 ml @ As Directed STK-MED ONCE .ROUTE ; Start 05/03/17 at 16:17 ; Stop 05/03/17 at 16:18; Status DC Midazolam HCl (Versed Inj) 2 mg STK-MED ONCE .ROUTE Last administered on 16:33; Start 05/03/17 at 16:31; Stop 05/03/17 at 16:32; Status DC Fentanyl Citrate (fentaNYL INJ) 100 mcg STK-MED ONCE .ROUTE Last administered on 05/03/17 16:34; Start 05/03/17 at 16:31; Stop 05/03/17 at 16:32; Status DC Hydralazine HCl (Apresoline Inj) 20 mg STK-MED ONCE .ROUTE Last administered on 05/03/17 17:05; Start 05/03/17 at 16:59; Stop 05/03/17 at 17:00; Status DC Miscellaneous Information 1 ONCE ONCE XX ; Start 05/03/17 at 17:30; Stop at 17:42; Status DC Amlodipine Besylate (Norvasc) 5 mg DAILY PO Last administered on 05/05/17 08: 39; Start 05/04/17 at 09:00; Stop 05/05/17 at 15:33; Status DC Isosorbide Mononitrate (Imdur) 60 mg DAILY@07 PO Last administered on 06:17; Start 05/04/17 at 07:00; Stop 05/05/17 at 15:33; Status DC Isosorbide Mononitrate (Imdur) 30 mg ONCE ONCE PO Last administered on 18:55; Start 05/03/17 at 18:45; Stop 05/03/17 at 18:46; Status DC Iohexol (OMNIPAQUE 350 INJ (In Process Inspector)) 50 ml STK-MED ONCE OTHER ; Start at 16:09; Stop 05/04/17 at 08:06; Status DC Carbidopa/Levodopa (Sinemet 25-100 Mg) 1 tab DAILY@0700 PO Last administered on 05/05/17 06:21; Start 05/05/17 at 07:00; Stop 05/05/17 at 15:33; Status DC Carbidopa/Levodopa (Sinemet 25-100 Mg) 3 tab DAILY@1130 PO Last administered on 05/05/17 11:35; Start 05/05/17 at 11:30; Stop 05/05/17 at 15:33; Status DC Carbidopa/Levodopa (Sinemet 25-100 Mg) 3 tab DAILY@1400 PO Last administered on 05/05/17 13:54; Start 05/04/17 at 14:00; Stop 05/05/17 at 15:33; Status DC Carbidopa/Levodopa (Sinemet 25-100 Mg) 2 tab DAILY@1730 PO Last administered on 05/04/17 17:30; Start 05/04/17 at 17:30; Stop 05/05/17 at 15:33; Status DC Carbidopa/Levodopa (Sinemet 25-100 Mg) 2 tab DAILY@2100 PO Last administered on 05/04/17 20:45; Start 05/04/17 at 21:00; Stop 05/05/17 at 15:33; Status DC Calcium Carbonate (Tums Chew) 500 mg Q2H PRN CHEW INDIGESTION Last administered on 05/05/17 12:13; Start 05/05/17 at 11:45; Stop 05/05/17 at 15 :33; Status DC Vital Signs / I&O Vital Signs Date Time Temp Pulse Resp B/P (MAP) Pulse Ox O2 Delivery O2 Flow Rate FiO2 05/05/17 12:05 98.2 68 18 127/68 (87) 94 05/05/17 12:00 94 Room Air 05/05/17 10:49 94 05/05/17 08:57 94 Room Air 05/05/17 08:00 98.0 61 18 131/61 (84) 94 05/05/17 07:56 77 05/05/17 05:50 20 05/05/17 03:45 98.3 63 18 144/70 (94) 99 05/04/17 23:16 97.7 59 18 96/51 (66) 98 05/04/17 23:16 Nasal Cannula 2.00 05/04/17 20:00 64 05/04/17 19:28 Nasal Cannula 2.00 05/04/17 19:28 97.1 69 18 99/55 (70) 100 I/O 05/04/17 05/04/17 05/04/17 05/05/17 05/05/17 05/05/17 07:00 15:00 23:00 07:00 15:00 23:00 Intake Total 742 ml 480 ml 1240 ml 480 ml Output Total 350 ml 400 ml 150 ml 225 ml Balance 392 ml 80 ml 1090 ml 255 ml Intake Oral 240 ml 480 ml 240 ml 480 ml IV Total 502 ml 1000 ml Output Urine Total 350 ml 400 ml 150 ml 225 ml # Voids 2 # Bowel Movements 0 0 Physical Exam GENERAL: NAD, AAOx3 SKIN: Warm and dry. HEAD: Atraumatic. Normocephalic. EYES: Pupils equal and round. No scleral icterus. No injection or drainage. ENT: No nasal bleeding or discharge. Mucous membranes pink and moist. NECK: Trachea midline. No JVD. CARDIOVASCULAR: Regular rate and rhythm. RESPIRATORY: No accessory muscle use. Clear to auscultation. Breath sounds equal bilaterally. GASTROINTESTINAL: Abdomen soft, non-tender, nondistended. Hepatic and splenic margins not palpable. MUSCULOSKELETAL: Extremities without clubbing, cyanosis, or edema. No obvious deformities. Right femoral no hematoma/bruit. NEUROLOGICAL: Awake and alert. No obvious cranial nerve deficits. Motor grossly within normal limits. Five out of 5 muscle strength in the arms and legs. Normal speech. PSYCHIATRIC: Appropriate mood and affect; insight and judgment normal. Laboratory Laboratory Tests Test 05/05/17 04:54 White Blood Count 10.8 TH/MM3 Red Blood Count 4.18 MIL/MM3 Hemoglobin 13.9 GM/DL Hematocrit 39.7 % Mean Corpuscular Volume 95.1 FL Mean Corpuscular Hemoglobin 33.2 PG Mean Corpuscular Hemoglobin Concent 34.9 % Red Cell Distribution Width 13.8 % Platelet Count 160 TH/MM3 Mean Platelet Volume 10.2 FL Blood Urea Nitrogen 30 MG/DL Creatinine 1.72 MG/DL Random Glucose 86 MG/DL Calcium Level 8.8 MG/DL Sodium Level 137 MEQ/L Potassium Level 4.2 MEQ/L Chloride Level 104 MEQ/L Carbon Dioxide Level 24.4 MEQ/L Anion Gap 9 MEQ/L Estimat Glomerular Filtration Rate 38 ML/MIN Assessment and Plan Problem List: (1) CAD (coronary artery disease) ICD Codes: I25.10 - Atherosclerotic heart disease of [place] coronary artery without angina pectoris (2) NSTEMI (non-ST elevated myocardial infarction) ICD Codes: I21.4 - Non-ST elevation (NSTEMI) myocardial infarction Status: Acute (3) Cardiomyopathy ICD Codes: I42.9 - Cardiomyopathy, unspecified Status: Chronic (4) Hypertension ICD Codes: I10 - Hypertension Status: Chronic (5) CHF (congestive heart failure) ICD Codes: I50.9 - Heart failure, unspecified Status: Acute Assessment and Plan 1) NSTEMI/MVCAD Extensive disease of the RCA with long area of calcification, as well as LAD disease CT surgery saw him for consideration of 2 vessel CABG, extremely high risk 2) Will plan to continue medical management Add Imdur 60mg daily and Norvasc 5mg daily Stopped Valsartan and Spirolactone for further anti-anginal medications No Metoprolol due to baseline bradycardia 3) Blood pressure better today 4) NEOC on CKD Will plan to have him have a repeat BMP next week Does not want to stay for fluids and recheck BMP in the morning 5) Cardiovascularly stable for discharge today, will follow up in the office Dimitri Lion DO May 05, 2017 18:38
== END 2017-05-05 15:32 | disposition home or self-care (01) | DRG 281 ==
LOC: NEPE 20:03 → NEDA 21:43 → N04B 22:39
PROVIDERS: ADMIT Family Medicine; ATTEND Family Medicine
PROC: B2111ZZ Fluoroscopy of Multiple Coronary Arteries using Low Osmolar Contrast (ICD-10-PCS; 2017-05-03)
PROC: 4A023N7 Measurement of Cardiac Sampling and Pressure, Left Heart, Percutaneous Approach (ICD-10-PCS; principal; 2017-05-03 11:00)
DX: I21.4 Non-ST elevation (NSTEMI) myocardial infarction (principal); I13.0 Hypertensive heart and chronic kidney disease with heart failure and stage 1 through stage 4 chronic kidney disease, or unspecified chronic kidney disease; N17.9 Acute kidney failure, unspecified; I95.9 Hypotension, unspecified; G20 Parkinson's disease; I42.9 Cardiomyopathy, unspecified; I50.9 Heart failure, unspecified; M41.9 Scoliosis, unspecified; I25.119 Atherosclerotic heart disease of native coronary artery with unspecified angina pectoris; I49.3 Ventricular premature depolarization; E78.5 Hyperlipidemia, unspecified; M19.011 Primary osteoarthritis, right shoulder; E03.9 Hypothyroidism, unspecified; H91.93 Unspecified hearing loss, bilateral; K21.9 Gastro-esophageal reflux disease without esophagitis; K44.9 Diaphragmatic hernia without obstruction or gangrene; N18.9 Chronic kidney disease, unspecified; J44.9 Chronic obstructive pulmonary disease, unspecified; Z96.643 Presence of artificial hip joint, bilateral; Z96.0 Presence of urogenital implants; Z79.82 Long term (current) use of aspirin; Z87.891 Personal history of nicotine dependence; R00.1 Bradycardia, unspecified
CPT/HCPCS: 71010; 80048; 80053; 80061; 82550; 82552; 83735; 84484; 85002; 85025; 85027; 85610; 85730; 93005; 93458; 99152; 99153; C1769; C1893; J0360; J1644; J2250; J2270; J2405; J3010; J7030; Q9967

== ENCOUNTER → 2017-09-12 | Outpatient (CLI) | payer MEDICARE, OTHER ==
[~2017-09-12] MED LIST changes: +AMLO5 PO; -BYST10TA2 PO; -DIOV320T PO; +ISOS60TA PO; +NITR1SUB3 SL; -SPIR25 PO
[2017-09-12 14:03] LABS: AUTOMATED NEUTROPHIL # 5.3 TH/MM3 (1.8-7.7); BASOPHIL % 0.7 % (0.0-2.0); EOSINOPHIL # 0.1 TH/MM3 (0-0.4); EOSINOPHIL % 1.1 % (0.0-4.0); HEMATOCRIT 39.9 % (39.0-51.0); HEMOGLOBIN 13.5 GM/DL (13.0-17.0); LYMPH % 10.3 % (9.0-44.0); LYMPHOCYTE # 0.7 TH/MM3 (1.0-4.8); MEAN CELL VOLUME 91.6 FL (80.0-100.0); MEAN CORPUSCULAR HGB CONC 33.9 % (32.0-36.0); MONO % 7.4 % (0.0-8.0); MONOCYTE # 0.5 TH/MM3 (0-0.9); NEUT % 80.5 % (16.0-70.0); PLATELET COUNT 192 TH/MM3 (150-450); RED BLOOD COUNT 4.36 MIL/MM3 (4.50-5.90); RED CELL DISTRIBUTION WIDTH 14.2 % (11.6-17.2); WHITE BLOOD COUNT 6.6 TH/MM3 (4.0-11.0)
[2017-09-12 14:17] LABS: ALBUMIN 3.9 GM/DL (3.4-5.0); AST (GOT) 30 U/L (15-37); BICARBONATE 25.4 MEQ/L (21.0-32.0); BLOOD UREA NITROGEN 29 MG/DL (7-18); CALCIUM 9.1 MG/DL (8.5-10.1); CHLORIDE 106 MEQ/L (98-107); CHOLESTEROL 161 MG/DL (120-200); CREATININE 1.64 MG/DL (0.60-1.30); GLOMERULAR FILTRATION RATE 40 ML/MIN (>89); GLUCOSE,FASTING 115 MG/DL (74-99); SODIUM (NA) 141 MEQ/L (136-145)
[2017-09-12 14:26] LABS: ALKALINE PHOSPHATASE 84 U/L (45-117); ALT (GPT) 9 U/L (12-78); FREE T4 0.96 NG/DL (0.76-1.46); HDL CHOLESTEROL 80.4 MG/DL (40.0-60.0); LDL CHOLESTEROL 73 MG/DL (0-99); TOTAL BILIRUBIN ADULT 0.6 MG/DL (0.2-1.0); TOTAL PROTEIN 7.6 GM/DL (6.4-8.2); TRIGLYCERIDES 40 MG/DL (42-150)
== END ==
LOC: PLAB 10:58
PROVIDERS: ATTEND Family Medicine
DX: I12.9 Hypertensive chronic kidney disease with stage 1 through stage 4 chronic kidney disease, or unspecified chronic kidney disease (principal); N18.9 Chronic kidney disease, unspecified; E03.9 Hypothyroidism, unspecified; Z13.6 Encounter for screening for cardiovascular disorders; Z79.899 Other long term (current) drug therapy
CPT/HCPCS: 36415; 80053; 80061; 82306; 84439; 84443; 85025

== ENCOUNTER 2018-04-24 12:01 | Inpatient (IN) ==
--- NOTE | 2018-04-24 12:55 | ED ---
HPI General Chief Complaint: Respiratory Symptoms Stated Complaint: SOB Complaint Time Seen by Provider: 04/24/18 12:20 Source: patient Mode of arrival: ambulatory Limitations: no limitations History of Present Illness The patient is a 87-year-old male who presents to the emergency department for shortness of breath. The patient notes mild shortness of breath for the last 2 weeks which has been progressive, worsening over the last 1-4 hours. The patient does note a productive cough producing white to yellow sputum, increasing shortness of breath that is worse with exertion and minimally alleviated at rest. The patient denies any orthopnea or proximal nocturnal dyspnea. The patient does have a history of CHF but denies any known history of COPD, bronchitis, recurrent pneumonia, or pulmonary embolism. The patient denies any recent hospitalizations, prolonged travel, or recent surgery. Symptoms are moderate and progressive. The patient does have a history of coronary artery disease via catheterization last year revealing a clogged artery, they discussed possible CABG, however, he is under medical management with no plan for surgical intervention. The patient also follows up with his primary physician, Dr. Rena Craft. Complaint: Reports shortness of breath and cough Onset (ago): day(s) Severity: moderate Consistency/Duration: constant and progressively worsening Relieving factors: nothing Exacerbating factors: exertion and talking Known history of: Reports congestive heart failure Associated symptoms: Reports cough and sputum production Treatment prior to arrival: Reports none Related Data Home oxygen amount: none Home Medications Medication Instructions Recorded Confirmed amlodipine [Norvasc] 5 mg PO DAILY 04/24/18 04/24/18 aspirin 81 mg PO DAILY 04/24/18 04/24/18 carbidopa-levodopa [Sinemet] 2 tab PO Q4H 04/24/18 04/24/18 dexlansoprazole [Dexilant] 60 mg PO DAILY 04/24/18 04/24/18 isosorbide mononitrate 60 mg PO QAM 04/24/18 04/24/18 lutein 04/24/18 multivitamin 1 tab PO DAILY 04/24/18 04/24/18 temazepam [Restoril] 22.5 mg PO HS 04/24/18 04/24/18 [id number] 04/24/18 [ICaps] vitamin D3-folic acid 1 tab PO DAILY 04/24/18 04/24/18 Allergies Allergy/AdvReac Type Severity Reaction Status Date / Time No Known Allergies Allergy Verified 04/24/18 12:13 Review of Systems ROS: all other systems reviewed are negative [facility] Medical History Medical History CHF (congestive heart failure) (Acute) Social History Social History Substance History: No History of Abuse Smoking Status: Former smoker How Often Do You Have a Drink Containing Alcohol: Never Recent Travel in [facility] within the Last 8 Weeks: No Recent Out of Country Travel within the Last 8 Weeks: No Immunization History Tetanus Immunization: <5 Years Exam Narrative Exam Narrative: GENERAL: Awake, alert, pleasant 87-year-old male who appears his stated age and is in mild respiratory distress. SKIN: Focused skin assessment warm/dry. HEAD: Atraumatic. Normocephalic. EYES: Pupils equal and round. No scleral icterus. No injection or drainage. ENT: No nasal bleeding or discharge. Mucous membranes pink and moist. NECK: Trachea midline. No JVD. CARDIOVASCULAR: Irregular, tachycardic with a heart rate of 105. RESPIRATORY: Tachypnea with a respiratory rate of 28. Clear lung sounds with no audible wheezes, rales, or rhonchi. GASTROINTESTINAL: Abdomen soft, non-tender, nondistended. No rebound tenderness , guarding, or rigidity. MUSCULOSKELETAL: No obvious deformities. No clubbing. No cyanosis. No edema. Calves are soft bile laterally. Mild chronic venous stasis changes to lower extremities bilaterally. NEUROLOGICAL: Awake and alert. No obvious cranial nerve deficits. Motor grossly within normal limits. Normal speech. PSYCHIATRIC: Appropriate mood and affect; insight and judgment normal. Course Initial Documented Vital Signs Temperature 98.2 F 04/24/18 12:04 Pulse Rate 100 H 04/24/18 12:04 Respiratory Rate 40 H 04/24/18 12:04 Pulse Oximetry 91 L 04/24/18 12:04 Last Documented Vital Signs Temperature 98.2 F 04/24/18 12:04 Pulse Rate 105 H 04/24/18 13:20 Respiratory Rate 36 H 04/24/18 13:20 Blood Pressure 160/91 H 04/24/18 12:20 Pulse Oximetry 96 04/24/18 13:20 Medical Decision Making MDM Narrative Medical decision making narrative: IV was established, labs are drawn and sent, and the patient was placed on cardiac telemetry monitoring and continuous pulse oximetry monitoring. EKG was ordered and interpreted. Chest x-ray was obtained. The patient was placed on oxygen via nasal cannula 2 L. Chest x-ray reveals pulmonary edema. BNP is elevated greater than 900, compared to previous one which was 300, considerable change. Troponin is less than 0.02. The patient was still tachypneic on oxygen, was administered Lasix 40 mg. I discussed the patient personally with Dr. Lion who states he will evaluate the patient tomorrow. The patient will be admitted. The on-call medical service was paged for admission. Medical Screen Exam Complete: Yes Emergency Medical Condition: Yes Differential Diagnosis Differential Diagnosis: Differential diagnosis includes CHF, pulmonary edema, pleural effusion, pneumonia, bronchitis, pulmonary embolism, pulmonary fibrosis , metabolic acidosis, sepsis. Lab Data Result diagrams: 04/24/18 12:50 04/24/18 12:50 Lab Results 04/24/18 04/24/18 04/24/18 Range/Units 12:50 12:50 12:50 WBC 8.0 (4.0-11.0) th/mm3 RBC 4.17 L (4.50-5.90) mil/mm3 Hgb 13.3 (13.0-17.0) gm/dL Hct 39.4 (39.0-51.0) % MCV 94.5 (80.0-100.0) fL MCH 31.9 (27.0-34.0) pg MCHC 33.8 (32.0-36.0) % RDW 13.9 (11.6-17.2) % Plt Count 188 (150-450) th/mm3 MPV 9.4 (7.0-11.0) fL Neut % (Auto) 79.9 H (16.0-70.0) % Lymph % (Auto) 9.9 (9.0-44.0) % [place] % (Auto) 8.6 H (0.0-8.0) % Eos % (Auto) 1.2 (0.0-4.0) % Baso % (Auto) 0.4 (0.0-2.0) % Neut # (Auto) 6.4 (1.8-7.7) th/mm3 Lymph # (Auto) 0.8 L (1.0-4.8) th/mm3 [place] # (Auto) 0.7 (0.0-0.9) th/mm3 Eos # (Auto) 0.1 (0.0-0.4) th/mm3 Baso # (Auto) 0.0 (0.0-0.2) th/mm3 WBC Differential . Differential Comment Auto diff final PT 11.1 (9.8-11.6) sec INR 1.1 Ratio APTT 24.5 (23.4-31.7) sec Sodium 140 (136-145) meq/L Potassium 4.6 (3.5-5.1) meq/L Chloride 105 (98-107) meq/L Carbon Dioxide 27.0 (21.0-32.0) meq/L Anion Gap 8 (5-15) meq/L BUN 21 H (7-18) mg/dL Creatinine 1.74 H (0.60-1.30) mg/dL Estimated GFR 37 L (>89) mL/min Random Glucose 149 H (74-106) mg/dL Lactic Acid (0.4-2.0) mmol/L Calcium 8.7 (8.5-10.1) mg/dL Magnesium 2.0 (1.5-2.5) mg/dL Total Bilirubin 0.7 (0.2-1.0) mg/dL AST 38 H (15-37) U/L ALT 12 (12-78) U/L Alkaline Phosphatase 94 (45-117) U/L Total Creatine Kinase 197 (39-308) U/L CK-MB (CK-2) 4.9 H (0.5-3.6) ng/mL Troponin I Less than 0.02 L (0.02-0.05) ng/mL B-Natriuretic Peptide (0-100) pg/mL Total Protein 7.7 (6.4-8.2) g/dL Albumin 3.6 (3.4-5.0) g/dL 04/24/18 04/24/18 Range/Units 12:50 12:50 WBC (4.0-11.0) th/mm3 RBC (4.50-5.90) mil/mm3 Hgb (13.0-17.0) gm/dL Hct (39.0-51.0) % MCV (80.0-100.0) fL MCH (27.0-34.0) pg MCHC (32.0-36.0) % RDW (11.6-17.2) % Plt Count (150-450) th/mm3 MPV (7.0-11.0) fL Neut % (Auto) (16.0-70.0) % Lymph % (Auto) (9.0-44.0) % [place] % (Auto) (0.0-8.0) % Eos % (Auto) (0.0-4.0) % Baso % (Auto) (0.0-2.0) % Neut # (Auto) (1.8-7.7) th/mm3 Lymph # (Auto) (1.0-4.8) th/mm3 [place] # (Auto) (0.0-0.9) th/mm3 Eos # (Auto) (0.0-0.4) th/mm3 Baso # (Auto) (0.0-0.2) th/mm3 WBC Differential Differential Comment PT (9.8-11.6) sec INR Ratio APTT (23.4-31.7) sec Sodium (136-145) meq/L Potassium (3.5-5.1) meq/L Chloride (98-107) meq/L Carbon Dioxide (21.0-32.0) meq/L Anion Gap (5-15) meq/L BUN (7-18) mg/dL Creatinine (0.60-1.30) mg/dL Estimated GFR (>89) mL/min Random Glucose (74-106) mg/dL Lactic Acid 1.7 (0.4-2.0) mmol/L Calcium (8.5-10.1) mg/dL Magnesium (1.5-2.5) mg/dL Total Bilirubin (0.2-1.0) mg/dL AST (15-37) U/L ALT (12-78) U/L Alkaline Phosphatase (45-117) U/L Total Creatine Kinase (39-308) U/L CK-MB (CK-2) (0.5-3.6) ng/mL Troponin I (0.02-0.05) ng/mL B-Natriuretic Peptide 913 H (0-100) pg/mL Total Protein (6.4-8.2) g/dL Albumin (3.4-5.0) g/dL Imaging Data Radiologist's impression: Chest X-Ray 04/24/18 12:47 CONCLUSION: Worsening pulmonary edema. ECG Data EKG Prior to Arrival: No Interpretation: EKG reveals sinus rhythm with frequent supraventricular premature complex. Moderate intraventricular conduction delay with QRS of 110 ms. Nonspecific T wave changes with inverted T waves noted in lead V6 and I. Discharge Plan Discharge Disposition Patient Disposition: 30 Still Patient Discharge Condition Condition: Stable Discharge Details Diagnosis: Congestive heart failure, Tachypnea Physicians Team ED Provider: Hernando Bardales Primary Care Provider: Rena Hernandez Rxs /Orders / Referrals /Forms Prescriptions: No Action multivitamin Tablet 1 tab PO DAILY RF: 0 amlodipine [Norvasc] 5 mg Tablet 5 mg PO DAILY RF: 0 carbidopa-levodopa [Sinemet] 25-100 mg Tablet 2 tab PO Q4H RF: 0 temazepam [Restoril] 22.5 mg Capsule 22.5 mg PO HS RF: 0 dexlansoprazole [Dexilant] 60 mg Capsule,Biphase Delayed Releas 60 mg PO DAILY RF: 0 vitamin D3-folic acid 5,000 unit- 1 mg Tablet 1 tab PO DAILY RF: 0 lutein RF: 0 isosorbide mononitrate 60 mg Tablet Extended Release 24 Hr 60 mg PO QAM RF: 0 aspirin 81 mg Tablet,Delayed Release (Dr/Ec) 81 mg PO DAILY RF: 0 [id number]-min [ICaps] [id number] [id number]-[id number]-unit Tablet Extended Release RF: 0 Status ED Status: Admitted Patient
[2018-04-24 13:11] LABS: Baso % (Auto) 0.4 % (0.0-2.0); Eos # (Auto) 0.1 th/mm3 (0.0-0.4); Eos % (Auto) 1.2 % (0.0-4.0); Hematocrit 39.4 % (39.0-51.0); Hemoglobin 13.3 gm/dL (13.0-17.0); Lymph # (Auto) 0.8 th/mm3 (1.0-4.8); Lymph % (Auto) 9.9 % (9.0-44.0); Mean Corpuscular HGB Conc 33.8 % (32.0-36.0); Mean Corpuscular Hemoglobin 31.9 pg (27.0-34.0); Mean Corpuscular Volume 94.5 fL (80.0-100.0); Mean Platelet Volume 9.4 fL (7.0-11.0); Mono # (Auto) 0.7 th/mm3 (0.0-0.9); Mono % (Auto) 8.6 % (0.0-8.0); Neut # (Auto) 6.4 th/mm3 (1.8-7.7); Neut % (Auto) 79.9 % (16.0-70.0); Platelet Count 188 th/mm3 (150-450); Red Blood Count 4.17 mil/mm3 (4.50-5.90); Red Cell Distribution Width 13.9 % (11.6-17.2)
[2018-04-24 13:25] LABS: Activated Partial Thrombo Time 24.5 sec (23.4-31.7); INR 1.1 Ratio; Prothrombin Time 11.1 sec (9.8-11.6)
[2018-04-24 13:29] LABS: Alanine Aminotransferase 12 U/L (12-78); Albumin 3.6 g/dL (3.4-5.0); Anion Gap 8 meq/L (5-15); Aspartate Aminotransferase 38 U/L (15-37); Blood Urea Nitrogen 21 mg/dL (7-18); Calcium 8.7 mg/dL (8.5-10.1); Chloride 105 meq/L (98-107); Glomerular Filtration Rate 37 mL/min (>89); Glucose,Random 149 mg/dL (74-106); Sodium 140 meq/L (136-145)
[2018-04-24 13:30] LABS: Potassium 4.6 meq/L (3.5-5.1)
[2018-04-24 13:31] LABS: Alkaline Phosphatase 94 U/L (45-117); Creatine Kinase 197 U/L (39-308); Total Protein 7.7 g/dL (6.4-8.2)
[2018-04-24 13:44] LABS: Creatine Kinase MB 4.9 ng/mL (0.5-3.6)
--- NOTE | 2018-04-24 13:56 | XR ---
EXAM DATE: 04/24/2018 1:04 PM EST AGE/SEX: 87 years / Male INDICATIONS: Shortness of breath. CLINICAL DATA: This is the patient's initial encounter. Patient reports that signs and symptoms have been present for 2 days and indicates a pain score of 1/10. MEDICAL/SURGICAL HISTORY: . Cardiovascular disease. Parkinson's. hypertension. hypothyroidism. skin cancer. . Back and hip surgery. right shoulder arthroplasty. COMPAR[place] [facility] [place]. . FINDINGS: There is worsening pulmonary edema since the prior exam. Slight cardiomegaly has not changed. Focal c onsolidation left lung base is difficult to exclude. The rest of the examination has not changed. CONCLUSION: Worsening pulmonary edema. Electronically signed by: Kristyn Key MD 04/24/2018 1:54 PM EST
--- NOTE | 2018-04-24 14:49 | P.HP ---
History of Present Illness Primary Care Physician: Rena Hernandez MD History of Present Illness: 87-year-old white male being admitted for suspected acute heart failure. Patient was in his usual state of health until about 2-3 days ago when he began experiencing worsening shortness of breath. Says his shortness of breath has been bothering him for a while but began worsening recently. Says it is worse with exertion. Denies any worsening lower extremity edema, says he wears stockings most of the time so he does have some baseline edema. Denies taking any diuretics at home. Denies having any chest pain. Reports having a productive cough with a "brown colored" sputum. Denies any fevers. 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 Patient says he handles his medications himself. In the emergency department patient had a chest x-ray done which and apparently reviewed which showed diffuse pulmonary edema. BNP was in the 900s. BMP showed renal insufficiency with a creatinine of 1.74, possibly acute on chronic. EKG which I independently reviewed showed what appeared to have been premature atrial contractions. Otherwise unremarkable. Inpatient Certification: I certify that the inpatient services were ordered in accordance with Medicare regulations governing the order. This includes certification that hospital inpatient services are reasonable and necessary and in the case of services not specified as inpatient-only under 42 CFR 419.22(n), that they are appropriately provided as inpatient services in accordance to with the 2-midnight benchmark under 43 CFR 412.3(e) Estimated Total Length of Stay (Days): 2 Plans for Post Hospital Care: Not yet determined Review of Systems All other systems reviewed negative except as stated in HPI PMFSH - History History Provided By: Patient, Family Member - Medical History Medical History: Medical History (Last Updated 04/24/18 @ 14:59 by Rubens Turner MD) CHF (congestive heart failure) Coronary artery disease Parkinsons disease - Surgical History Surgical History: Surgical History (Last Updated 04/24/18 @ 15:00 by Rubens Turner MD) Hx of bilateral hip replacements - Family History Family History: Family History (Last Updated 04/24/18 @ 14:59 by Rubens Turner MD) Mother Colon cancer - Social History I have reviewed the patient's Social History: Yes - Tobacco History Smoking Status: Former smoker - Alcohol History How Often Do You Have a Drink Containing Alcohol: Never - Substance Use History Substance History: No History of Abuse - Travel History Recent Travel in the [place] Within the Last 8 Weeks: No Recent Travel Out of the Country Within the Last 8 Weeks: No - Immunization History Tetanus Immunization: <5 Years Medications and Allergies Active Medications: Active Medications Sodium Chloride (Ns Flush) 2 ml IV.FLUSH BID SKYE Sodium Chloride (Ns Flush) 2 ml IV.FLUSH PRN PRN PRN Reason: FLUSH AFTER USING IV ACCESS Allergies Allergy/AdvReac Type Severity Reaction Status Date / Time No Known Allergies Allergy Verified 04/24/18 12:13 Home Medications Medication Instructions Recorded Confirmed Type amlodipine [Norvasc] 5 mg PO DAILY 04/24/18 04/24/18 History aspirin 81 mg PO DAILY 04/24/18 04/24/18 History carbidopa-levodopa [Sinemet] 2 tab PO Q4H 04/24/18 04/24/18 History dexlansoprazole [Dexilant] 60 mg PO DAILY 04/24/18 04/24/18 History isosorbide mononitrate 60 mg PO QAM 04/24/18 04/24/18 History lutein 04/24/18 History multivitamin 1 tab PO DAILY 04/24/18 04/24/18 History temazepam [Restoril] 22.5 mg PO HS 04/24/18 04/24/18 History [id number]-min 04/24/18 History [ICaps] vitamin D3-folic acid 1 tab PO DAILY 04/24/18 04/24/18 History Exam Vital signs: Vital Signs 04/24/18 12:04 04/24/18 12:20 04/24/18 13:20 Temperature 98.2 F Pulse Rate 100 H 102 H 105 H Respiratory Rate 40 H 27 H 36 H Blood Pressure 160/91 H Pulse Oximetry 91 L 94 L 96 Intake & Output 04/23/18 04/24/18 04/24/18 18:59 06:59 18:59 Weight 67.132 kg Narrative: VS: afebrile GENERAL: Elderly white male, well-nourished, no acute distress SKIN: Warm and dry. EYES: No scleral icterus. No injection or drainage. ENT: No nasal bleeding or discharge. Mucous membranes pink and moist. CARDIOVASCULAR: Irregular rhythm, regular rate, no murmurs RESPIRATORY: No accessory muscle use. Mild rales heard in the bases, otherwise good aeration and breath sounds bilaterally GASTROINTESTINAL: Abdomen soft, non-tender, nondistended. Extremities: No clubbing, cyanosis. Legs examined without stockings on, appears to have mild to moderate bilateral lower extremity edema which is nonpitting MUSCULOSKELETAL: adequate muscle bulk and tone for age and habitus NEUROLOGICAL: Awake and alert. No obvious cranial nerve deficits. No facial droop nor slurred speech noted. PSYCHIATRIC: Appropriate mood and affect; insight and judgment normal. Results - Labs CBC & Chem 7: 04/24/18 12:50 04/24/18 12:50 Labs: Laboratory Results - last 24 hr 04/24/18 04/24/18 04/24/18 12:50 12:50 12:50 WBC 8.0 RBC 4.17 L Hgb 13.3 Hct 39.4 MCV 94.5 MCH 31.9 MCHC 33.8 RDW 13.9 Plt Count 188 MPV 9.4 Neut % (Auto) 79.9 H Lymph % (Auto) 9.9 Barren % (Auto) 8.6 H Eos % (Auto) 1.2 Baso % (Auto) 0.4 Neut # (Auto) 6.4 Lymph # (Auto) 0.8 L Barren # (Auto) 0.7 Eos # (Auto) 0.1 Baso # (Auto) 0.0 WBC Differential . Differential Comment Auto diff final PT 11.1 INR 1.1 APTT 24.5 Sodium 140 Potassium 4.6 Chloride 105 Carbon Dioxide 27.0 Anion Gap 8 BUN 21 H Creatinine 1.74 H Estimated GFR 37 L Random Glucose 149 H Lactic Acid Calcium 8.7 Magnesium 2.0 Total Bilirubin 0.7 AST 38 H ALT 12 Alkaline Phosphatase 94 Total Creatine Kinase 197 CK-MB (CK-2) 4.9 H Troponin I Less than 0.02 L B-Natriuretic Peptide Total Protein 7.7 Albumin 3.6 04/24/18 04/24/18 12:50 12:50 WBC RBC Hgb Hct MCV MCH MCHC RDW Plt Count MPV Neut % (Auto) Lymph % (Auto) Barren % (Auto) Eos % (Auto) Baso % (Auto) Neut # (Auto) Lymph # (Auto) Barren # (Auto) Eos # (Auto) Baso # (Auto) WBC Differential Differential Comment PT INR APTT Sodium Potassium Chloride Carbon Dioxide Anion Gap BUN Creatinine Estimated GFR Random Glucose Lactic Acid 1.7 Calcium Magnesium Total Bilirubin AST ALT Alkaline Phosphatase Total Creatine Kinase CK-MB (CK-2) Troponin I B-Natriuretic Peptide 913 H Total Protein Albumin - Imaging Impressions Chest X-Ray 04/24/18 12:47 CONCLUSION: Worsening pulmonary edema. Caprini VTE Risk Assessment Caprini VTE Risk Assessment: Moderate/High Risk (score >= 2) Caprini Risk Assessment Model: Point Value = 1 Point Value = 2 Point Value = 3 Point Value = 5 Age 41-60 Minor surgery BMI > 25 kg/m2 Swollen legs Varicose veins or History of unexplained or recurrent spontaneous Oral contraceptives or hormone replacement Sepsis (< 1 month) Serious lung disease, including pneumonia (< 1 month) Abnormal pulmonary function Acute myocardial infarction Congestive heart failure (< 1 month) History of inflammatory bowel disease Medical patient at bed rest Age 61-74 Arthroscopic surgery Major open surgery (> 45 min) Laparoscopic surgery (> 45 min) Malignancy Confined to bed (> 72 hours) Immobilizing plaster cast Central venous access Age >= 75 History of VTE Family history of VTE Factor V Leiden Prothrombin [id number] Lupus anticoagulant Anticardiolipin antibodies Elevated serum homocysteine Heparin-induced thrombocytopenia Other congenital or acquired thrombophilia Stroke (< 1 month) Elective arthroplasty Hip, pelvis, or leg fracture Acute spinal cord injury (< 1 month) Prophylaxis Regimen: Total Risk Factor Score Risk Level Prophylaxis Regimen 0-1 Low Early ambulation 2 Moderate Order ONE of the following: *Sequential Compression Device (SCD) *Heparin 5000 units SQ BID 3-4 Higher Order ONE of the following medications: *Heparin 5000 units SQ TID *Enoxaparin/Lovenox 40 mg SQ daily (WT < 150 kg, CrCl > 30 mL/min) *Enoxaparin/Lovenox 30 mg SQ daily (WT < 150 kg, CrCl > 10-29 mL/min) *Enoxaparin/Lovenox 30 mg SQ BID (WT < 150 kg, CrCl > 30 mL/min) AND/OR *Sequential Compression Device (SCD) 5 or more Highest Order ONE of the following medications: *Heparin 5000 units SQ TID (Preferred with Epidurals) *Enoxaparin/Lovenox 40 mg SQ daily (WT < 150 kg, CrCl > 30 mL/min) *Enoxaparin/Lovenox 30 mg SQ daily (WT < 150 kg, CrCl > 10-29 mL/min) *Enoxaparin/Lovenox 30 mg SQ BID (WT < 150 kg, CrCl > 30 mL/min) AND *Sequential Compression Device (SCD) Assessment and Plan - Plan 87-year-old white male admitted for shortness of breath Shortness of breath Likely secondary to pulmonary edema secondary to possible heart failure Already improving after given dose of 40 mg of Lasix in the ER Remain on telemetry, monitor intake and output Continue Lasix twice daily, obtain echocardiogram -cardiology notified per ER, expecting to see patient tomorrow Renal impairment Suspect acute on chronic, possibly secondary to heart failure, repeat BMP in a.m. Parkinson's disease Continue home medications Lovenox
[2018-04-24] MEDS: Isosorbide Mononitrate 60 MG ER 24HR Tablet (Imdur) PO SCH ×2 (15:51→16:08)
[2018-04-25] MEDS: Isosorbide Mononitrate 60 MG ER 24HR Tablet (Imdur) PO SCH ×2 (05:56→10:32)
--- NOTE | 2018-04-25 08:31 | P.PN ---
Subjective Interval history: This is a pleasant 87 y/o Male who was admitted with suspected acute heart failure, came to Shortness of breath worsening lower extremity edema, denied diuretics at home, Denies having any chest pain. productive cough with a "brown colored" sputum. Denies any fevers. Denies any hemoptysis, the chest x-ray showed diffuse pulmonary edema. BNP was in the 900s. BMP showed renal insufficiency with a creatinine of 1.74, possibly acute on chronic. EKG premature atrial contractions. he has CHF, CAD, Parkinson's Disease. 04/25: Stable in his bedroom, following echocardiogram, Cardiology consult, asked for PT and caseworker protective services for discharge no nausea, vomit or diarrhea. Physical Exam Vital signs: Vital Signs 04/24/18 12:04 04/24/18 12:20 04/24/18 13:20 Temperature 98.2 F Pulse Rate 100 H 102 H 105 H Respiratory Rate 40 H 27 H 36 H Blood Pressure 160/91 H Pulse Oximetry 91 L 94 L 96 04/24/18 14:00 04/24/18 17:31 04/24/18 18:40 Temperature 98.2 F Pulse Rate 101 H 97 H 112 H Respiratory Rate 36 H 26 H 36 H Blood Pressure 161/101 H 165/90 H 116/73 Pulse Oximetry 95 96 04/24/18 20:00 04/24/18 23:59 04/25/18 00:05 Temperature 97.5 F L Pulse Rate 91 H 71 75 Respiratory Rate 18 Blood Pressure 139/77 Pulse Oximetry 96 04/25/18 03:10 04/25/18 04:00 Temperature 97.3 F L Pulse Rate 89 81 Respiratory Rate 18 Blood Pressure 157/69 H Pulse Oximetry 96 Intake & Output 04/24/18 04/25/18 04/25/18 18:59 06:59 18:59 Intake Total 360 / 360 Output Total 1850 / 1850 475 / 475 Balance -1850 / -1850 -115 / -115 Weight 67.132 kg 64.9 kg Intake: Oral 360 / 360 Output: Urine 1850 / 1850 475 / 475 Other: # Voids 1 1 # Bowel Movements 0 Weight On Admission 64.9 kg Narrative: GENERAL: no acute distress SKIN: Warm and dry. EYES: No scleral icterus. No injection or drainage. ENT: No nasal bleeding or discharge. Mucous membranes pink and moist. CARDIOVASCULAR: Irregular rhythm, regular rate, no murmurs RESPIRATORY: No accessory muscle use. Mild rales heard in the bases. GASTROINTESTINAL: Abdomen soft, non-tender, nondistended. EXTREMITIES: No clubbing, cyanosis. edema 2+ MUSCULOSKELETAL: adequate muscle bulk and tone for age and habitus NEUROLOGICAL: Awake and alert. No obvious cranial nerve deficits. No facial droop nor slurred speech noted. PSYCHIATRIC: Appropriate mood and affect; insight and judgment normal. Results - Labs CBC & Chem 7: 04/24/18 12:50 04/24/18 12:50 Laboratory Results - last 24 hr 04/24/18 04/24/18 04/24/18 12:50 12:50 12:50 WBC 8.0 RBC 4.17 L Hgb 13.3 Hct 39.4 MCV 94.5 MCH 31.9 MCHC 33.8 RDW 13.9 Plt Count 188 MPV 9.4 Neut % (Auto) 79.9 H Lymph % (Auto) 9.9 Ferry % (Auto) 8.6 H Eos % (Auto) 1.2 Baso % (Auto) 0.4 Neut # (Auto) 6.4 Lymph # (Auto) 0.8 L Ferry # (Auto) 0.7 Eos # (Auto) 0.1 Baso # (Auto) 0.0 WBC Differential . Differential Comment Auto diff final PT 11.1 INR 1.1 APTT 24.5 Sodium 140 Potassium 4.6 Chloride 105 Carbon Dioxide 27.0 Anion Gap 8 BUN 21 H Creatinine 1.74 H Estimated GFR 37 L Random Glucose 149 H Lactic Acid Calcium 8.7 Magnesium 2.0 Total Bilirubin 0.7 AST 38 H ALT 12 Alkaline Phosphatase 94 Total Creatine Kinase 197 CK-MB (CK-2) 4.9 H Troponin I Less than 0.02 L B-Natriuretic Peptide Total Protein 7.7 Albumin 3.6 04/24/18 04/24/18 12:50 12:50 WBC RBC Hgb Hct MCV MCH MCHC RDW Plt Count MPV Neut % (Auto) Lymph % (Auto) Ferry % (Auto) Eos % (Auto) Baso % (Auto) Neut # (Auto) Lymph # (Auto) Ferry # (Auto) Eos # (Auto) Baso # (Auto) WBC Differential Differential Comment PT INR APTT Sodium Potassium Chloride Carbon Dioxide Anion Gap BUN Creatinine Estimated GFR Random Glucose Lactic Acid 1.7 Calcium Magnesium Total Bilirubin AST ALT Alkaline Phosphatase Total Creatine Kinase CK-MB (CK-2) Troponin I B-Natriuretic Peptide 913 H Total Protein Albumin Microbiology 04/24/18 12:50 Nasal Wash Influenza Types A,B Antigen - Final Negative for FLU A and B antigen Infection due to influenza A or B cannot be ruled out since the antigen present in the sample may be below the detection limit of the test. - Imaging Impressions Chest X-Ray 04/24/18 12:47 CONCLUSION: Worsening pulmonary edema. - Procedures none Assessment and Plan - Plan 87-year-old white male admitted for shortness of breath Shortness of breath Likely secondary to pulmonary edema secondary to possible heart failure Already improving after given dose of 40 mg of Lasix in the ER Remain on telemetry, monitor intake and output Continue Lasix twice daily, obtain echocardiogram -cardiology notified per ER Renal impairment Suspect acute on chronic, possibly secondary to heart failure, repeat BMP in a.m. Parkinson's disease Continue home medications Lovenox Code Status: Full code. Discussed Condition With: Patient and Nurse Miss Tineo Discharge Planning: once cleared by Cardiology
[2018-04-25] MEDS: amLODIPine 5 MG Tablet PO SCH (10:23)
--- NOTE | 2018-04-25 17:19 | ECHRPT ---
Indication: SYNCOPE CONCLUSIONS The left ventricular systolic function is moderately reduced with an estimated ejection fraction of 40%. Normal left ventricular size. Wall thickness is normal. There is moderate global left ventricular dysfunction. Mild thickening of the mitral valve leaflets. Trace mitral valve regurgitation. Moderate mitral annular calcification. Mild mitral valve stenosis. . Diffuse calcification of the aortic valve. Mild aortic valve regurgitation. Mild aortic valve stenosis. Mild thickening of the tricuspid valve leaflets. There is trace tricuspid valve regurgitation. The estimated pulmonary arterial pressure is 24 mmHg. BP: / HR: Rhythm: Sinus MEASUREMENTS (Male / Female) Normal Values Technical Quality:Fair 2D ECHO LV Diastolic Diameter PLAX 5.2 cm 4.2 - 5.9 / 3.9 - 5.3 cm LV Systolic Diameter PLAX 4.6 cm IVS Diastolic Thickness 1.1 cm 0.6 - 1.0 / 0.6 - 0.9 cm LVPW Diastolic Thickness 1.1 cm 0.6 - 1.0 / 0.6 - 0.9 cm LV Relative Wall Thickness 0.4 RV Internal Dim ED PLAX 2.8 cm LVOT Diameter 1.9 cm LA Systolic Diameter LX 3.5 cm 3.0 - 4.0 / 2.7 - 3.8 cm LV Ejection Fraction MOD 4C 34.5 % LV Ejection Fraction 4C AL 37.0 % M-MODE Aortic Root Diameter MM 3.6 cm LA Systolic Diameter MM 3.6 cm LA Ao Ratio MM 1.0 AV Cusp Separation MM 0.7 cm DOPPLER AV Peak Velocity 300.0 cm/s AV Peak Gradient 36.0 mmHg AV Mean Gradient 20.0 mmHg AV Velocity Time Integral 65.4 cm AI Peak Velocity 376.0 cm/s AI Peak Gradient 56.6 mmHg AI Pressure Half Time 605.0 ms LVOT Peak Velocity 90.9 cm/s LVOT Peak Gradient 3.3 mmHg LVOT Velocity Time Integral 18.4 cm AV Area Cont Eq vti 0.8 cm AV Area Cont Eq pk 0.9 cm MV Peak Velocity 136.0 cm/s MV Peak Gradient 7.4 mmHg MV Mean Velocity 78.3 cm/s MV Mean Gradient 3.0 mmHg MV Area PHT 2.7 cm Mitral E Point Velocity 88.4 cm/s Mitral A Point Velocity 121.0 cm/s Mitral E to A Ratio 0.7 LV E' Lateral Velocity 5.2 cm/s Mitral E to LV E' Lateral Ratio 17.1 LV E' Septal Velocity 4.3 cm/s Mitral E to LV E' Septal Ratio 20.6 TR Peak Velocity 186.0 cm/s TR Peak Gradient 13.8 mmHg Right Atrial Pressure 10.0 mmHg Pulmonary Artery Systolic Pressu 23.8 mmHg Right Ventricular Systolic Press 23.8 mmHg PV Peak Velocity 65.2 cm/s PV Peak Gradient 1.7 mmHg FINDINGS LEFT VENTRICLE The left ventricular systolic function is moderately reduced with an estimated ejection fraction of 40%. Normal left ventricular size. Wall thickness is normal. There is moderate global left ventricular dysfunction. RIGHT VENTRICLE Normal right ventricular size and systolic function. LEFT ATRIUM The left atrial size is normal. RIGHT ATRIUM The right atrial size is normal. ATRIAL SEPTUM Normal atrial septal thickness without atrial level shunting by limited color doppler interrogation. AORTA The aortic root and proximal ascending aorta are normal in size on limited imaging. MITRAL VALVE Mild thickening of the mitral valve leaflets. Trace mitral valve regurgitation. Moderate mitral annular calcification. Mild mitral valve stenosis. Mitral valve mean gradient is 3 mmHg. AORTIC VALVE The aortic valve is not well visualized. Diffuse calcification of the aortic valve. Mild aortic valve regurgitation. Mild aortic valve stenosis. Aortic valve area is 0.8 cm. Aortic valve mean gradient is 20 mmHg. TRICUSPID VALVE Mild thickening of the tricuspid valve leaflets. There is trace tricuspid valve regurgitation. The estimated pulmonary arterial pressure is 23.8 mmHg. PULMONARY VALVE No pulmonary valve regurgitation or stenosis. VESSELS The inferior vena cava is normal in size. PERICARDIUM No pericardial effusion. Melania Lara MD, FACC (Electronically Signed) Final Date:25 April 2018 17:17
--- NOTE | 2018-04-25 20:04 | ECG ---
Date Performed: 04/24/2018 Time Performed: 12:22:20 PTAGE: 87 years EKG: Sinus rhythm WITH FREQUENT SUPRAVENTRICULAR PREMATURE COMPLEXES MODERATE INTRAVENTRICULAR CONDUCTION DELAY NONSPE CIFIC ST & T-WAVE ABNORMALITY ABNORMAL ECG PREVIOUS TRACING : 05/02/2017 07.45 Since the previous tracing, no significant change noted DOCTOR: Fernando Self Interpretating Date/Time 04/25/2018 20:03:28
--- NOTE | 2018-04-26 01:32 | MB ---
cc: Dimitri Lion DO DATE: 04/25/2018 REASON FOR CONSULTATION: Heart failure. HISTORY OF PRESENT ILLNESS: Bishop Ayala is a pleasant 87-year-old male, whom I see in the office and presented due to shortness of breath. He was doing relatively well since last seeing him, but noticed over the past 2-3 days, he has been getting more and more short of breath. Previously when he was in the hospital, he was diuresed, but has not been taking his diuretics at home. He denies any lower extremity edema, but he does wear stockings most of the time and seems to keep his edema from building up. He has also had a productive cough with brown colored sputum. He rarely gets chest pain when he does too much and takes a nitroglycerin for this. He states that he has been eating 2 slices of maza every morning as well as other salty foods at home. In seeing him, he is currently doing relatively well and has diuresed 2 liters. PAST MEDICAL HISTORY: Congestive heart failure. We have discussed being on a diuretic before, but he has been hesitant to take them as he feels that he has to use the restroom too often. In seeing him, he is currently hemodynamically stable without chest pain or shortness of breath and has diuresed 2 liters. PAST MEDICAL HISTORY: 1. Coronary artery disease. 2. Chronic systolic heart failure. 3. Parkinson disease. PAST SURGICAL HISTORY: 1. Bilateral hip replacements. 2. Cardiac catheterization (05/03/2017): Left main normal. LAD 50% in the proximal portion and 70% in the mid portion with 50% in the mid to distal portion. Left circumflex 50%. RCA extensive disease throughout the proximal, mid and distal portion with extensive calcification. 3. Right shoulder surgery. 4. Left inguinal hernia repair. 5. Tonsillectomy. ALLERGIES: NO KNOWN DRUG ALLERGIES. MEDICATIONS: 1. Dexilant 60 mg daily. 2. Norvasc 5 mg daily. 3. Sinemet 2 tabs every 4 hours. 4. Imdur 60 mg every morning. 5. Restoril 22.5 mg every night. 6. Aspirin 81 mg daily. FAMILY HISTORY: Denies premature coronary artery disease or sudden cardiac within the family. SOCIAL HISTORY: The patient is a former smoker. He drinks Martini most nights. Denies drug abuse. REVIEW OF SYSTEMS: Fourteen systems were reviewed including osteopathic. Pertinent positives and negatives above, otherwise negative. PHYSICAL EXAMINATION: VITAL SIGNS: Temperature 98.4, heart rate 94, blood pressure 137/84, respirations 18, pulse oximetry 96% on 2 liters. GENERAL: The patient is an older gentleman, alert, awake and oriented x3, in no acute distress. HEENT: Extraocular muscles intact. Mucous membranes moist. NECK: Supple. No JVD at 45 degrees. No carotid bruits heard bilaterally. Carotid upstroke is brisk in nature. HEART: Regular rate and rhythm. Positive first and second heart sounds with no noted murmurs, gallops or rubs. LUNGS: Clear to auscultation bilaterally. No wheezes, rales or rhonchi. ABDOMEN: Soft, nontender, nondistended. No organomegaly noted. EXTREMITIES: Show no clubbing, cyanosis or edema. Femoral and distal pulses are intact bilaterally. NEUROLOGIC: No focal deficits. SKIN: Warm, dry and intact. OSTEOPATHIC: No kyphoscoliosis, lordosis or paraspinal tender points. LABORATORY DATA: Hemoglobin 13.3, hematocrit 39.4, platelets 188. Potassium 4.6, BUN 21, creatinine 1.74. Troponin less than 0.02. Electrocardiogram (04/24/2018 at 12:22): Sinus rhythm with frequent PACs, moderate intraventricular conduction delay, nonspecific ST-T wave changes, possible LVH. ASSESSMENT: 1. Acute on chronic systolic heart failure. 2. Noncompliance with dietary sodium. 3. Shortness of breath due to heart failure. 4. Acute on chronic kidney disease. 5. Parkinson disease. 6. Hypertension. 7. Hyperlipidemia. 8. Known significant coronary artery disease for medical treatment. RECOMMENDATIONS: 1. Mr. Ayala previously underwent a cardiac catheterization and was found to have multivessel disease with extensive disease of his RCA. He was seen by CT surgery and at that time felt that the risk was too high for consideration of coronary artery bypass grafting. 2. We did discuss consideration of high risk PCI, but he would like to avoid this and continue to be treated medically. We once again had this discussion and he would like to continue on medical management as he has done relatively well until this time. 3. His acute on chronic systolic heart failure is most likely due to excessive dietary sodium intake. We discussed this and he will attempt to decrease this. 4. He will continue to be diuresed. He appears that he is almost to a compensated state. 5. As he has had trouble with Lasix before due to having to use the restroom frequently, after a shorter period of time, consideration will be made for placing him on Bumex due to its longer state. 6. Further recommendations will be made based on the hospital course. Thank you for allowing me to see Bishop Ayala. If there are any questions, please do not hesitate to call. Dimitri Lion DO VGP/sj , 12:40 AM , 12:53 AM
[2018-04-26 07:02] LABS: Calcium 8.7 mg/dL (8.5-10.1); Carbon Dioxide 29.7 meq/L (21.0-32.0); Magnesium 1.9 mg/dL (1.5-2.5); Potassium 4.2 meq/L (3.5-5.1)
[2018-04-26] MEDS: Isosorbide Mononitrate 60 MG ER 24HR Tablet (Imdur) PO SCH (08:41)
[2018-04-26] MEDS: amLODIPine 5 MG Tablet PO SCH (08:42)
--- NOTE | 2018-04-26 08:53 | P.PN ---
Subjective Interval history: This is a pleasant 87 y/o Male who was admitted with suspected acute heart failure, came to Shortness of breath worsening lower extremity edema, denied diuretics at home, Denies having any chest pain. productive cough with a "brown colored" sputum. Denies any fevers. Denies any hemoptysis, the chest x-ray showed diffuse pulmonary edema. BNP was in the 900s. BMP showed renal insufficiency with a creatinine of 1.74, possibly acute on chronic. EKG premature atrial contractions. he has CHF, CAD, Parkinson's Disease. 04/25: Stable in his bedroom, following echocardiogram, Cardiology consult, asked for PT and porter sample case for discharge 04/26: Improving discussed with drilling fluids specialist doctor Ayad recommended for discharge and follow as outpatient no nausea, vomit or diarrhea recommended not to eat with salt. be compliant with medications. Physical Exam Vital signs: Vital Signs 04/25/18 09:00 04/25/18 10:48 04/25/18 12:00 Temperature 97.7 F Pulse Rate 70 96 H Respiratory Rate 16 Blood Pressure 115/59 L Pulse Oximetry 96 98 04/25/18 16:45 04/25/18 20:00 04/25/18 20:38 Temperature 98.5 F 98.4 F Pulse Rate 82 94 H Respiratory Rate 24 18 Blood Pressure 156/85 H 137/84 Pulse Oximetry 98 96 96 04/25/18 23:18 Temperature 97.4 F L Pulse Rate 71 Respiratory Rate 18 Blood Pressure 139/67 Pulse Oximetry 96 Intake & Output 04/25/18 04/26/18 04/26/18 18:59 06:59 18:59 Intake Total 1620 / 1620 Output Total 200 / 200 300 / 300 Balance -200 / -200 1320 / 1320 Weight 64.9 kg Intake: Oral 1620 / 1620 Output: Urine 200 / 200 300 / 300 Other: # Voids 1 1,350 Date of Last Bowel Movement 04/24/18 04/23/18 # Bowel Movements 0 Narrative: GENERAL: no acute distress SKIN: Warm and dry. EYES: No scleral icterus. No injection or drainage. ENT: No nasal bleeding or discharge. Mucous membranes pink and moist. CARDIOVASCULAR: Irregular rhythm, regular rate, no murmurs RESPIRATORY: No accessory muscle use. no wheezing or crackles. GASTROINTESTINAL: Abdomen soft, non-tender, nondistended. EXTREMITIES: No clubbing, cyanosis. no edema. MUSCULOSKELETAL: adequate muscle bulk and tone for age and habitus NEUROLOGICAL: Awake and alert. No obvious cranial nerve deficits. No facial droop nor slurred speech noted. PSYCHIATRIC: Appropriate mood and affect; insight and judgment normal. Results - Labs CBC & Chem 7: 04/24/18 12:50 04/26/18 05:00 Laboratory Results - last 24 hr 04/26/18 05:00 Sodium 139 Potassium 4.2 Chloride 102 Carbon Dioxide 29.7 Anion Gap 7 BUN 19 H Creatinine 1.47 H Estimated GFR 45 L Random Glucose 97 Calcium 8.7 Magnesium 1.9 Microbiology 04/24/18 13:10 Blood - Peripheral Aerobic Blood Culture - Preliminary No growth in 1 day 04/24/18 13:10 Blood - Peripheral Anaerobic Blood Culture - Preliminary No growth in 1 day 04/24/18 13:05 Blood - Peripheral Aerobic Blood Culture - Preliminary No growth in 1 day 04/24/18 13:05 Blood - Peripheral Anaerobic Blood Culture - Preliminary No growth in 1 day - Imaging Chest X-Ray 04/24/18 12:47 CONCLUSION: Worsening pulmonary edema. - Procedures none Assessment and Plan - Plan 87-year-old white male admitted for shortness of breath Shortness of breath Likely secondary to pulmonary edema secondary to possible heart failure Improved, at this time improving renal function will continue Lasix by mouth EF 40%, global left ventricular dysfunction, as per drilling fluids specialist doctor Ayad okay to discharge home and follow recommendation about his salt intake Renal impairment improving. Suspect acute on chronic, possibly secondary to heart failure Parkinson's disease Continue home medications Lovenox Code Status: Full code. Discussed Condition With: patient, Nurse Miss Soriano and drilling fluids specialist doctor Dimitri Lion Discharge Planning: discharge home now.
[2018-04-26 16:59] VITALS: BP 135/75; PULSE 69; RESP 20; TEMP 97.7; O2SAT 96
--- NOTE | 2018-04-26 23:21 | P.PNCA ---
Subjective Interval history: No complaints Feels well Medications and Allergies Allergies Allergy/AdvReac Type Severity Reaction Status Date / Time No Known Allergies Allergy Verified 04/24/18 12:13 Home Medications Medication Instructions Recorded Confirmed Type amlodipine [Norvasc] 5 mg PO DAILY 04/24/18 04/24/18 History aspirin 81 mg PO DAILY 04/24/18 04/24/18 History carbidopa-levodopa [Sinemet] 2 tab PO Q4H 04/24/18 04/24/18 History dexlansoprazole [Dexilant] 60 mg PO DAILY 04/24/18 04/24/18 History isosorbide mononitrate 60 mg PO QAM 04/24/18 04/24/18 History lutein 04/24/18 History multivitamin 1 tab PO DAILY 04/24/18 04/24/18 History temazepam [Restoril] 22.5 mg PO HS 04/24/18 04/24/18 History [id number] 04/24/18 History [ICaps] vitamin D3-folic acid 1 tab PO DAILY 04/24/18 04/24/18 History levothyroxine 100 mcg PO DAILY 04/26/18 04/26/18 History Physical Exam Vital signs: Vital Signs 04/26/18 08:00 04/26/18 09:38 04/26/18 13:36 Temperature 97.5 F L 98 F Pulse Rate 70 80 Respiratory Rate 24 22 Blood Pressure 138/77 106/59 L Pulse Oximetry 99 98 98 04/26/18 16:00 Temperature 97.7 F Pulse Rate 69 Respiratory Rate 20 Blood Pressure 135/75 Pulse Oximetry 96 Intake & Output 04/26/18 04/26/18 04/27/18 06:59 18:59 06:59 Intake Total 1620 / 1620 Output Total 300 / 300 200 / 200 Balance 1320 / 1320 -200 / -200 Weight 64.9 kg Intake: Oral 1620 / 1620 Output: Urine 300 / 300 200 / 200 Other: # Voids 1,350 Date of Last Bowel Movement 04/23/18 04/23/18 # Bowel Movements 0 Narrative: GENERAL: no acute distress SKIN: Warm and dry. EYES: No scleral icterus. No injection or drainage. ENT: No nasal bleeding or discharge. Mucous membranes pink and moist. CARDIOVASCULAR: Irregular rhythm, regular rate, no murmurs RESPIRATORY: No accessory muscle use. no wheezing or crackles. GASTROINTESTINAL: Abdomen soft, non-tender, nondistended. EXTREMITIES: No clubbing, cyanosis. no edema. MUSCULOSKELETAL: adequate muscle bulk and tone for age and habitus NEUROLOGICAL: Awake and alert. No obvious cranial nerve deficits. No facial droop nor slurred speech noted. PSYCHIATRIC: Appropriate mood and affect; insight and judgment normal. Results 04/24/18 12:50 04/26/18 05:00 Comprehensive Metabolic Panel 04/26/18 Range/Units 05:00 Sodium 139 (136-145) meq/L Potassium 4.2 (3.5-5.1) meq/L Chloride 102 (98-107) meq/L Carbon Dioxide 29.7 (21.0-32.0) meq/L BUN 19 H (7-18) mg/dL Creatinine 1.47 H (0.60-1.30) mg/dL Calcium 8.7 (8.5-10.1) mg/dL Intake and Output 04/26/18 04/26/18 04/27/18 14:59 22:59 06:59 Output Total 200 / 200 Balance -200 / -200 Output: Urine 200 / 200 Other: Date of Last Bowel Movement 04/23/18 Assessment and Plan - Assessment (1) Acute on chronic systolic heart failure Code(s): I50.23 - Acute on chronic systolic (congestive) heart failure Status : Acute (2) CAD (coronary artery disease) Code(s): I25.10 - Atherosclerotic heart disease of [place] coronary artery without angina pectoris Status: Acute (3) Congestive heart failure Code(s): I50.9 - Heart failure, unspecified Status: Acute (4) Tachypnea Code(s): R06.82 - Tachypnea, not elsewhere classified Status: Acute - Plan 1) Acute on chronic systolic heart failure Diuresed well Previously unwilling to take Lasix due to having to urinate so much over 6 [address] attempt to place on Bumex at home Will attempt to decrease dietary sodium 2) CAD Con't medical management 3) Cardiovascularly stable for discharge (3) Congestive heart failure Qualifiers: Heart failure type: unspecified Heart failure chronicity: acute on chronic Qualified Code(s): I50.9 - Heart failure, unspecified
== END 2018-04-26 18:00 | disposition home or self-care (01) ==
LOC: NEPE 12:01 → NEDA 14:23 → UNDODISIN 17:00 → NEDA 18:22 → N06 18:23
PROVIDERS: ADMIT Internal Medicine; ATTEND Internal Medicine